=== PATIENT | male | born 1985 | race Caucasian/White ===

== ENCOUNTER 2020-01-03 15:35 | Outpatient (REF) | payer OTHER, SELFPAY | END 2020-01-03 15:36 | disposition home or self-care (01) | LOC: HO.LAB 15:35 | PROVIDERS: Visit Provider Internal Medicine | DX: Z20.828 Contact with and (suspected) exposure to other viral communicable diseases (principal) | CPT/HCPCS: 87635 ==

== ENCOUNTER 2020-01-20 11:45 | Emergency (ER) | payer OTHER, SELFPAY ==
[2020-01-20 11:58] VITALS: BP 147/101; PULSE 88; RESP 16; TEMP 36.8; O2SAT 95; BMI 29.5
--- NOTE | 2020-01-20 12:12 | US_ITS ---
EXAMINATION: US VENOUS ULTRASOUND WITH DOPPLER LOWER EXTREMITY, RIGHT CLINICAL INFORMATION: Pain COMPARISON: None TECHNIQUE: Ultrasound of the deep veins is performed from the hip to the calf with compression sonography and color and pulse Doppler assessment. Spectral analysis with color-flow imaging is performed. FINDINGS: There is normal venous compression and respiratory variation and augmented flow. The visualized common femoral vein, superficial femoral vein, profunda femoral vein, popliteal vein, and the trifurcation region shows no evidence of deep venous thrombosis. There is no significant popliteal fossa cyst. US/US venous duplex LE RT IMPRESSION: No DVT demonstrated in the right lower extremity.
--- NOTE | 2020-01-20 12:12 | XR_ITS ---
EXAMINATION: XR TIBIA AND FIBULA, RIGHT XR ANKLE, RIGHT XR FOOT, RIGHT CLINICAL INFORMATION: Pain. No trauma. COMPARISON: Right calcaneus radiographs 01/29/2017. TECHNIQUE: Right tibia and fibula AP and lateral views 3 views of the ankle and 3 views of the right foot combined on 5 images. FINDINGS: Right tibia and fibula: The alignment is normal. No fracture or dislocation or acute osseous abnormality is seen. Right ankle: The ankle mortise is symmetric. The talar dome is intact. No fracture or dislocation or acute osseous abnormality is seen. Right foot: The alignment is normal. No fracture, dislocation or acute osseous abnormality is seen. XR/XR foot RT min 3V IMPRESSION: Unremarkable examinations.
--- NOTE | 2020-01-20 12:12 | XR_ITS ---
EXAMINATION: XR TIBIA AND FIBULA, RIGHT XR ANKLE, RIGHT XR FOOT, RIGHT CLINICAL INFORMATION: Pain. No trauma. COMPARISON: Right calcaneus radiographs 01/29/2017. TECHNIQUE: Right tibia and fibula AP and lateral views 3 views of the ankle and 3 views of the right foot combined on 5 images. FINDINGS: Right tibia and fibula: The alignment is normal. No fracture or dislocation or acute osseous abnormality is seen. Right ankle: The ankle mortise is symmetric. The talar dome is intact. No fracture or dislocation or acute osseous abnormality is seen. Right foot: The alignment is normal. No fracture, dislocation or acute osseous abnormality is seen. XR/XR ankle RT 2V IMPRESSION: Unremarkable examinations.
--- NOTE | 2020-01-20 12:12 | US_ITS ---
EXAMINATION: ULTRASOUND LOWER EXTREMITY ARTERIAL DOPPLER CLINICAL INFORMATION: Evaluate for arterial occlusion COMPARISON: None TECHNIQUE: Grayscale and color Doppler sonographic evaluation of the right lower extremity arterial vasculature performed with spectral analysis FINDINGS: Trace plaque present within the common femoral artery. Otherwise, no significant atherosclerotic vascular disease is present. RIGHT (PSV/Waveform): * KETTLE COOK: 109 cm/s, triphasic * PFA: 51 cm/s, triphasic * Proximal SFA: 107 cm/s, triphasic * Mid SFA: 103 cm/s, triphasic * Distal SFA: 70 cm/s, triphasic * Popliteal: 38cm/s, triphasic * ROUTE SALES ASSOCIATE: 60 cm/s, 70 cm/s, triphasic US/US arterial duplex LE RT IMPRESSION: No arterial occlusion within the left lower extremity. Trace soft plaque present within the common femoral artery.
--- NOTE | 2020-01-20 12:12 | XR_ITS ---
EXAMINATION: XR TIBIA AND FIBULA, RIGHT XR ANKLE, RIGHT XR FOOT, RIGHT CLINICAL INFORMATION: Pain. No trauma. COMPARISON: Right calcaneus radiographs 01/29/2017. TECHNIQUE: Right tibia and fibula AP and lateral views 3 views of the ankle and 3 views of the right foot combined on 5 images. FINDINGS: Right tibia and fibula: The alignment is normal. No fracture or dislocation or acute osseous abnormality is seen. Right ankle: The ankle mortise is symmetric. The talar dome is intact. No fracture or dislocation or acute osseous abnormality is seen. Right foot: The alignment is normal. No fracture, dislocation or acute osseous abnormality is seen. XR/XR tibia fibula RT 2V IMPRESSION: Unremarkable examinations.
--- NOTE | 2020-01-20 12:13 | ECG_ITS ---
Test Reason : WEAKNESS Blood Pressure : / mmHG Vent. Rate : 068 BPM Atrial Rate : 068 BPM P-R Int : 182 ms QRS Dur : 084 ms QT Int : 390 ms P-R-T Axes : 043 040 045 degrees QTc Int : 414 ms Normal sinus rhythm Nonspecific ST abnormality Possible Early repolarization Borderline ECG When compared with ECG of 24-SEP-2019 21:49, No significant change was found Referred By: Kathia Pires Electronically Signed By:RANJAAN PETERS MD
--- NOTE | 2020-01-20 12:24 | ED_ITS ---
HPI - Extremity Problem General Chief complaint: Extremity Problem Stated complaint: arm pain Time Seen by Provider: 01/20/20 11:58 Source: patient Mode of arrival: ambulatory Limitations: no limitations History of Present Illness HPI Narrative: 34-year-old male with a past medical history of pulmonary embolism not on anticoagulation here with right lower extremity pain. He tells me he has had pain for 6 days and the right lower extremity with intermittent numbness and tingling over the foot. Pain is worsened with weight-bearing. He denies any injury or trauma. He feels like his right foot is cool to touch. The pain radiates all the way up to his right shoulder. Denies swelling or redness or fevers or chills. No chest pain or shortness of breath. He is also complaining of upper extremity muscle aches and soreness. MD Complaint: extremity pain and cold extremity Onset (ago): day(s) (6days) Pain Consistency: intermittent Location: right Quality: burning and sharp Radiation: proximal Relieving factors: immobilization and elevation Exacerbating factors: weight bearing, walking, exertion and palpation Associated symptoms: denies other symptoms Related Data Allergies Allergy/AdvReac Type Severity Reaction Status Date / Time No Known Allergies Allergy Verified 01/20/20 11:58 [No Known Allergies*] Review of Systems Review of Systems: Yes all other systems are reviewed and are negative Constitutional: Constitutional: Reports no additional constitutional complaints, Denies body ache(s), Denies chills, Denies fever(s), Denies headac he(s) and Denies weakness Comments: +muscle aches Eyes: Eyes: Reports no additional eye complaints and Denies change in vision ENT: Reports system reviewed and no additional complaints, except as documented, Denies dizziness, Denies headache(s), Denies nasal congestion, Denies nasal discharge and Denies neck pain Cardiovascular: Cardiovascular: Reports no additional cardiovascular complaints, Denies chest pain, Denies leg edema and Denies dyspnea Respiratory: Respiratory: Reports no additional respiratory complaints, Denies cough and Denies dyspnea Gastrointestinal: Gastrointestinal: Reports no additional gastrointestinal complaints, Denies abdominal pain, Denies diarrhea, Denies nausea and Denies vomiting Genitourinary: Genitourinary: Denies urinary incontinence Musculoskeletal: Musculoskeletal: Reports no additional musculoskeletal complaints, Denies back pain, Reports arthralgias, Denies joint swelling, Denies neck pain, Reports numbness and Reports tingling Integumentary/Breasts: Skin/Breast: Reports system reviewed and no additional complaints, except as docu and Denies rash Neurologic: Reports system reviewed and no additional complaints, except as documented, Denies Abnormal speech present, Denies dizziness, Denies headache(s), Reports numbness, Reports tingling and Denies weakness PMFSH Past Medical History Attestation statement: The following information was validated with the patient. Source: obtained from family and nursing notes reviewed Medical History Pulmonary embolism Social History Social History Alcohol intake: current Alcohol intake frequency: a few times a month Smoking Status: Current every day smoker Smoked in Last 30 Days: Yes Use of substances other than those prescribed or required for medical reasons: No Advance Directives: No Advance Directives Information Provided: No Physical Exam Vital Signs: Vital Signs: Vital Signs Temp Pulse Resp BP Pulse Ox 01/20/20 14:52 18 150/90 H 01/20/20 11:58 98.3 F 88 16 147/101 H 95 Body Mass Index 29.5 Const: General: cooperative, healthy appearing, comfortable and no acute distress Orientation/consciousness: patient oriented x3 Limitations: no limitations HENMT: Head: Yes normal to inspection Ears: hearing grossly normal bilaterally General nose exam: Normal external nose present Face and sinus: Yes normal facial exam Mouth: Normal oral and palatal mucosa present Throat: Yes posterior oropharynx normal Eyes: General: appearance normal, both eyes and all related structures Pupils: Equal, round and reactive pupils present Neck: Neck: Yes normal visual inspection Chest: Chest palpation & inspection: normal inspection of the chest Resp: Effort & Inspection: normal respiratory effort Auscultation: clear to auscultation bilaterally Cardio: Rate: regular rate Rhythm: regular rhythm Peripheral pulses: Peripheral pulses 2+ throughout GI: Inspection: Yes normal to inspection Palpation (GI): Soft to palpation and nontender Auscultation: normal bowel sounds Back/Spine/Pelvis: Thoracic/Lumbar Spine: thoracic and lumbar spine normal to inspection Skin: General skin exam: no rashes or lesions noted Neuro: General: patient oriented x3, Normal light touch and pain sensation, no focal motor deficits and normal sensation to monofilament Cranial nerves: Yes CN's II-XII intact bilaterally, Yes Equal, round and reactive pupils present and Yes Bilaterally intact EOM present Cognition (Neuro): normal cognition Speech: No Abnormal speech present Gait exam (Neuro): Normal gait present Motor exam (neuro): 5/5 motor strength present throughout Sensory Exam: Normal double simultaneous stimulation for sensation Deep tendon reflexes (DTR's): Right patellar reflex intensity grade: 2+ and Left patellar reflex intensity grade: 2+ Coordination: [id number] test normal, [id number] test normal and tandem gait normal Extrem: Other: Over right foot unable to palpate DP, PT pulse intact. General: Yes normal to inspection Right upper extremity: normal to inspection, full ROM and normal capillary refill; no cyanosis, no edema and joint enlargement noted Left upper extremity: normal to inspection, full ROM and normal capillary refill; no cyanosis, no edema and joint enlargement noted Right lower extremity: normal to inspection, full ROM ( Patient is able to dorsiflex and plantar flex the right foot.) and foot ( Pain to the heel and over the medial ankle. ) Details: abnormal to inspection ( digits 1 through 3 are discolored, cool to touch. Delayed cap refill, sensation intact ); no edema and joint enlargement noted Left lower extremity: normal to inspection, full ROM and normal capillary refill; no cyanosis and no edema Course Course Course Narrative: 34-year-old male with past medical history of pulmonary embolism not currently on anticoagulation here with RLE pain, intermittent numbness/tingling X6 days. Also complaining of some muscle aches in the upper extremities. No shortness of breath, cough or chest pain. On exam the patient has no obvious swelling to the right lower extremity. No obvious erythema. His sensation is intact on exam. He does have some coolness over the 1st through 3rd digits and some delayed cap refill. Full range of motion of the joint. Unable to palpate dorsalis pedis pulses. However, able to palpate posterior tibial. Patient will need labs including CPK, venous and arterial ultrasound of the right lower extremity, x-rays of the right lower extremity. 1530- both arterial and venous ultrasounds are negative. There is no arterial occlusion or DVT. X-ray showed no underlying fracture. Labs are unremarkable. I went in to re-examine the patient. Had his feet underneath a warm blanket. On reassessment I am able to palpate a dorsalis pedis pulse. His distal digits appear pink, warm with good cap refill. Pain is much improved. Dr. Olmstead at bedside who agrees with assessment. Plan to have patient follow-up with co flory Sage. May need workup for underlying vasculitis, raynauds disease. we discussed smoking cessation. Supportive care at home. Reviewed worrisome signs and symptoms and when to return to the emergency department. Comfortable discharge home. MDM - Extremity (Nontraumatic) MDM Narrative Medical decision making narrative: Arterial occlusion, DVT of the right lower extremity, electrolyte abnormality, cellulitis, fracture, rhabdo Lab Data Result diagrams: 01/20/20 12:27 01/20/20 12:27 Labs: Lab Results 01/20/20 01/20/20 01/20/20 Range/Units 12:27 12:27 12:27 WBC 10.7 (4.8-10.8) X10*3/uL RBC 6.00 H (4.60-5.80) X10*6/uL Hgb 17.5 (14.0-18.0) g/dl Hct 51.6 (42-52) % MCV 86.0 (80-98) fL MCH 29.2 (27.0-33.0) pg MCHC 33.9 (31.0-36.0) g/dl RDW 12.4 (11.0-16.0) % Plt Count 324 (160-400) X10*3/uL MPV 9.2 L (9.4-12.4) fL Immature Gran % (Auto) 0.3 (0.0-0.4) % Neut % (Auto) 65.4 (45-73) % Lymph % (Auto) 21.6 (20-40) % Cam[place] % (Auto) 6.9 (2-11) % Eos % (Auto) 5.1 H (0-4) % Baso % (Auto) 0.7 (0-2) % Lymph # (Auto) 2.3 (1.2-4.9) X10*3/uL [place] # (Auto) 0.7 (0.1-1.2) X10*3/uL Eos # (Auto) 0.6 H (0.0-0.4) X10*3/uL Baso # (Auto) 0.1 (0.0-0.2) X10*3/uL Abs Immat Gran (auto) 0.03 (0.00-0.03) X10*3/uL Absolute Neuts (auto) 7.0 (2.0-8.3) X10*3/uL Absolute Nucleated RBC 0.000 (0.0-0.012) X10*3/uL Nucleated RBC % (auto) 0.0 (0.0-0.2) /100WBC PT 11.8 (10.8-13.0) SEC INR 1.0 (0.9-1.1) Sodium 138 (135-145) mmol/L Potassium 4.6 (3.3-5.1) mmol/l Chloride 102 (96-108) mmol/L Carbon Dioxide 26 (22-29) mmol/L Anion Gap 15 (12-20) BUN 16 (9-16) mg/dL Creatinine 0.98 (0.5-1.4) mg/dL Estim Creat Clear Calc 117.1 Estimated GFR > 60 Random Glucose 87 (60-115) mg/dL Calcium 9.4 (8.4-10.2) mg/dL Magnesium 2.1 (1.6-2.6) mg/dL Total Bilirubin 0.4 (0.0-1.0) mg/dL Direct Bilirubin 0.2 (0.0-0.5) mg/dL AST 45 H (5-37) U/L ALT 74 H (0-40) U/L Alkaline Phosphatase 113 (39-117) U/L Total Creatine Kinase 219 H (38-174) U/L Total Protein 7.7 (6.5-8.0) g/dL Albumin 4.8 (3.5-5.0) g/dL Imaging Data arterial US RLE : My impression: Read as no arterial occlusion in the LLE-however report notes RLE with no arterial occlusion. Confirmed with US tech this was RLE. Will notify radiologist. Radiologist's impression: EXAMINATION: ULTRASOUND LOWER EXTREMITY ARTERIAL DOPPLER CLINICAL INFORMATION: Evaluate for arterial occlusion COMPARISON: None TECHNIQUE: Grayscale and color Doppler sonographic evaluation of the right lower extremity arterial vasculature performed with spectral analysis FINDINGS: Trace plaque present within the common femoral artery. Otherwise, no significant atherosclerotic vascular disease is present. RIGHT (PSV/Waveform): * MANAGER FRONT OFFICE: 109 cm/s, triphasic * PFA: 51 cm/s, triphasic * Proximal SFA: 107 cm/s, triphasic * Mid SFA: 103 cm/s, triphasic * Distal SFA: 70 cm/s, triphasic * Popliteal: 38cm/s, triphasic * SHEET ROLLER OPERATOR: 60 cm/s, 70 cm/s, triphasic US/US arterial duplex LE RT IMPRESSION: No arterial occlusion within the left lower extremity. Trace soft plaque present within the common femoral artery. venous RLE: Attestation: I personally reviewed and interpreted this imaging study as follows: Radiologist's impression: EXAMINATION: US VENOUS ULTRASOUND WITH DOPPLER LOWER EXTREMITY, RIGHT CLINICAL INFORMATION: Pain COMPARISON: None TECHNIQUE: Ultrasound of the deep veins is performed from the hip to the calf with compression sonography and color and pulse Doppler assessment. Spectral analysis with color-flow imaging is performed. FINDINGS: There is normal venous compression and respiratory variation and augmented flow. The visualized common femoral vein, superficial femoral vein, profunda femoral vein, popliteal vein, and the trifurcation region shows no evidence of deep venous thrombosis. There is no significant popliteal fossa cyst. US/US venous duplex LE RT IMPRESSION: No DVT demonstrated in the right lower extremity. right ankle/foot/tibia/fibia: Attestation: I personally reviewed and interpreted this imaging study as follows: Radiologist's impression: EXAMINATION: XR TIBIA AND FIBULA, RIGHT XR ANKLE, RIGHT XR FOOT, RIGHT CLINICAL INFORMATION: Pain. No trauma. COMPARISON: Right calcaneus radiographs 01/29/2017. TECHNIQUE: Right tibia and fibula AP and lateral views 3 views of the ankle and 3 views of the right foot combined on 5 images. FINDINGS: Right tibia and fibula: The alignment is normal. No fracture or dislocation or acute osseous abnormality is seen. Right ankle: The ankle mortise is symmetric. The talar dome is intact. No fracture or dislocation or acute osseous abnormality is seen. Right foot: The alignment is normal. No fracture, dislocation or acute osseous abnormality is seen. XR/XR ankle RT 2V IMPRESSION: Unremarkable examinations. ECG Data Attestation EKG: I personally reviewed and interpreted this ECG as follows: ECG interpretation date: 01/20/20 Interpretation: normal sinus rhythm with a rate of 68, FRANNY, normal QRS, or QT, nonspecific ST changes Discharge Plan Discharge Clinical Impression: Acute pain Patient Disposition: Home, Self-Care Instructions: Leg Pain (ED) Additional Instructions: stop smoking. Buy compression stockings and use daily. Elevate and ice the extremity. Motrin every 6-8 hours as needed for pain call Dr. Sage tomorrow morning for an appointment Referrals: Jose Sage MD [Physician] - 2 days Stand Alone Forms: Work/School Release Interventions: ED Discharge Assessment Last Done: 01/20/20 15:12 Discharge Date/Time: 01/20/20 15:12
[2020-01-20 12:42] LABS: Basophils Absolute Auto 0.1 X10*3/uL (0.0-0.2); Basophils Percent Auto 0.7 % (0-2); Eosinophils Absolute Auto 0.6 X10*3/uL (0.0-0.4); Eosinophils Percent Auto 5.1 % (0-4); Hematocrit 51.6 % (42-52); Hemoglobin 17.5 g/dl (14.0-18.0); Imm Gran Abs Auto 0.03 X10*3/uL (0.00-0.03); Imm Gran Pct Auto 0.3 % (0.0-0.4); Lymphocytes Absolute Auto 2.3 X10*3/uL (1.2-4.9); Lymphocytes Percent Auto 21.6 % (20-40); Mean Corpuscular HGB Conc 33.9 g/dl (31.0-36.0); Mean Corpuscular Hemoglobin 29.2 pg (27.0-33.0); Mean Platelet Volume 9.2 fL (9.4-12.4); Monocytes Absolute Auto 0.7 X10*3/uL (0.1-1.2); Monocytes Percent Auto 6.9 % (2-11); Neutrophils Percent Auto 65.4 % (45-73); Platelet Count 324 X10*3/uL (160-400); Red Cell Distribution Width 12.4 % (11.0-16.0); White Blood Count 10.7 X10*3/uL (4.8-10.8)
[2020-01-20 12:43] LABS: MANUAL DIFF FLAG NO
[2020-01-20] MEDS: oxyCODONE HCl Immed Release 5 MG TABLET PO (12:52)
[2020-01-20 12:55] LABS: Prothrombin Time 11.8 SEC (10.8-13.0)
[2020-01-20 13:06] LABS: Alanine Aminotransferase 74 U/L (0-40); Albumin Level 4.8 g/dL (3.5-5.0); Alkaline Phosphatase 113 U/L (39-117); Anion Gap 15 (12-20); Aspartate Amino Transferase 45 U/L (5-37); Bilirubin Direct 0.2 mg/dL (0.0-0.5); Bilirubin Total 0.4 mg/dL (0.0-1.0); Blood Urea Nitrogen 16 mg/dL (9-16); Calcium 9.4 mg/dL (8.4-10.2); Carbon Dioxide 26 mmol/L (22-29); Chloride 102 mmol/L (96-108); Creatinine Clr Calc Pharmacy 117.1; Estimated Glomerular Filt Rate > 60; Glucose Random 87 mg/dL (60-115); Magnesium 2.1 mg/dL (1.6-2.6); Potassium 4.6 mmol/l (3.3-5.1); Sodium 138 mmol/L (135-145); Total Protein 7.7 g/dL (6.5-8.0)
[2020-01-20] MEDS: 0.9 % Sodium Chloride 1,000 ML 999 ML IV (14:03)
[2020-01-20 14:52] VITALS: BP 150/90; RESP 18
== END 2020-01-20 15:12 | disposition home or self-care (01) ==
PROVIDERS: Nurse Practitioner Family; Emergency Provider Emergency Medicine
DX: R60.0 Localized edema (principal); M79.601 Pain in right arm; M79.661 Pain in right lower leg; Z79.01 Long term (current) use of anticoagulants; Z79.899 Other long term (current) drug therapy; Z86.711 Personal history of pulmonary embolism
CPT/HCPCS: 36415; 73590; 73600; 73630; 80048; 80076; 82550; 83735; 85025; 85610; 93005; 93926; 93971; 96360; 99284

== ENCOUNTER → 2020-01-31 10:30 | Outpatient (BNVA) | payer OTHER, SELFPAY | PROVIDERS: Visit Provider Surgery Vascular Surgery | DX: M72.2 Plantar fascial fibromatosis (principal) | CPT/HCPCS: 99202 ==

== ENCOUNTER 2020-02-21 16:41 | Outpatient (REF) | payer OTHER, SELFPAY | END 2020-02-21 16:42 | disposition home or self-care (01) | LOC: HO.LAB 16:41 | PROVIDERS: Visit Provider Internal Medicine | DX: Z20.828 Contact with and (suspected) exposure to other viral communicable diseases (principal) | CPT/HCPCS: C9803; U0003 ==

== ENCOUNTER 2020-04-11 15:34 | Emergency (ER) | payer OTHER, SELFPAY ==
[2020-04-11 18:20] VITALS: BP 134/70; PULSE 91; RESP 18; TEMP 36.9; O2SAT 98; BMI 31.0
--- NOTE | 2020-04-11 18:31 | ED_ITS ---
HPI - General Adult General Chief complaint: Upper Respiratory Symptoms Stated complaint: Covid symptoms Time Seen by Provider: 04/11/20 18:22 Source: patient Mode of arrival: ambulatory Limitations: no limitations History of Present Illness HPI narrative: 34-year-old male here with complaints of productive cough, malaise, sinus pressure times several days. Also complaining of nausea and vomiting. No diarrhea, abdominal pain, fevers, chills, body aches. Onset (ago): day(s) Related Data Home Medications Medication Instructions Recorded Confirmed ibuprofen 800 mg tablet 800 mg PO TID 01/31/20 Previous Rx's Medication Instructions Recorded doxycycline monohydrate 100 mg PO BID #21 cap 04/11/20 Allergies Allergy/AdvReac Type Severity Reaction Status Date / Time No Known Allergies Allergy Verified 04/11/20 18:23 [No Known Allergies*] Review of Systems Review of Systems: Yes all other systems are reviewed and are negative Constitutional: Constitutional: Reports no additional constitutional complaints, Denies body ache(s), Denies chills, Denies fever(s), Denies headache(s), Reports malaise and Denies weakness Eyes: Eyes: Reports no additional eye complaints and Denies change in vision ENT: Reports system reviewed and no additional complaints, except as documented, Denies dizziness, Denies headache(s), Denies nasal congestion, Denies nasal discharge, Denies neck pain, Reports sinus pain and Reports sinus pressure Cardiovascular: Cardiovascular: Reports no additional cardiovascular complaints, Denies chest pain, Denies leg edema and Denies dyspnea Respiratory: Respiratory: Reports no additional respiratory complaints, Reports cough and Denies dyspnea Gastrointestinal: Gastrointestinal: Reports no additional gastrointestinal complaints, Denies abdominal pain, Denies diarrhea, Reports nausea and Reports vomiting Genitourinary: Genitourinary: Denies urinary incontinence Musculoskeletal: Musculoskeletal: Reports no additional musculoskeletal complaints, Denies back pain, Denies arthralgias, Denies joint swelling, Denies neck pain, Denies numbness and Denies tingling Integumentary/Breasts: Skin/Breast: Reports system reviewed and no additional complaints, except as docu and Denies rash Neurologic: Reports system reviewed and no additional complaints, except as documented, Denies Abnormal speech present, Denies dizziness, Denies headache(s), Denies numbness, Denies tingling and Denies weakness [facility] Past Medical History Attestation statement: The following information was validated with the patient. Source: old records reviewed and nursing notes reviewed Medical History Pulmonary embolism Surgical History History of appendectomy Social History Social History Alcohol intake: unknown Smoking Status: Current every day smoker Use of substances other than those prescribed or required for medical reasons: No Advance Directives: No Advance Directives Information Provided: No Physical Exam Vital Signs: Vital Signs: Last Vital Signs Temp 98.5 F 04/11/20 20:41 Pulse 91 04/11/20 20:41 Resp 18 04/11/20 20:41 BP 134/70 04/11/20 20:41 Pulse Ox 98 04/11/20 20:41 Body Mass Index 31.0 Const: General: cooperative, healthy appearing, comfortable and no acute distress Orientation/consciousness: patient oriented x3 Limitations: no limitations HENMT: Head: Yes normal to inspection Ears: hearing grossly normal bilaterally General nose exam: Normal external nose present Face and sinus: Yes normal facial exam and Yes sinus tenderness Mouth: Normal oral and palatal mucosa present Throat: Yes posterior oropharynx normal Eyes: General: appearance normal, both eyes and all related structures Pupils: Equal, round and reactive pupils present Neck: Neck: Yes normal visual inspection Chest: Chest palpation & inspection: normal inspection of the chest Resp: Effort & Inspection: normal respiratory effort Auscultation: clear to auscultation bilaterally Cardio: Rate: regular rate Rhythm: regular rhythm Peripheral pulses: Peripheral pulses 2+ throughout GI: Inspection: Yes normal to inspection Palpation (GI): Soft to palpation and nontender Auscultation: normal bowel sounds Back/Spine/Pelvis: Thoracic/Lumbar Spine: thoracic and lumbar spine normal to inspection Skin: General skin exam: no rashes or lesions noted Neuro: General: patient oriented x3, no focal motor deficits and normal sensation to monofilament Cranial nerves: Yes Equal, round and reactive pupils present Cognition (Neuro): normal cognition Speech: No Abnormal speech present Gait exam (Neuro): Normal gait present Motor exam (neuro): 5/5 motor strength present throughout Extrem: General: Yes normal to inspection Course Course Course Narrative: 34 yo male here with flu like symptoms x several days. COVID testing, CXR. 2030-chest x-ray unremarkable. COVID test negative. Likely sinusitis. Reviewed worrisome signs symptoms of when to return to the emergency department. Comfortable discharge home. Medical Decision Making Medical Records Medical records reviewed: Yes I reviewed the patient's medical records. Lab Data Lab results reviewed: Yes I reviewed the patient's lab results. Labs: Lab Results 04/11/20 Range/Units 18:26 Coronavirus (PCR) NEGATIVE (Negative) Influenza Type A (PCR) NEGATIVE (Negative) Influenza Type B (PCR) NEGATIVE (Negative) RSV RNA Qual (PCR) NEGATIVE (Negative) Imaging Data Chest x-ray: Attestation: I personally reviewed and interpreted this imaging study as follows: Radiologist's impression: EXAMINATION: XR CHEST CLINICAL INFORMATION: Cough, evaluate for pneumonia COMPARISON: 03/11/2019 TECHNIQUE: 2 views of the chest were obtained. FINDINGS: No convincing evidence for an acute process. Exams comparable to previous. No obvious acute infiltrate. Some probable chronic markings. The heart size is within normal limits. The hilar structures do not appear pathologically enlarged. There is no effusion. XR/XR chest 2V IMPRESSION: No convincing evidence for an acute process. Discharge Plan Discharge Clinical Impression: Sinusitis Qualifiers: Sinusitis location: frontal Chronicity: acute Recurrence: non-recurrent Qual ified Code(s): J01.10 - Acute frontal sinusitis, unspecified Patient Disposition: Home, Self-Care Instructions: Sinusitis (ED) Additional Instructions: Increase fluids, rest Your COVID test was negative. Prescriptions: New doxycycline monohydrate 100 mg capsule 100 mg PO BID Qty: 21 RF: 0 Referrals: Physician,Unknown [Primary Care Provider] - 2 days Interventions: ED Discharge Assessment Last Done: 04/11/20 20:44 Discharge Date/Time: 04/11/20 20:45
--- NOTE | 2020-04-11 18:48 | XR_ITS ---
EXAMINATION: XR CHEST CLINICAL INFORMATION: Cough, evaluate for pneumonia COMPARISON: 03/11/2019 TECHNIQUE: 2 views of the chest were obtained. FINDINGS: No convincing evidence for an acute process. Exams comparable to previous. No obvious acute infiltrate. Some probable chronic markings. The heart size is within normal limits. The hilar structures do not appear pathologically enlarged. There is no effusion. XR/XR chest 2V IMPRESSION: No convincing evidence for an acute process.
[2020-04-11 20:17] LABS: Influenza A PCR NEGATIVE (Negative); Influenza B PCR NEGATIVE (Negative); Resp Syncy Virus RNA Qual PCR NEGATIVE (Negative); SARS COV2 PCR INHOUSE NEGATIVE (Negative)
[2020-04-11 20:41] VITALS: BP 134/70; PULSE 91; RESP 18; TEMP 36.9; O2SAT 98
== END 2020-04-11 20:45 | disposition home or self-care (01) ==
PROVIDERS: Nurse Practitioner Family; Emergency Provider Emergency Medicine
DX: J01.10 Acute frontal sinusitis, unspecified (principal); Z20.822 Contact with and (suspected) exposure to COVID-19; F17.200 Nicotine dependence, unspecified, uncomplicated; Z86.711 Personal history of pulmonary embolism
CPT/HCPCS: 0241U; 36415; 71046; 99283; 99284

== ENCOUNTER 2020-05-28 13:58 | Outpatient (REF) | payer OTHER, SELFPAY | END 2020-05-28 13:59 | disposition home or self-care (01) | LOC: HO.LAB 13:58 | PROVIDERS: Visit Provider Internal Medicine | DX: Z20.822 Contact with and (suspected) exposure to COVID-19 (principal) | CPT/HCPCS: 36415; C9803; U0003; U0005 ==

== ENCOUNTER 2020-06-02 16:12 | Emergency (ER) | payer OTHER, SELFPAY ==
--- NOTE | ~2020-06-02 | XR_ITS ---
EXAMINATION: XR FINGER, LEFT CLINICAL INFORMATION: Left After trauma. COMPARISON: None TECHNIQUE: 3 views of the left index finger. FINDINGS: 3 views of left index finger reveals no visible acute fracture, dislocation or subluxation. The soft tissues are normal. XR/XR finger LT min 2V IMPRESSION: Unremarkable left index finger exam.
[2020-06-02 16:13] VITALS: BP 145/83; PULSE 87; RESP 18; TEMP 37.1; O2SAT 98; BMI 29.5
--- NOTE | 2020-06-02 18:03 | ED.EXTPRO ---
HPI - Extremity Problem General Chief complaint: Extremity Injury, Upper Stated complaint: finger injury - 2 days ago Time Seen by Provider: 06/02/20 18:26 Source: patient Mode of arrival: ambulatory Limitations: no limitations History of Present Illness HPI Narrative: 35-year-old male with no significant past medical history presents with left index finger injury. States that he crushed his finger while moving heavy objects and is having a difficult time moving the finger because of pain. States that the tip feels numb and when he presses on the side of his fingernail has intense pain. He has been biting his fingernails, states that his home life has been stressful. MD Complaint: extremity pain and extremity swelling Onset (ago): day(s) (2) Pain Consistency: constant Location: left (Index finger) Severity scale (1-10): 9 Quality: aching and constant Relieving factors: nothing Exacerbating factors: range of motion and palpation Associated symptoms: denies other symptoms Related Data Home Medications Medication Instructions Recorded Confirmed ibuprofen 800 mg tablet 800 mg PO TID 01/31/20 Previous Rx's Medication Instructions Recorded doxycycline monohydrate 100 mg PO BID #21 cap 04/11/20 amoxicillin-pot clavulanate 1 tab PO Q12H 7 Days #14 tab 06/02/20 [Augmentin] oxycodone 5 mg PO Q8H PRN #3 tab 06/02/20 Allergies Allergy/AdvReac Type Severity Reaction Status Date / Time No Known Allergies Allergy Verified 04/11/20 18:23 [No Known Allergies*] Review of Systems Review of Systems: Constitutional: No Fever, No Chills ENT/Mouth: No Ear Pain, No Hoarseness, No sore throat Eyes: No Eye Pain, No Swelling, No Redness, No Foreign Body Cardiovascular: No Chest Pain, No SOB Respiratory: No Cough, No Dyspnea Gastrointestinal: No Nausea, No Vomiting, No Diarrhea, No abdominal Pain Genitourinary: No Dysuria, No Hematuria Musculoskeletal: positive left index finger pain and swelling, No Myalgias Skin: No Skin lacerations, No rash Neuro: No Weakness, No Numbness, No Paresthesias, No Loss of Consciousness, No Dizziness, No Headache Psych: No Anxiety/Panic, No Depression Heme/Lymph: no easy bruising, no Lymphadenopathy Endocrine: No Polyuria, No Polydipsia Yes all other systems are reviewed and are negative PMFSH Past Medical History Attestation statement: The following information was validated with the patient. Source: old records reviewed Medical History Pulmonary embolism Surgical History History of appendectomy Social History Social History Alcohol intake: unknown Smoking Status: Current every day smoker Advance Directives: No Advance Directives Information Provided: No Physical Exam Vital Signs: Vital Signs: Last Vital Signs Temp 98.7 F 06/02/20 16:13 Pulse 87 06/02/20 16:13 Resp 18 06/02/20 16:13 BP 145/83 H 06/02/20 16:13 Pulse Ox 98 06/02/20 16:13 Body Mass Index 29.5 Appearance: Alert. Oriented X3. No acute distress. Eyes: Pupils equal, round and reactive to light. ENT: Pharynx normal. Neck: Normal inspection. Neck supple. CVS: Normal heart rate and rhythm. Pulses normal. Respiratory: No respiratory distress. Breath sounds normal. Abdomen: Soft and nontender. Skin: Erythema and pustule to the left medial distal index finger consistent with paronychia, otherwise Skin warm and dry. Normal skin color. Normal skin turgor. Extremities: No lower extremity edema. Neuro: No motor deficit. No sensory deficit. Course Course Course Narrative: 35-year-old male with no significant past medical history presents with left index finger pain. X-rays are negative for acute findings, distal flange exam consistent with paronychia, also consistent with his history of biting his fingernails. Will update his Tdap vaccine today. Prepped and draped in sterile fashion, incised with 11 blade, approximately 0.5 mL of purulent fluid from incision. Patient tolerated procedure well. Please refer to procedure note. Approximately 20 minutes after incision, patient has full range of motion, brisk capillary refill, no indication of tendon injury. Plan of care is to discharge home with Augmentin. Patient verbalized understanding of and agrees plan of care to discharge home. Procedures Abscess I/D Site: other (Index finger) Side (if applicable): left Local Anesthetic: lidocaine 2% Amount of anesthesia used (mL): 2 Technique: incised with blade Amount of fluid expressed (mL): 0.5 Sent for culture/gram staining?: No Irrigation: No Packing used?: none MDM - Extremity (Nontraumatic) MDM Narrative Medical decision making narrative: Fracture, dislocation, paronychia, nail avulsion Differential Diagnosis Differential diagnosis: Likely cellulitis Medical Records Attestation: I reviewed the patient's medical records. Imaging Data Finger x-ray: Attestation: I personally reviewed and interpreted this imaging study as follows: Radiologist's impression: EXAMINATION: XR FINGER, LEFT CLINICAL INFORMATION: Left After trauma. COMPARISON: None TECHNIQUE: 3 views of the left index finger. FINDINGS: 3 views of left index finger reveals no visible acute fracture, dislocation or subluxation. The soft tissues are normal. XR/XR finger LT min 2V IMPRESSION: Unremarkable left index finger exam. Discharge Plan Discharge Clinical Impression: Paronychia Patient Disposition: Home, Self-Care Instructions: Paronychia (ED) Additional Instructions: You were evaluated for left finger pain. X-ray was negative for fracture or dislocation. We treated you for paronychia, which is an infection along the cuticle line. We did cut the wound open and drained the fluid. Please take Augmentin twice a day for the next seven days. Please stop biting your finger nails. I prescribed 3 tablets of oxycodone, use this at night. This medication is a narcotic and has high risk for addiction and abuse. Do not drive or operate machinery while taking this medication. Please use Tylenol or Motrin as needed during the day. Thank you for choosing this emergency department for evaluation. Please follow-up with primary care physician as needed. Return to the emergency department for any new, concerning, or worsening symptoms. Prescriptions: New amoxicillin-pot clavulanate [Augmentin] 875-125 mg tablet 1 tab PO Q12H 7 Days Qty: 14 RF: 0 oxycodone 5 mg tablet 5 mg PO Q8H PRN (Reason: pain) Qty: 3 RF: 0 No Action doxycycline monohydrate 100 mg capsule 100 mg PO BID Qty: 21 RF: 0 Stand Alone Forms: Work/School Release Interventions: ED Discharge Assessment Last Done: 06/02/20 19:24 Discharge Date/Time: 06/02/20 19:26
[2020-06-02] MEDS: Lidocaine HCl 2 % MPF 5 ML VIAL SUBCUT (18:16)
[2020-06-02] MEDS: Amoxicillin/Potassium Clav 875 MG TABLET PO (19:15)
[2020-06-02] MEDS: Ketorolac Tromethamine 30 MG/ML VIAL IM (19:15)
== END 2020-06-02 19:26 | disposition home or self-care (01) ==
PROVIDERS: Emergency Provider Emergency Medicine
DX: L03.012 Cellulitis of left finger (principal); M79.645 Pain in left finger(s); Z86.711 Personal history of pulmonary embolism
CPT/HCPCS: 10060; 73140; 96374; 99284; J1885

== ENCOUNTER 2020-06-18 09:27 | Emergency (ER) | payer OTHER, SELFPAY ==
[2020-06-18 09:57] VITALS: BP 147/94; PULSE 84; RESP 16; TEMP 36.4; O2SAT 97; BMI 30.4
--- NOTE | 2020-06-18 10:20 | ED.EXTPRO ---
HPI - Extremity Problem General Chief complaint: Extremity Injury, Upper Stated complaint: wound check Source: patient Mode of arrival: ambulatory Limitations: no limitations History of Present Illness HPI Narrative: Patient presents to ED for swelling/redness on lateral side of novel cuticle of left finger since last week that was drained. Patient also finished antibiotic treatment. Patient states area of erythmema near lateral cuticle of left index finger was drained. Now he states increased swelling and redness but no pus. Patient denies any recent trauma to the hand. Patient admits to biting around cuticles Related Data Home Medications Medication Instructions Recorded Confirmed ibuprofen 800 mg tablet 800 mg PO TID 01/31/20 Previous Rx's Medication Instructions Recorded doxycycline monohydrate 100 mg PO BID #21 cap 04/11/20 amoxicillin-pot clavulanate 1 tab PO Q12H 7 Days #14 tab 06/02/20 [Augmentin] oxycodone 5 mg PO Q8H PRN #3 tab 06/02/20 cephalexin 500 mg PO QID #28 cap 06/18/20 doxycycline hyclate 100 mg PO BID #14 cap 06/18/20 Allergies Allergy/AdvReac Type Severity Reaction Status Date / Time No Known Allergies Allergy Verified 04/11/20 18:23 [No Known Allergies*] Review of Systems Review of Systems: Yes all other systems are reviewed and are negative Constitutional: Constitutional: Reports as per HPI and Reports no additional constitutional complaints Eyes: Eyes: Reports as per HPI and Reports no additional eye complaints ENT: Reports system reviewed and no additional complaints, except as documented and Reports as per HPI Cardiovascular: Cardiovascular: Reports as per HPI and Reports no additional cardiovascular complaints Respiratory: Respiratory: Reports as per HPI and Reports no additional respiratory complaints Gastrointestinal: Gastrointestinal: Reports as per HPI and Reports no additional gastrointestinal complaints Genitourinary: Genitourinary: Reports no additional male genitourinary complaints and Reports as per HPI Musculoskeletal: Musculoskeletal: Reports no additional musculoskeletal complaints and Reports as per HPI Comments: Left index finger Neurologic: Reports system reviewed and no additional complaints, except as documented and Reports as per HPI Psychiatric: Psychiatric: Reports no additional psychiatric complaints and Reports as per HPI PMF Past Medical History Medical History Pulmonary embolism Surgical History History of appendectomy Social History Social History Alcohol intake: unknown Smoking Status: Current every day smoker Smoked in Last 30 Days: Yes Use of substances other than those prescribed or required for medical reasons: No Advance Directives: No Advance Directives Information Provided: No Physical Exam Vital Signs: Vital Signs: Last Vital Signs Temp 97.6 F 06/18/20 09:57 Pulse 84 06/18/20 09:57 Resp 16 06/18/20 09:57 BP 147/94 H 06/18/20 09:57 Pulse Ox 97 06/18/20 09:57 Body Mass Index 30.4 Const: General: cooperative, healthy appearing, comfortable, no acute distress, well developed, alert and awake Orientation/consciousness: patient oriented x3 HENMT: Head: Yes normal to inspection, Yes No palpable skull fracture present, Yes normocephalic, Yes atraumatic, No abrasion, No Ambriz's sign, No contusion, No cranial bruits, No hematoma, No laceration, No occipital foramen tenderness, No palpable skull fracture, No raccoon eyes, No scalp lesion, No scalp tenderness, No Temporal artery tenderness present and No periorbital ecchymosis Eyes: General: appearance normal, both eyes and all related structures Neck: Neck: Yes normal visual inspection, Yes full ROM, Yes no lymphadenopathy, Yes no meningeal signs, Yes trachea midline, Yes supple and No tender Chest: Chest palpation & inspection: normal inspection of the chest and normal palpation of entire chest wall Resp: Effort & Inspection: normal respiratory effort and able to speak in complete sentences Auscultation: clear to auscultation bilaterally Cardio: Jugular venous distension: no JVD and no JVD Heart sounds: S1 normal heart sound present and S2 normal heart sound present GI: Inspection: Yes normal to inspection and No abdominal wall ecchymosis Palpation (GI): Soft to palpation, not firm, nontender, no guarding and not rigid : General: No CVA tenderness and Yes no CVA tenderness Back/Spine/Pelvis: Back: no CVA tenderness, No CVA tenderness and No back tenderness Skin: General skin exam: no rashes or lesions noted and elasticity normal Neuro: General: patient oriented x3, no meningeal signs and CN's II-XI intact bilaterally Cranial nerves: Yes CN's II-XII intact bilaterally Extrem: Other: Left hand: ( left index finger) Positive for erythema near nail cuticle on the lateral side that is tender, but negative for any green discoloration of fluctuance to indicate active drainage. Patient has complete range of motion of left index finger. Physical exam does not indicate tenosynovitis. Negative for any redness or swelling of the palm area of left index finger. The hand is normal. Vascular, motor, neuro exam is intact. Rest of left upper extremity is normal negative for signs of cellulitis or DVT. Negative for red streaks Psych: Appearance: grossly normal, well kempt and not disheveled Course Course Course Narrative: History physical exam shows cellulitis. No indication for repeat x-ray. Patient had normal x-ray last visit that was negative for osteomyelitis.. Patient afebrile and non-tachycardic . Reevaluation(s) Reevaluation #1: Patient does have a history of biting the fingernails and told to stop . Patient will be discharged with Keflex and doxycycline. MDM - Extremity (Nontraumatic) MDM Narrative Medical decision making narrative: Cellulitis Discharge Plan Discharge Clinical Impression: Cellulitis Patient Disposition: Home, Self-Care Instructions: Cellulitis (ED) Additional Instructions: Return to the ED immediately for worsening swelling, worsening pain, worsening redness, green discoloration, inability to move finger, fever, chills, or any other concerning symptoms. Recommend warm compress 4 times a day on finger. Follow-up with PCP Prescriptions: New cephalexin 500 mg capsule 500 mg PO QID Qty: 28 RF: 0 doxycycline hyclate 100 mg capsule 100 mg PO BID Qty: 14 RF: 0 No Action doxycycline monohydrate 100 mg capsule 100 mg PO BID Qty: 21 RF: 0 amoxicillin-pot clavulanate [Augmentin] 875-125 mg tablet 1 tab PO Q12H 7 Days Qty: 14 RF: 0 oxycodone 5 mg tablet 5 mg PO Q8H PRN (Reason: pain) Qty: 3 RF: 0 Stand Alone Forms: Work/School Release Interventions: ED Discharge Assessment Last Done: 06/18/20 10:47 Discharge Date/Time: 06/18/20 10:48 Print Language: Kiswahili
== END 2020-06-18 10:48 | disposition home or self-care (01) ==
PROVIDERS: Emergency Provider Emergency Medicine
DX: L03.012 Cellulitis of left finger (principal); Z79.899 Other long term (current) drug therapy; F17.200 Nicotine dependence, unspecified, uncomplicated; Z71.6 Tobacco abuse counseling
CPT/HCPCS: 99283

== ENCOUNTER 2020-08-12 18:02 | Emergency (ER) | payer OTHER, SELFPAY ==
--- NOTE | ~2020-08-12 | XR_ITS ---
EXAMINATION: XR CHEST CLINICAL INFORMATION: 04/11/2020 COMPARISON: None TECHNIQUE: Frontal view of the chest was obtained. FINDINGS: No significant abnormality is noted involving the heart, lungs, mediastinum, bony thorax or soft tissues. Compared to the prior study, there's been no significant interval change. XR/XR chest 1V IMPRESSION: Unremarkable examination.
[2020-08-12 18:15] VITALS: BP 139/89; PULSE 82; RESP 16; TEMP 36.4; O2SAT 97; BMI 30.4
--- NOTE | 2020-08-12 18:18 | ECG_ITS ---
Test Reason : CHEST PAIN Blood Pressure : / mmHG Vent. Rate : 083 BPM Atrial Rate : 083 BPM P-R Int : 182 ms QRS Dur : 084 ms QT Int : 356 ms P-R-T Axes : 041 020 044 degrees QTc Int : 418 ms Normal sinus rhythm Normal ECG When compared with ECG of 20-JAN-2020 14:07, No significant change was found Referred By: Terrance Garcia Electronically Signed By:KAREL BERG
[2020-08-12 18:51] LABS: MANUAL DIFF FLAG NO
[2020-08-12 18:52] LABS: Basophils Absolute Auto 0.1 X10*3/uL (0.0-0.2); Basophils Percent Auto 0.7 % (0-2); Eosinophils Absolute Auto 0.4 X10*3/uL (0.0-0.4); Eosinophils Percent Auto 4.4 % (0-4); Hematocrit 46.8 % (42-52); Hemoglobin 15.8 g/dl (14.0-18.0); Imm Gran Abs Auto 0.02 X10*3/uL (0.00-0.03); Imm Gran Pct Auto 0.2 % (0.0-0.4); Lymphocytes Absolute Auto 2.5 X10*3/uL (1.2-4.9); Lymphocytes Percent Auto 29.5 % (20-40); Mean Corpuscular HGB Conc 33.8 g/dl (31.0-36.0); Mean Corpuscular Hemoglobin 28.4 pg (27.0-33.0); Mean Platelet Volume 9.3 fL (9.4-12.4); Monocytes Absolute Auto 0.6 X10*3/uL (0.1-1.2); Monocytes Percent Auto 7.3 % (2-11); Neutrophils Percent Auto 57.9 % (45-73); Platelet Count 296 X10*3/uL (160-400); Red Blood Count 5.57 X10*6/uL (4.60-5.80); Red Cell Distribution Width 12.2 % (11.0-16.0); White Blood Count 8.6 X10*3/uL (4.8-10.8)
[2020-08-12 19:13] LABS: Anion Gap 16 (12-20); Blood Urea Nitrogen 11 mg/dL (9-16); Calcium 9.7 mg/dL (8.4-10.2); Carbon Dioxide 23 mmol/L (22-29); Chloride 104 mmol/L (96-108); Creatinine Clr Calc Pharmacy 120.1; Estimated Glomerular Filt Rate > 60; Glucose Random 88 mg/dL (60-115); Potassium 4.3 mmol/L (3.3-5.1); Sodium 139 mmol/L (135-145)
[2020-08-12 19:21] LABS: Troponin-I High Sensitivity < 3.5 ng/L (<3.5-35.0)
[2020-08-12 20:54] VITALS: BP 173/92; PULSE 88; RESP 16; TEMP 36.5; O2SAT 98
[2020-08-12 21:03] VITALS: PULSE 84
--- NOTE | 2020-08-12 21:37 | ED_ITS ---
HPI - Chest Pain General Chief Complaint: Chest Pain Stated Complaint: chest pain Time Seen by Provider: 08/12/20 21:02 Source: patient Mode of arrival: ambulatory History of Present Illness HPI narrative: This is a 35-year-old male past medical history significant for PE in 2004 that was considered a provocative event and now presents with point left anterior chest pain that he states radiates into the left arm and started approximately 1330 this after in and was not associated with any fevers, cough, chills, shortness of breath, diaphoresis, nausea. The pain has remained constant since that time is not associated with deep inspiration, but worsens with movement. Related Data Home Medications Medication Instructions Recorded Confirmed ibuprofen 800 mg tablet 800 mg PO TID 01/31/20 Previous Rx's Medication Instructions Recorded doxycycline monohydrate 100 mg PO BID #21 cap 04/11/20 amoxicillin-pot clavulanate 1 tab PO Q12H 7 Days #14 tab 06/02/20 [Augmentin] oxycodone 5 mg PO Q8H PRN #3 tab 06/02/20 cephalexin 500 mg PO QID #28 cap 06/18/20 doxycycline hyclate 100 mg PO BID #14 cap 06/18/20 Allergies Allergy/AdvReac Type Severity Reaction Status Date / Time No Known Allergies Allergy Verified 04/11/20 18:23 [No Known Allergies*] Review of Systems Review of Systems: Pertinent positives and negatives as stated in HPI 10 point review of systems otherwise negative. [facility] Past Medical History Source: nursing notes reviewed Medical History Pulmonary embolism Surgical History History of appendectomy Social History Social History Alcohol intake: current Alcohol intake frequency: holidays/special occasions only Alcohol type: beer and hard liquor Smoking Status: Current some day smoker Smoked in Last 30 Days: Yes Use of substances other than those prescribed or required for medical reasons: No Advance Directives: No Advance Directives Information Provided: Yes Physical Exam Vital Signs: Vital Signs: Last Vital Signs Temp 97.7 F 08/12/20 20:54 Pulse 88 08/12/20 20:54 Resp 16 08/12/20 20:54 BP 173/92 H 08/12/20 20:54 Pulse Ox 98 08/12/20 20:54 Body Mass Index 30.4 VITAL SIGNS: Reviewed. GENERAL: Well developed, well nourished, in no acute distress. HEAD: Normocephalic/atraumatic EYES: PERRLA, EOMI NOSE: Nares patent bilateral OROPHARYNX: no oral lesions noted, posterior pharynx clear NECK: Supple, no adenopathy LUNGS: Normal breath sounds. No adventitious sounds or accessory muscle use. SpO2<98> CARDIOVASCULAR: Regular rate and rhythm without noted murmurs, no JVD or lower extremity edema. ABDOMEN: Soft, non-tender, non-distended with bowel sounds. EXTREMITIES: No cyanosis, clubbing or edema. NEUROLOGIC: Alert and oriented x 4. Course Course Course Narrative: This is a 35-year-old male with history and clinical presentation suggestive of costochondritis/muscle strain and low clinical suspicion for cardiopulmonary etiology such as pneumonia, cardiac ischemia, PE. However secondary to patient's history of PE will pursue D-dimer. Review of all investigations negative for any acute findings. Results and findings discussed with patient at bedside and he was informed that recommendations will be based on presumptive costochondritis/muscle strain. MDM - Chest Pain Lab Data Result diagrams: 08/12/20 18:46 08/12/20 18:46 Labs: Lab Results 08/12/20 08/12/20 08/12/20 Range/Units 18:46 18:46 18:46 WBC 8.6 (4.8-10.8) X10*3/uL RBC 5.57 (4.60-5.80) X10*6/uL Hgb 15.8 (14.0-18.0) g/dl Hct 46.8 (42-52) % MCV 84.0 (80-98) fL MCH 28.4 (27.0-33.0) pg MCHC 33.8 (31.0-36.0) g/dl RDW 12.2 (11.0-16.0) % Plt Count 296 (160-400) X10*3/uL MPV 9.3 L (9.4-12.4) fL Immature Gran % (Auto) 0.2 (0.0-0.4) % Neut % (Auto) 57.9 (45-73) % Lymph % (Auto) 29.5 (20-40) % [place] % (Auto) 7.3 (2-11) % Eos % (Auto) 4.4 H (0-4) % Baso % (Auto) 0.7 (0-2) % Lymph # (Auto) 2.5 (1.2-4.9) X10*3/uL [place] # (Auto) 0.6 (0.1-1.2) X10*3/uL Eos # (Auto) 0.4 (0.0-0.4) X10*3/uL Baso # (Auto) 0.1 (0.0-0.2) X10*3/uL Abs Immat Gran (auto) 0.02 (0.00-0.03) X10*3/uL Absolute Neuts (auto) 5.0 (2.0-8.3) X10*3/uL Absolute Nucleated RBC 0.000 (0.0-0.012) X10*3/uL Nucleated RBC % (auto) 0.0 (0.0-0.2) /100WBC D-Dimer NG/ML Hold Blue Top Sodium 139 (135-145) mmol/L Potassium 4.3 (3.3-5.1) mmol/L Chloride 104 (96-108) mmol/L Carbon Dioxide 23 (22-29) mmol/L Anion Gap 16 (12-20) BUN 11 (9-16) mg/dL Creatinine 0.93 (0.5-1.4) mg/dL Estim Creat Clear Calc 120.1 Estimated GFR > 60 Random Glucose 88 (60-115) mg/dL Calcium 9.7 (8.4-10.2) mg/dL Troponin I High Sens < 3.5 (<3.5-35.0) ng/L 08/12/20 Range/Units 18:46 WBC (4.8-10.8) X10*3/uL RBC (4.60-5.80) X10*6/uL Hgb (14.0-18.0) g/dl Hct (42-52) % MCV (80-98) fL MCH (27.0-33.0) pg MCHC (31.0-36.0) g/dl RDW (11.0-16.0) % Plt Count (160-400) X10*3/uL MPV (9.4-12.4) fL Immature Gran % (Auto) (0.0-0.4) % Neut % (Auto) (45-73) % Lymph % (Auto) (20-40) % [place] % (Auto) (2-11) % Eos % (Auto) (0-4) % Baso % (Auto) (0-2) % Lymph # (Auto) (1.2-4.9) X10*3/uL [place] # (Auto) (0.1-1.2) X10*3/uL Eos # (Auto) (0.0-0.4) X10*3/uL Baso # (Auto) (0.0-0.2) X10*3/uL Abs Immat Gran (auto) (0.00-0.03) X10*3/uL Absolute Neuts (auto) (2.0-8.3) X10*3/uL Absolute Nucleated RBC (0.0-0.012) X10*3/uL Nucleated RBC % (auto) (0.0-0.2) /100WBC D-Dimer < 200 NG/ML Hold Blue Top SEE NOTE Sodium (135-145) mmol/L Potassium (3.3-5.1) mmol/L Chloride (96-108) mmol/L Carbon Dioxide (22-29) mmol/L Anion Gap (12-20) BUN (9-16) mg/dL Creatinine (0.5-1.4) mg/dL Estim Creat Clear Calc Estimated GFR Random Glucose (60-115) mg/dL Calcium (8.4-10.2) mg/dL Troponin I High Sens (<3.5-35.0) ng/L ECG Data ECG #1: Attestation: I personally reviewed and interpreted this ECG as follows: Prior ECG tracings: available for review (01/20/2020 no acute changes on comparison) Interpretation: Normal sinus rhythm, HR-83, no evidence of acute ischemia, AR/QRS/QTC are within normal limits. Discharge Plan Discharge Clinical Impression: Atypical chest pain, Costalchondritis, Muscle strain of anterior chest wall Patient Disposition: Home, Self-Care Instructions: Muscle Strain (ED), Costochondritis (ED) Additional Instructions: 1. Tylenol 1000 mg, orally, every 6 hours as needed for pain control. Do not exceed 4000 mg in 24 hours. 2. Ibuprofen 400 mg, orally with milk or food, every 6 hours as needed pain control. 3. Lidocaine patch, available [id number], apply to area of maximal tenderness as directed on lying outside packaging. 4. Follow-up with your primary care provider in the next 2-3 days for re- evaluation. Return to the ER for any acute worsening of your symptoms. Prescriptions: No Action doxycycline monohydrate 100 mg capsule 100 mg PO BID Qty: 21 RF: 0 amoxicillin-pot clavulanate [Augmentin] 875-125 mg tablet 1 tab PO Q12H 7 Days Qty: 14 RF: 0 oxycodone 5 mg tablet 5 mg PO Q8H PRN (Reason: pain) Qty: 3 RF: 0 cephalexin 500 mg capsule 500 mg PO QID Qty: 28 RF: 0 doxycycline hyclate 100 mg capsule 100 mg PO BID Qty: 14 RF: 0 Referrals: Physician,None [Primary Care Provider] - 2 days
[2020-08-12 21:47] LABS: D Dimer < 200 NG/ML
[2020-08-12] MEDS: Acetaminophen 325 MG TABLET 975 MG PO (21:50)
[2020-08-12] MEDS: Ketorolac Tromethamine 15 MG/ML VIAL IVPUSH (21:56)
== END 2020-08-12 22:45 | disposition home or self-care (01) ==
PROVIDERS: Internal Medicine Cardiovascular Disease; Emergency Provider Student in an Organized Health Care Education/Training Program
DX: R07.89 Other chest pain (principal); M94.0 Chondrocostal junction syndrome [Tietze]; S29.011A Strain of muscle and tendon of front wall of thorax, initial encounter; X58.XXXA Exposure to other specified factors, initial encounter; F17.200 Nicotine dependence, unspecified, uncomplicated; Y93.9 Activity, unspecified; Y92.9 Unspecified place or not applicable; Y99.9 Unspecified external cause status; Z86.711 Personal history of pulmonary embolism
CPT/HCPCS: 36415; 71045; 80048; 84484; 85025; 85379; 93005; 96374; 99284; 99285; J1885

== ENCOUNTER 2020-10-14 09:44 | Emergency (ER) | payer SELFPAY ==
--- NOTE | 2020-10-14 | ECG_ITS ---
Test Reason : DIZZINESS Blood Pressure : / mmHG Vent. Rate : 080 BPM Atrial Rate : 080 BPM P-R Int : 168 ms QRS Dur : 084 ms QT Int : 372 ms P-R-T Axes : 046 039 054 degrees QTc Int : 429 ms Normal sinus rhythm Normal ECG When compared with ECG of 12-AUG-2020 18:12, No significant change was found Referred By: Generic ED Physician Electronically Signed By:KAREL BERG
--- NOTE | ~2020-10-14 | CT_ITS ---
EXAMINATION: CT ABDOMEN AND PELVIS WITH CONTRAST CLINICAL INFORMATION: Abdominal pain and bloody diarrhea COMPARISON: Previous CT of the pelvis April 2019 TECHNIQUE: Multidetector volumetric images were obtained from the superior aspect of the liver through the pubic symphysis following administration 85 mL of Omnipaque 350 intravenous contrast. Sagittal and coronal reformatted images were obtained on the technologist's workstation. Oral contrast: Yes This CT examination was performed using dose optimization techniques as appropriate, variously including the following: *Automated exposure control *Adjustment of mA and/or kV according to patient size (this includes techniques or standardized protocols for targeted exams where dose is matched to indication/reason for exam; i.e. extremities or head) *Use of iterative reconstruction technique DLP: 657 mGy-cm FINDINGS: LUNG BASES: The visualized lung bases are unremarkable. LIVER, GALLBLADDER, AND BILIARY TREE: The liver is normal in size, shape, and attenuation. No focal hepatic lesion or biliary ductal dilatation is present. The gallbladder is unremarkable with no evidence of radiopaque gallstones, gallbladder wall thickening, or obvious pericholecystic inflammatory changes. PANCREAS: Unremarkable. SPLEEN: Unremarkable. ADRENAL GLANDS: Unremarkable. KIDNEYS AND URETERS: The kidneys are normal in size, shape, and attenuation. There is is a nonobstructing 1 to 2 mm stone in the lower pole of the right kidney. There is no hydronephrosis. BLADDER: Unremarkable. GASTROINTESTINAL TRACT: There is mild diverticulosis of the colon. No evidence of diverticulitis is seen. There is mild wall thickening of the left colon and sigmoid colon questionable for mild colitis. Small and large bowel is otherwise unremarkable. The appendix is unremarkable. ABDOMINAL WALL: No significant hernia is appreciated. LYMPH NODES: Normal. VASCULAR: There is noncalcified plaque seen in the anterior mid abdominal aorta. No aneurysm is seen. The mesenteric vessels are patent. PELVIC VISCERA: Unremarkable. OSSEOUS STRUCTURES: There is degenerative disc disease at L5-S1. CT/CT abdomen pelvis w con IMPRESSION: Question mild colitis of the distal colon. Mild diverticulosis of the colon. No evidence of diverticulitis. Small nonobstructing right renal stone.
[2020-10-14 10:58] VITALS: BP 135/78; PULSE 80; RESP 18; TEMP 36.5; O2SAT 96; BMI 29.5
[2020-10-14 11:39] LABS: MANUAL DIFF FLAG NO
[2020-10-14 11:40] LABS: Basophils Percent Auto 0.5 % (0-2); Eosinophils Absolute Auto 0.4 X10*3/uL (0.0-0.4); Eosinophils Percent Auto 4.9 % (0-4); Hematocrit 43.8 % (42-52); Hemoglobin 15.2 g/dl (14.0-18.0); Imm Gran Abs Auto 0.02 X10*3/uL (0.00-0.03); Imm Gran Pct Auto 0.3 % (0.0-0.4); Lymphocytes Absolute Auto 1.6 X10*3/uL (1.2-4.9); Lymphocytes Percent Auto 20.6 % (20-40); Mean Corpuscular HGB Conc 34.7 g/dl (31.0-36.0); Mean Corpuscular Hemoglobin 29.3 pg (27.0-33.0); Mean Corpuscular Volume 84.6 fL (80-98); Monocytes Absolute Auto 0.6 X10*3/uL (0.1-1.2); Monocytes Percent Auto 8.1 % (2-11); Neutrophils Absolute Auto 5.2 X10*3/uL (2.0-8.3); Neutrophils Percent Auto 65.6 % (45-73); Platelet Count 280 X10*3/uL (160-400); Red Blood Count 5.18 X10*6/uL (4.60-5.80); Red Cell Distribution Width 12.4 % (11.0-16.0); White Blood Count 7.9 X10*3/uL (4.8-10.8)
[2020-10-14 12:07] LABS: Alanine Aminotransferase 46 U/L (0-40); Albumin Level 4.3 g/dL (3.5-5.0); Alkaline Phosphatase 88 U/L (39-117); Anion Gap 13 (12-20); Aspartate Amino Transferase 30 U/L (5-37); Bilirubin Total 0.3 mg/dL (0.0-1.0); Blood Urea Nitrogen 11 mg/dL (9-16); Calcium 9.1 mg/dL (8.4-10.2); Carbon Dioxide 25 mmol/L (22-29); Chloride 107 mmol/L (96-108); Creatinine Clr Calc Pharmacy 119.6; Estimated Glomerular Filt Rate > 60; Glucose Random 100 mg/dL (60-115); Potassium 4.1 mmol/L (3.3-5.1); Sodium 141 mmol/L (135-145); Total Protein 6.8 g/dL (6.5-8.0)
--- NOTE | 2020-10-14 12:20 | ED_ITS ---
HPI - General Adult General Chief complaint: GI Bleed Stated complaint: Blood in stool/ abd pain for a week Time Seen by Provider: 10/14/20 12:00 Source: patient Mode of arrival: ambulatory Limitations: no limitations History of Present Illness HPI narrative: 35-year-old male who presents emergency department for evaluation of abdominal pain and bloody diarrhea x1 week. The patient states that he has been having intermittent, severe, cramping in his abdomen, he localizes pain to be just below his belly button. He states that he has had 8-12 bloody diarrheal stools per day. He states the stool is mainly mucousy and the color of dark urine with streaks of red blood. He states he is feeling weak, dizzy, lig htheaded. He states that he gets occasional blurred vision. States he tried to go to work today but he was not feeling well and he was advised to go get seen in the emergency department by his employer. He denied fever, chills, chest pain, shortness of breath, nausea or vomiting. The patient has not taken antibiotics recently, he was last treated with antibiotics on 06/18/2020 and 06/02/2020 for cellulitis of his finger. At that time he was treated with Augmentin for 7 days and cephalexin for 7 days. He denies any travel outside of the country. Related Data Home Medications Medication Instructions Recorded Confirmed ibuprofen 800 mg tablet 800 mg PO TID 01/31/20 Previous Rx's Medication Instructions Recorded doxycycline monohydrate 100 mg PO BID #21 cap 04/11/20 amoxicillin-pot clavulanate 1 tab PO Q12H 7 Days #14 tab 06/02/20 [Augmentin] oxycodone 5 mg PO Q8H PRN #3 tab 06/02/20 cephalexin 500 mg PO QID #28 cap 06/18/20 doxycycline hyclate 100 mg PO BID #14 cap 06/18/20 metronidazole [Flagyl] 500 mg PO TID 7 Days #21 tab 10/14/20 morphine 15 mg PO Q4-6H PRN #10 tab 10/14/20 Allergies Allergy/AdvReac Type Severity Reaction Status Date / Time No Known Allergies Allergy Verified 10/14/20 10:58 [No Known Allergies*] Review of Systems Review of Systems: Yes all other systems are reviewed and are negative PMFSH Past Medical History Medical History Pulmonary embolism Surgical History History of appendectomy Social History Social History Alcohol intake: current Alcohol intake frequency: holidays/special occasions only Alcohol type: beer and hard liquor Patient Tobacco Use Status: Current everyday Tobacco user Use of substances other than those prescribed or required for medical reasons: No Advance Directives: No Advance Directives Information Provided: Yes Physical Exam Vital Signs: Vital Signs: Last Vital Signs Temp 98.6 F 10/14/20 14:56 Pulse 68 10/14/20 14:56 Resp 15 10/14/20 14:56 BP 135/89 10/14/20 14:56 Pulse Ox 97 10/14/20 14:56 Body Mass Index 29.5 Const: General: cooperative and healthy appearing Orientation/consciousness: oriented to person and oriented to place Limitations: no limitations HENMT: Head: Yes normal to inspection, Yes normocephalic and Yes atraumatic Ears: external ears normal General nose exam: Normal external nose present Face and sinus: Yes normal facial exam Mouth: Normal oral and palatal mucosa present Throat: Yes posterior oropharynx normal Eyes: Periorbital: periorbital findings normal Eyelids: Yes eyelids normal Conjunctivae: conjunctivae normal Sclerae: sclerae normal Corneas: corneas normal Pupils: Equal, round and reactive pupils present Direct Ophthalmoscopy: normal light reflex Neck: Neck: Yes full ROM, Yes no lymphadenopathy, Yes no meningeal signs, Yes trachea midline and Yes supple Chest: Chest palpation & inspection: normal inspection of the chest and normal palpation of entire chest wall Resp: Effort & Inspection: normal respiratory effort and able to speak in complete sentences Auscultation: clear to auscultation bilaterally Cardio: Rate: regular rate Rhythm: regular rhythm Heart sounds: S1 normal heart sound present, S2 normal heart sound present and no murmurs GI: Inspection: Yes normal to inspection Palpation (GI): Soft to palpation, Tenderness to palpation present (GI) in the LLQ (Moderate) and suprapubicly (Moderate), no guarding, not rigid and No hepatosplenomegaly present : General: Yes no CVA tenderness Back/Spine/Pelvis: Back: no CVA tenderness Cervical Spine: normal cervical lordosis Thoracic/Lumbar Spine: thoracic and lumbar spine normal to inspection Skin: Lesions: no lesions Rashes: no rashes Wounds: no wounds Neuro: General: oriented to person, oriented to place and no meningeal signs Cranial nerves: Yes CN's II-XII intact bilaterally and Yes Equal, round and reactive pupils present Cognition (Neuro): normal cognition Motor exam (neuro): 5/5 motor strength present throughout Extrem: General: Yes normal to inspection and Yes full ROM Psych: Appearance: well kempt Mental Status: mental status grossly normal Speech and movement: Normal speech and movement present Affect: normal affect Attitude: cooperative Thought process: Normal thought process present Thought content: Normal thought content present Course Course Course Narrative: 35-year-old male who presents emergency department for evaluation of lower abdominal pain and and bloody diarrheal stools x1 week. Vital signs were normal. Physical examination did reveal suprapubic and left lower quadrant tenderness. Differential includes but is not limited to viral colitis, bacterial colitis, C difficile colitis, diverticulitis. Laboratory evaluation was ordered. Stool samples will be obtained for C diff, leukocytes and stool culture. Patient was treated with normal saline x2 L. He also was given Toradol 30 mg IV for his pain and Zofran 4 mg IV for nausea. 1611: The patient's laboratory evaluation revealed a normal CBC. The patient's sedimentation rate was normal at 18 and his CRP was normal at 0.43. Patient's CT scan of the abdomen pelvis with IV contrast revealed mild distal colitis with diabetic yellow cyst but no diverticulitis. The patient was unable to give us a stool sample. He states that he is feeling slightly better after receiving the above treatment however he still having pain. At this time he wants to go home and he is also hungry wants to eat. The patient will be discharged home and started on Flagyl 500 mg 3 times a day for 7 days. He is also given a prescription for morphine 15 mg tablets, 1 pill every 4-6 hours as needed for pain. The patient was given verbal and printed instructions prior to discharge. The patient was advised to follow-up with their PCP in 2 days and to return to the emergency department if his symptoms get worse or if he develop any new symptoms that are concerning to him. Medical Decision Making Lab Data Result diagrams: 10/14/20 11:34 10/14/20 11:34 Labs: Lab Results 10/14/20 10/14/20 10/14/20 Range/Units 11:34 11:34 13:01 WBC 7.9 (4.8-10.8) X10*3/uL RBC 5.18 (4.60-5.80) X10*6/uL Hgb 15.2 (14.0-18.0) g/dl Hct 43.8 (42-52) % MCV 84.6 (80-98) fL MCH 29.3 (27.0-33.0) pg MCHC 34.7 (31.0-36.0) g/dl RDW 12.4 (11.0-16.0) % Plt Count 280 (160-400) X10*3/uL MPV 9.0 L (9.4-12.4) fL Immature Gran % (Auto) 0.3 (0.0-0.4) % Neut % (Auto) 65.6 (45-73) % Lymph % (Auto) 20.6 (20-40) % [place] % (Auto) 8.1 (2-11) % Eos % (Auto) 4.9 H (0-4) % Baso % (Auto) 0.5 (0-2) % Lymph # (Auto) 1.6 (1.2-4.9) X10*3/uL [place] # (Auto) 0.6 (0.1-1.2) X10*3/uL Eos # (Auto) 0.4 (0.0-0.4) X10*3/uL Baso # (Auto) 0.0 (0.0-0.2) X10*3/uL Abs Immat Gran (auto) 0.02 (0.00-0.03) X10*3/uL Absolute Neuts (auto) 5.2 (2.0-8.3) X10*3/uL Absolute Nucleated RBC 0.000 (0.0-0.012) X10*3/uL Nucleated RBC % (auto) 0.0 (0.0-0.2) /100WBC ESR 18 H (0-15) MM/HR Sodium 141 (135-145) mmol/L Potassium 4.1 (3.3-5.1) mmol/L Chloride 107 (96-108) mmol/L Carbon Dioxide 25 (22-29) mmol/L Anion Gap 13 (12-20) BUN 11 (9-16) mg/dL Creatinine 0.95 (0.5-1.4) mg/dL Estim Creat Clear Calc 119.6 Estimated GFR > 60 Random Glucose 100 (60-115) mg/dL Lactic Acid (0.5-2.0) mmol/L Calcium 9.1 D (8.4-10.2) mg/dL Total Bilirubin 0.3 (0.0-1.0) mg/dL AST 30 (5-37) U/L ALT 46 H (0-40) U/L Alkaline Phosphatase 88 D (39-117) U/L C-Reactive Protein (< or = 0.50) mg/dL Total Protein 6.8 (6.5-8.0) g/dL Albumin 4.3 (3.5-5.0) g/dL Urine Color Urine Appearance Urine pH (5.0-8.0) Ur Specific [place] (1.005-1.025) Urine Protein (NEG-TRACE) MG/DL Urine Glucose (UA) (NEG) MG/DL Urine Ketones (NEG) MG/DL Urine Blood (NEG) Urine Nitrite (NEG) Ur Leukocyte Esterase (NEG) COVID-19 (BETO) (Negative) COVID-19 Clin Com 10/14/20 10/14/20 10/14/20 Range/Units 13:01 13:01 13:01 WBC (4.8-10.8) X10*3/uL RBC (4.60-5.80) X10*6/uL Hgb (14.0-18.0) g/dl Hct (42-52) % MCV (80-98) fL MCH (27.0-33.0) pg MCHC (31.0-36.0) g/dl RDW (11.0-16.0) % Plt Count (160-400) X10*3/uL MPV (9.4-12.4) fL Immature Gran % (Auto) (0.0-0.4) % Neut % (Auto) (45-73) % Lymph % (Auto) (20-40) % [place] % (Auto) (2-11) % Eos % (Auto) (0-4) % Baso % (Auto) (0-2) % Lymph # (Auto) (1.2-4.9) X10*3/uL [place] # (Auto) (0.1-1.2) X10*3/uL Eos # (Auto) (0.0-0.4) X10*3/uL Baso # (Auto) (0.0-0.2) X10*3/uL Abs Immat Gran (auto) (0.00-0.03) X10*3/uL Absolute Neuts (auto) (2.0-8.3) X10*3/uL Absolute Nucleated RBC (0.0-0.012) X10*3/uL Nucleated RBC % (auto) (0.0-0.2) /100WBC ESR (0-15) MM/HR Sodium (135-145) mmol/L Potassium (3.3-5.1) mmol/L Chloride (96-108) mmol/L Carbon Dioxide (22-29) mmol/L Anion Gap (12-20) BUN (9-16) mg/dL Creatinine (0.5-1.4) mg/dL Estim Creat Clear Calc Estimated GFR Random Glucose (60-115) mg/dL Lactic Acid 0.6 (0.5-2.0) mmol/L Calcium (8.4-10.2) mg/dL Total Bilirubin (0.0-1.0) mg/dL AST (5-37) U/L ALT (0-40) U/L Alkaline Phosphatase (39-117) U/L C-Reactive Protein 0.43 (< or = 0.50) mg/dL Total Protein (6.5-8.0) g/dL Albumin (3.5-5.0) g/dL Urine Color Urine Appearance Urine pH (5.0-8.0) Ur Specific [place] (1.005-1.025) Urine Protein (NEG-TRACE) MG/DL Urine Glucose (UA) (NEG) MG/DL Urine Ketones (NEG) MG/DL Urine Blood (NEG) Urine Nitrite (NEG) Ur Leukocyte Esterase (NEG) COVID-19 (BETO) Negative (Negative) COVID-19 Clin Com See Note 07/27/21 Range/Units 15:10 WBC (4.8-10.8) X10*3/uL RBC (4.60-5.80) X10*6/uL Hgb (14.0-18.0) g/dl Hct (42-52) % MCV (80-98) fL MCH (27.0-33.0) pg MCHC (31.0-36.0) g/dl RDW (11.0-16.0) % Plt Count (160-400) X10*3/uL MPV (9.4-12.4) fL Immature Gran % (Auto) (0.0-0.4) % Neut % (Auto) (45-73) % Lymph % (Auto) (20-40) % [place] % (Auto) (2-11) % Eos % (Auto) (0-4) % Baso % (Auto) (0-2) % Lymph # (Auto) (1.2-4.9) X10*3/uL [place] # (Auto) (0.1-1.2) X10*3/uL Eos # (Auto) (0.0-0.4) X10*3/uL Baso # (Auto) (0.0-0.2) X10*3/uL Abs Immat Gran (auto) (0.00-0.03) X10*3/uL Absolute Neuts (auto) (2.0-8.3) X10*3/uL Absolute Nucleated RBC (0.0-0.012) X10*3/uL Nucleated RBC % (auto) (0.0-0.2) /100WBC ESR (0-15) MM/HR Sodium (135-145) mmol/L Potassium (3.3-5.1) mmol/L Chloride (96-108) mmol/L Carbon Dioxide (22-29) mmol/L Anion Gap (12-20) BUN (9-16) mg/dL Creatinine (0.5-1.4) mg/dL Estim Creat Clear Calc Estimated GFR Random Glucose (60-115) mg/dL Lactic Acid (0.5-2.0) mmol/L Calcium (8.4-10.2) mg/dL Total Bilirubin (0.0-1.0) mg/dL AST (5-37) U/L ALT (0-40) U/L Alkaline Phosphatase (39-117) U/L C-Reactive Protein (< or = 0.50) mg/dL Total Protein (6.5-8.0) g/dL Albumin (3.5-5.0) g/dL Urine Color YELLOW Urine Appearance CLEAR Urine pH 7.0 (5.0-8.0) Ur Specific [place] <= 1.005 (1.005-1.025) Urine Protein NEG (NEG-TRACE) MG/DL Urine Glucose (UA) NEG (NEG) MG/DL Urine Ketones NEG (NEG) MG/DL Urine Blood NEG (NEG) Urine Nitrite NEG (NEG) Ur Leukocyte Esterase NEG (NEG) COVID-19 (BETO) (Negative) COVID-19 Clin Com Discharge Plan Discharge Clinical Impression: Colitis, infectious, Acute dehydration Abdominal pain Qualifiers: Abdominal location: left lower quadrant Qualified Code(s): R10.32 - Left lower quadrant pain Patient Disposition: Home, Self-Care Instructions: Infectious Colitis (ED) Additional Instructions: Your laboratory evaluation was unremarkable, your inflammatory markers were normal which is reassuring. The CT scan of your abdomen pelvis with IV contrast revealed mild colitis of the distal colon. I am going to treat you for an infectious colitis with Flagyl (metronidazole) 500 mg pills, 1 pill 3 times a day for 7 days. Stop taking ibuprofen Take Tylenol (acetaminophen) 500 mg pills, 2 pills every 4 to 6 hours as needed for pain. For pain not relieved by Tylenol take morphine 15 mg pills, 1 pill every 4-6 hours as needed. Morphine is a narcotic medication and can be addicting, if your concerned about addiction do not get this medication filled or you can ask the pharmacist to give you less pills than prescribed. Follow-up with your doctor in 2 days. Please return to the emergency department if your symptoms get worse or if you develop any symptoms that are concerning to you. Prescriptions: New metronidazole [Flagyl] 500 mg tablet 500 mg PO TID 7 Days Qty: 21 RF: 0 morphine 15 mg tablet 15 mg PO Q4-6H PRN (Reason: pain) Qty: 10 RF: 0 No Action doxycycline monohydrate 100 mg capsule 100 mg PO BID Qty: 21 RF: 0 amoxicillin-pot clavulanate [Augmentin] 875-125 mg tablet 1 tab PO Q12H 7 Days Qty: 14 RF: 0 oxycodone 5 mg tablet 5 mg PO Q8H PRN (Reason: pain) Qty: 3 RF: 0 cephalexin 500 mg capsule 500 mg PO QID Qty: 28 RF: 0 doxycycline hyclate 100 mg capsule 100 mg PO BID Qty: 14 RF: 0 Stand Alone Forms: Work/School Release
[2020-10-14] MEDS: 0.9 % Sodium Chloride 1,000 ML 999 ML IV ×2 (13:10)
[2020-10-14] MEDS: Ketorolac Tromethamine 15 MG/ML VIAL 30 MG IVPUSH (13:10)
[2020-10-14 13:21] LABS: COVID-19 Test Negative (Negative)
[2020-10-14 13:27] LABS: Lactic Acid 0.6 mmol/L (0.5-2.0)
[2020-10-14 13:31] LABS: C Reactive Protein 0.43 mg/dL (< or = 0.50)
[2020-10-14] MEDS: iohexoL 350 MG/ML 100 ML INFUS..BTL 85 ML IV (13:39)
[2020-10-14 13:54] LABS: Erythrocyte Sedimentation Rate 18 MM/HR (0-15)
[2020-10-14 14:56] VITALS: BP 135/89; PULSE 68; RESP 15; TEMP 37; O2SAT 97
[2020-10-14 15:22] LABS: Glucose Urine UA NEG (NEG); Leukocyte Esterase Urine NEG (NEG); Nitrite Urine NEG (NEG); Specific Gravity - Urine <= 1.005 (1.005-1.025); Urine Blood NEG (NEG); Urine Ketones NEG (NEG); Urine Protein NEG (NEG-TRACE)
[2020-10-14 15:23] LABS: Appearance Urine CLEAR; Color Urine YELLOW
[2020-10-14 16:20] VITALS: BP 138/79; PULSE 60; RESP 16; O2SAT 99
== END 2020-10-14 17:11 | disposition home or self-care (01) ==
PROVIDERS: Emergency Provider Emergency Medicine Emergency Medical Services
DX: A09 Infectious gastroenteritis and colitis, unspecified (principal); E86.0 Dehydration; R10.32 Left lower quadrant pain; Z20.822 Contact with and (suspected) exposure to COVID-19; R53.1 Weakness; F17.210 Nicotine dependence, cigarettes, uncomplicated
CPT/HCPCS: 36415; 74177; 80053; 81003; 83605; 85025; 85652; 86140; 87635; 93005; 96361; 96374; 96375; 99285; J1885; J2405; Q9967

== ENCOUNTER 2020-12-30 16:33 | Emergency (ER) | payer OTHER, SELFPAY ==
--- NOTE | ~2020-12-30 | XR_ITS ---
EXAMINATION: XR RIBS, LEFT CLINICAL INFORMATION: Left-sided chest pain. Trauma. COMPARISON: None TECHNIQUE: Frontal view of chest. 3 views of the left ribs were obtained. The was a BB placed in area of pain. This is at the lower left ribs. FINDINGS: No acute abnormality of the chest. Lungs are clear. No consolidation, pneumothorax, or pleural effusion. The cardiomediastinal silhouette and pulmonary vasculature are normal. Osseous structures are unremarkable. Ribs are intact. No fractures are identified. XR/XR ribs LT min 3V w CXR1V IMPRESSION: Unremarkable examination.
[2020-12-30 16:55] VITALS: BP 143/99; PULSE 80; RESP 18; TEMP 36.6; O2SAT 97; BMI 30.4
--- NOTE | 2020-12-30 17:40 | ED.ANIMALBIT ---
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 He states it was a large Nepali Tucker, that came out of nowhere, was jumping on him, and suddenly bit him and scratched him to his left anterior chest. The dog bit him through his work vest, and shirt. 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 He states he is having some pain over the affected area. He states he did not fall. He clean the area after this happen with soap and water, and applied a bandage to the area. He denies chest pain, shortness of breath, fall, loss of consciousness, fevers, chills, nausea, vomiting. MD complaint: animal bite Onset (ago): hour(s) (3) Animal: dog Description of animal: unknown animal Mechanism: bite and scratch Location: other (left sided thorax ) Pain description: burning Severity scale (1-10): 2 Context: unprovoked Associated symptoms: none Treatments prior to arrival: wound dressing(s) and irrigation Related Data Home Medications Medication Instructions Recorded Confirmed ibuprofen 800 mg tablet 800 mg PO TID 01/31/20 Previous Rx's Medication Instructions Recorded doxycycline monohydrate 100 mg 100 mg PO BID #21 cap 04/11/20 capsule amoxicillin 875 mg-potassium 1 tab PO Q12H 7 Days #14 tab 06/02/20 clavulanate 125 mg tablet (Augmentin) oxycodone 5 mg tablet 5 mg PO Q8H PRN #3 tab 06/02/20 cephalexin 500 mg capsule 500 mg PO QID #28 cap 06/18/20 doxycycline hyclate 100 mg capsule 100 mg PO BID #14 cap 06/18/20 metronidazole 500 mg tablet 500 mg PO TID 7 Days #21 tab 10/14/20 (Flagyl) morphine 15 mg immediate release 15 mg PO Q4-6H PRN #10 tab 10/14/20 tablet Allergies Allergy/AdvReac Type Severity Reaction Status Date / Time No Known Allergies Allergy Verified 10/14/20 10:58 [No Known Allergies*] Review of Systems Review of Systems: Constitutional : No Weight loss, No Fever, No Chills, No Night Sweats, No Fatigue, No Malaise Eyes: No Eye Pain, No Swelling, No Redness, No Foreign Body, No Discharge, No Vision Changes Cardiovascular : No Chest Pain, No SOB, No Dyspnea on Exertion, No Orthopnea, No Edema, No Palpitations Respiratory : No Cough, No Sputum, No Wheezing, No Smoke Exposure, No Dyspnea Gastrointestinal : No Nausea, No Vomiting, No Diarrhea, No Constipation, No abdominal Pain Genitourinary : no irregular bleeding Musculoskeletal : No joint pain, No Myalgias, No Joint Swelling Skin : + dog bite/scratch to left thorax , No rash Neuro : No Weakness, No Numbness, No Paresthesias, No Loss of Consciousness, No Dizziness, No Headache Neurologic: Reports Abnormal speech present [facility] Past Medical History Attestation statement: The following information was validated with the patient. Source: old records reviewed and nursing notes reviewed Medical History Pulmonary embolism Surgical History History of appendectomy Social History Social History Alcohol intake: current Alcohol intake frequency: holidays/special occasions only Alcohol type: beer and hard liquor Patient Tobacco Use Status: Current everyday Tobacco user Advance Directives: No Advance Directives Information Provided: No Physical Exam Vital Signs: Vital Signs: Last Vital Signs Temp 97.9 F 12/30/20 16:55 Pulse 80 12/30/20 16:55 Resp 18 12/30/20 16:55 BP 143/99 H 12/30/20 16:55 Pulse Ox 97 12/30/20 16:55 Body Mass Index 30.4 Const: General: cooperative Nutritional Appearance: average body habitus Orientation/consciousness: oriented to person, oriented to place and oriented to time Limitations: no limitations HENMT: Head: Yes normal to inspection Mouth: Normal oral and palatal mucosa present Eyes: General: appearance normal, both eyes and all related structures Pupils: Equal, round and reactive pupils present EOM: EOMs intact bilaterally Neck: Neck: Yes normal visual inspection and Yes full ROM Thyroid: Thyroid normal Lymphatic: no lymphadenopathy noted Resp: Effort & Inspection: normal respiratory effort and able to speak in complete sentences Auscultation: clear to auscultation bilaterally Cardio: Palpation: normal PMI Rate: regular rate Rhythm: regular rhythm and abnormal rhythm Heart sounds: S1 normal heart sound present and S2 normal heart sound present GI: Inspection: Yes normal to inspection Palpation (GI): Soft to palpation and nontender : General: Yes no CVA tenderness Back/Spine/Pelvis: Back: no CVA tenderness Skin: Other: Small abrasion noted to the left anterior thorax, it appears to be a scratch, however patient states he thinks that this is a bite. No puncture wounds noted. No overlying erythema, or calor to the area. Neuro: General: oriented to person, oriented to place and oriented to time Cranial nerves: Yes CN's II-XII intact bilaterally and Yes Equal, round and reactive pupils present Cognition (Neuro): normal cognition Speech: Abnormal speech present Gait exam (Neuro): Normal gait present Motor exam (neuro): 5/5 motor strength present throughout Sensory Exam: Normal double simultaneous stimulation for sensation Extrem: General: Yes normal to inspection, Yes full ROM and Yes no pedal edema Shoulder/upper arm images: 1. Small abrasion noted. Pain to palpation over the area. Psych: Mental Status: mental status grossly normal Course Course Course Narrative: Patient states that [place] police and Animal Control verified that the dog was in fact fully vaccinated. No need for rabies series at this time. MDM - Animal Bite MDM Narrative Medical decision making narrative: Based off patient history, and physical exam decided to order left-sided rib x-ray, to rule out fractures. However, unlikely Patients BP was high on arrival, however he states he had 2 monsters before coming in. Dog was vaccinated no need for rabies series He will be d/c home on amoxicillin clavulanic acid. There is no need to give him a tetanus shot today, he states he is up-to-date. Patient should return to the emergency department with new or worsening symptoms. He has been educated on warning signs of infection such as redness of the area, warmth, fevers, chills, and has been told to return if any of the symptoms arise. Critical Care Time Critical Care Time Critical Care Time: No Discharge Plan Discharge Clinical Impression: Bite by animal, Work related injury Dog bite Qualifiers: Encounter type: initial encounter Qualified Code(s): W54.0XXA - Bitten by dog, initial encounter Patient Disposition: Home, Self-Care Instructions: Animal Bite (ED) Additional Instructions: Contact animal control to find out vaccination status of the dog. You have 72 hours Clean the area with soap and water. Return to emergency department with new or worsening symptoms. Or if the area becomes warm, swollen, or appears infected or if you develop chills or fevers Prescriptions: No Action metronidazole [Flagyl] 500 mg tablet 500 mg PO TID 7 Days Qty: 21 RF: 0 morphine 15 mg tablet 15 mg PO Q4-6H PRN (Reason: pain) Qty: 10 RF: 0 doxycycline monohydrate 100 mg capsule 100 mg PO BID Qty: 21 RF: 0 amoxicillin-pot clavulanate [Augmentin] 875-125 mg tablet 1 tab PO Q12H 7 Days Qty: 14 RF: 0 oxycodone 5 mg tablet 5 mg PO Q8H PRN (Reason: pain) Qty: 3 RF: 0 cephalexin 500 mg capsule 500 mg PO QID Qty: 28 RF: 0 doxycycline hyclate 100 mg capsule 100 mg PO BID Qty: 14 RF: 0
== END 2020-12-30 19:54 | disposition home or self-care (01) ==
PROVIDERS: Emergency Provider Internal Medicine
DX: S21.252A Open bite of left back wall of thorax without penetration into thoracic cavity, initial encounter (principal); M54.6 Pain in thoracic spine; R07.81 Pleurodynia; W54.0XXA Bitten by dog, initial encounter; Y93.9 Activity, unspecified; Y92.410 Unspecified street and highway as the place of occurrence of the external cause; Y99.0 Civilian activity done for income or pay; Z79.899 Other long term (current) drug therapy
CPT/HCPCS: 71101; 99283

== ENCOUNTER 2021-03-23 11:27 | Outpatient (REF) | payer SELFPAY ==
[2021-03-23 12:55] LABS: Binax Internal Control QC Valid; Binax Lot number: 9864; Binax Now Covid-19 Ag Negative (Negative)
== END 2021-03-23 11:28 | disposition home or self-care (01) ==
LOC: HO.LAB 11:27
PROVIDERS: Visit Provider Internal Medicine
DX: Z20.822 Contact with and (suspected) exposure to COVID-19 (principal)
CPT/HCPCS: 36415; C9803

== ENCOUNTER 2021-04-13 09:36 | Emergency (ER) | payer OTHER, SELFPAY ==
--- NOTE | ~2021-04-13 | XR_ITS ---
EXAMINATION: XR CERVICAL SPINE CLINICAL INFORMATION: Left-sided radicular pain down the arm COMPARISON: None TECHNIQUE: 4 views of the cervical spine including swimmer's view were obtained. FINDINGS: Bone alignment is normal. No fracture or dislocation is seen. Disc spaces are normal. Prevertebral soft tissues are normal. XR/XR cervical spine 3V IMPRESSION: Unremarkable examination.
--- NOTE | 2021-04-13 09:50 | ECG_ITS ---
Test Reason : L ARM PAIN Blood Pressure : / mmHG Vent. Rate : 077 BPM Atrial Rate : 077 BPM P-R Int : 170 ms QRS Dur : 082 ms QT Int : 348 ms P-R-T Axes : 033 028 060 degrees QTc Int : 393 ms Normal sinus rhythm Normal ECG When compared with ECG of 14-OCT-2020 11:24, No significant change was found Referred By: Generic ED Physician Electronically Signed By:HEMALATHA BRUNSON MD
[2021-04-13 09:51] VITALS: BP 149/96; PULSE 86; RESP 17; TEMP 36.5; O2SAT 98; BMI 29.5
--- NOTE | 2021-04-13 10:46 | ED.CHESTPAIN ---
HPI - Chest Pain General Chief Complaint: Chest Pain Stated Complaint: chest pain/l arm pain Time Seen by Provider: 04/13/21 10:46 Source: patient Mode of arrival: ambulatory Limitations: no limitations History of Present Illness HPI narrative: patient with numbness to 4th and 5th digits, radiating up neck and now into his chest. He is not currently having chest pain. this is mostly pain to his 4th and 5th digit with pain in his arm. Onset (ago): week(s) Onset: during rest Pain radiation: left arm Severity: mild Related Data Home Medications Medication Instructions Recorded Confirmed ibuprofen 800 mg tablet 800 mg PO TID 01/31/20 Previous Rx's Medication Instructions Recorded doxycycline monohydrate 100 mg 100 mg PO BID #21 cap 04/11/20 capsule amoxicillin 875 mg-potassium 1 tab PO Q12H 7 Days #14 tab 06/02/20 clavulanate 125 mg tablet (Augmentin) oxycodone 5 mg tablet 5 mg PO Q8H PRN #3 tab 06/02/20 cephalexin 500 mg capsule 500 mg PO QID #28 cap 06/18/20 doxycycline hyclate 100 mg capsule 100 mg PO BID #14 cap 06/18/20 metronidazole 500 mg tablet 500 mg PO TID 7 Days #21 tab 10/14/20 (Flagyl) morphine 15 mg immediate release 15 mg PO Q4-6H PRN #10 tab 10/14/20 tablet amoxicillin 875 mg-potassium 1 tab PO BID 10 Days #20 tab 12/30/20 clavulanate 125 mg tablet (Augmentin) naproxen 500 mg tablet (Naprosyn) 500 mg PO BID #20 tab 04/13/21 Allergies Allergy/AdvReac Type Severity Reaction Status Date / Time No Known Allergies Allergy Verified 10/14/20 10:58 [No Known Allergies*] Review of Systems Constitutional: Constitutional: Reports no additional constitutional complaints Eyes: Eyes: Reports no additional eye complaints ENT: Denies dizziness Cardiovascular: Cardiovascular: Reports no additional cardiovascular complaints Respiratory: Respiratory: Reports as per HPI Gastrointestinal: Gastrointestinal: Reports no additional gastrointestinal complaints Musculoskeletal: Musculoskeletal: Reports no additional musculoskeletal complaints Integumentary/Breasts: Skin/Breast: Denies rash Neurologic: Reports system reviewed and no additional complaints, except as documented, Denies dizziness and Denies Sensory deficit (Neuro) Psychiatric: Psychiatric: Denies anxiety PMFSH Past Medical History Medical History Pulmonary embolism Surgical History History of appendectomy Social History Social History Alcohol intake: current Alcohol intake frequency: holidays/special occasions only Alcohol type: beer and hard liquor Patient Tobacco Use Status: Current everyday Tobacco user Use of substances other than those prescribed or required for medical reasons: Yes Substance Use Type: Marijuana Substance Use Frequency: Occasionally Advance Directives: No Advance Directives Information Provided: No Physical Exam Vital Signs: Vital Signs: Last Vital Signs Temp 98.5 F 04/13/21 10:48 Pulse 75 04/13/21 10:48 Resp 18 04/13/21 10:48 BP 142/91 H 04/13/21 10:48 Pulse Ox 97 04/13/21 10:48 BMI result Body Mass Index 29.5 Const: General: healthy appearing Nutritional Appearance: average body habitus Orientation/consciousness: oriented to person and patient oriented x3 Limitations: no limitations HENMT: Head: Yes normal to inspection Ears: external ears normal General nose exam: Normal external nose present Mouth: Normal oral and palatal mucosa present and oropharynx normal Throat: Yes posterior oropharynx normal Eyes: General: appearance normal, both eyes and all related structures Neck: Other: supple Neck: Yes normal visual inspection Chest: Chest palpation & inspection: normal inspection of the chest Resp: Auscultation: clear to auscultation bilaterally Cardio: Jugular venous distension: no JVD Rate: regular rate Rhythm: regular rhythm Heart sounds: S1 normal heart sound present and S2 normal heart sound present GI: Inspection: Yes normal to inspection Palpation (GI): Soft to palpation, nontender and No hepatosplenomegaly present Auscultation: normal bowel sounds : General: Yes no CVA tenderness Back/Spine/Pelvis: Back: no CVA tenderness Skin: General skin exam: no rashes or lesions noted Neuro: General: oriented to person and patient oriented x3 Cranial nerves: Yes CN's II-XII intact bilaterally Motor exam (neuro): 5/5 motor strength present throughout Sensory Exam: No Sensory deficit (Neuro) Extrem: Other: left hand with good radial pulse and neurologically intact General: Yes normal to inspection Psych: Appearance: grossly normal Course Reevaluation(s) Reevaluation #1: By description and physical I believe this is most consistent with ulnar nerve impingement will refer to hand surgeon Time: 11:53 MDM - Chest Pain ECG Data ECG #1: Attestation: I personally reviewed and interpreted this ECG as follows: Interpretation: normal sinus rate of 77, no st or twave changes Discharge Plan Discharge Clinical Impression: Impingement of left ulnar nerve Patient Disposition: Home, Self-Care Instructions: Cubital Tunnel Syndrome (ED) Prescriptions: New naproxen [Naprosyn] 500 mg tablet 500 mg PO BID Qty: 20 RF: 0 No Action metronidazole [Flagyl] 500 mg tablet 500 mg PO TID 7 Days Qty: 21 RF: 0 morphine 15 mg tablet 15 mg PO Q4-6H PRN (Reason: pain) Qty: 10 RF: 0 doxycycline monohydrate 100 mg capsule 100 mg PO BID Qty: 21 RF: 0 amoxicillin-pot clavulanate [Augmentin] 875-125 mg tablet 1 tab PO Q12H 7 Days Qty: 14 RF: 0 oxycodone 5 mg tablet 5 mg PO Q8H PRN (Reason: pain) Qty: 3 RF: 0 cephalexin 500 mg capsule 500 mg PO QID Qty: 28 RF: 0 doxycycline hyclate 100 mg capsule 100 mg PO BID Qty: 14 RF: 0 amoxicillin-pot clavulanate [Augmentin] 875-125 mg tablet 1 tab PO BID 10 Days Qty: 20 RF: 0 Referrals: Ashtyn Soto MD [Physician] - 1 week
[2021-04-13 10:48] VITALS: BP 142/91; PULSE 75; RESP 18; TEMP 36.9; O2SAT 97
[2021-04-13] MEDS: Ketorolac Tromethamine 60 MG/2 ML VIAL IM (11:10)
--- NOTE | 2021-04-13 11:14 | PC.NURSE ---
pt alert and oriented, skin pwd, respirations even and unlabored,pt states having left sided forearm pain that radiates to his left shoulder and auxiliary area for a couple of weeks after working on his car, pain at 10
== END 2021-04-13 12:14 | disposition home or self-care (01) ==
PROVIDERS: Emergency Provider Emergency Medicine
DX: G56.22 Lesion of ulnar nerve, left upper limb (principal); F17.200 Nicotine dependence, unspecified, uncomplicated; F12.90 Cannabis use, unspecified, uncomplicated
CPT/HCPCS: 72040; 93005; 96372; 99284; J1885

== ENCOUNTER 2021-04-21 11:24 | Emergency (ER) | payer OTHER, SELFPAY ==
--- NOTE | ~2021-04-21 | XR_ITS ---
EXAMINATION: LEFT ANKLE AND LEFT FOOT CLINICAL INFORMATION: Fall. COMPARISON: None TECHNIQUE: Left foot 3 views. Left ankle 2 views. FINDINGS: Left foot: There is no visible acute fracture, dislocation or subluxation seen. The soft tissues are normal. Left ankle: There is no visible acute fracture, dislocation or subluxation. The left ankle mortise and subtalar joints are normal. The soft tissues are normal. XR/XR ankle LT 2V IMPRESSION: Unremarkable left foot and left ankle exam.
--- NOTE | ~2021-04-21 | XR_ITS ---
EXAMINATION: LEFT ANKLE AND LEFT FOOT CLINICAL INFORMATION: Fall. COMPARISON: None TECHNIQUE: Left foot 3 views. Left ankle 2 views. FINDINGS: Left foot: There is no visible acute fracture, dislocation or subluxation seen. The soft tissues are normal. Left ankle: There is no visible acute fracture, dislocation or subluxation. The left ankle mortise and subtalar joints are normal. The soft tissues are normal. XR/XR foot LT 2V IMPRESSION: Unremarkable left foot and left ankle exam.
[2021-04-21 11:29] VITALS: BP 148/95; PULSE 70; RESP 18; TEMP 36.4; O2SAT 99; BMI 28.8
--- NOTE | 2021-04-21 12:06 | ED_ITS ---
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 He denies head injury loss of consciousness. He denies any other injuries complaints or concerns at this time. 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) ([employer]) Type of Injury: blunt (from step of work truck ) Place: work (outdoors) Severity: moderate Exacerbating factors: weight bearing and palpation Context: direct blow Associated symptoms: able to partially bear weight Other symptoms: none Treatments prior to arrival: cold therapy Related Data Home Medications Medication Instructions Recorded Confirmed ibuprofen 800 mg tablet 800 mg PO TID 01/31/20 Previous Rx's Medication Instructions Recorded doxycycline monohydrate 100 mg 100 mg PO BID #21 cap 04/11/20 capsule amoxicillin 875 mg-potassium 1 tab PO Q12H 7 Days #14 tab 06/02/20 clavulanate 125 mg tablet (Augmentin) oxycodone 5 mg tablet 5 mg PO Q8H PRN #3 tab 06/02/20 cephalexin 500 mg capsule 500 mg PO QID #28 cap 06/18/20 doxycycline hyclate 100 mg capsule 100 mg PO BID #14 cap 06/18/20 metronidazole 500 mg tablet 500 mg PO TID 7 Days #21 tab 10/14/20 (Flagyl) morphine 15 mg immediate release 15 mg PO Q4-6H PRN #10 tab 10/14/20 tablet amoxicillin 875 mg-potassium 1 tab PO BID 10 Days #20 tab 12/30/20 clavulanate 125 mg tablet (Augmentin) naproxen 500 mg tablet (Naprosyn) 500 mg PO BID #20 tab 04/13/21 acetaminophen 300 mg-codeine 30 mg 1 tab PO Q8H PRN #14 tab 04/21/21 tablet ibuprofen 800 mg tablet 800 mg PO Q8H PRN #14 tab 04/21/21 Allergies Allergy/AdvReac Type Severity Reaction Status Date / Time No Known Allergies Allergy Verified 04/21/21 11:29 [No Known Allergies*] Review of Systems Verdana 4l Review of Systems: Verdana 4d Verdana 4d Constitutional : No Weight loss, No Fever, No Chills, No Night Sweats, No Fatigue, No Malaise ENT/Mouth : No Hearing loss, No Ear Pain, No Nasal Congestion, No Sinus Pain, No Hoarseness, No sore throat, No Rhinorrhea, No Swallowing DifficultyDifficulty Eyes: No Eye Pain, No Swelling, No Redness, No Foreign Body, No Discharge, No Vision Changes Cardiovascular : No Chest Pain, No SOB, No Dyspnea on Exertion, No Orthopnea, No Edema, No Palpitations Respiratory : No Cough, No Sputum, No Wheezing, No Smoke Exposure, No Dyspnea Gastrointestinal : No Nausea, No Vomiting, No Diarrhea, No Constipation, No abdominal Pain, No Hematochezia, No Melena Genitourinary : no irregular bleeding, No Dysuria, No Urinary Frequency, No Hematuria, No Urinary Incontinence, No Urgency, No Flank Pain, No Urinary Flow Changes, No Hesitancy Musculoskeletal : + joint pain, No Myalgias, No Joint Swelling Skin : No Skin Lesions, No rash Neuro : No Weakness, No Numbness, No Paresthesias, No Loss of Consciousness, No Dizziness, No Headache Psych : No Anxiety/Panic, No Depression, No SI/HI/AH/VH, No Social Issues, Heme/Lymph: No Bruising, No Bleeding,No Lymphadenopathy Endocrine : No Polyuria, No Polydipsia, No Temperature Intolerance Yes all other systems are reviewed and are negative [facility] Past Medical History Attestation statement: The following information was validated with the patient. Medical History Pulmonary embolism Surgical History History of appendectomy Social History Social History Alcohol intake: current Alcohol intake frequency: holidays/special occasions only Alcohol type: beer and hard liquor Patient Tobacco Use Status: Current everyday Tobacco user Substance Use Type: Marijuana Advance Directives: No Advance Directives Information Provided: No Physical Exam Verdana 4l Vital Signs: Verdana 4d Verdana 4d Vital Signs: Verdana 4d Verdana 4Bd Last Vital Signs Verdana 4d Lining Closer New 4d Dandre العراقي 4d Temp 97.6 F 04/21/21 11:29 Lining Closer New 4d Pulse 70 04/21/21 11:29 Dandre New 4d Resp 18 04/21/21 11:29 BP 148/95 H 04/21/21 11:29 Pulse Ox 99 04/21/21 11:29 BMI result Body Mass Index 28.8 vital signs have been reviewed as normal and appeared to be correct. Blood pressure 145/95 Heart rate normal. Respiration rate normal. Temperature normal. Oxygen saturation normal. Appearance: Alert. Oriented X3. No acute distress. Head: Normal external exam. Normocephalic. Atraumatic. Eyes: PERRLA. EOMI. Conjunctiva and sclera normal. Eyelids normal. ENT: Pharynx normal. Uvula midline. Moist mucous membranes. Neck: Normal inspection. Neck supple. FROM. CVS: Normal heart rate and rhythm. Respiratory: No respiratory distress. Painless inspiration. Skin: Skin warm and dry. Normal skin color. Normal skin turgor. No rashes/lesions/lacerations noted. Extremities: Patient with tenderness palpation at the anterior aspect of the left ankle no obvious deformities noted on my exam. No obvious ligamentous or tendon injury noted to the left foot/ankle/lower leg joint. Achilles tendon is intact. Otherwise all other extremities exhibit normal range of motion and nontender. Neuro: Oriented X 3. No motor deficit. No sensory deficit. Reflexes normal. Normal steady gait. No focal neuro deficits noted. Vascular: + radial pulses/+ 2 distal pedal pulses/+2 dorsalis pedis b/l. Normal cap refill. No cyanosis noted to upper extremity nails and lower extremity toes nails. 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 He denies head injury loss of consciousness. He denies any other injuries complaints or concerns at this time. X-ray of right foot/ankle negative for any acute processes. Will DC home with ortho boot and crutches with symptomatic treatment instructions to follow up with [facility] and his primary care provider for physical therapy and to have repeat evaluation and treatment within 1-2 weeks if symptoms persist with pain to the right foot/ankle joint. Patient understands agrees with this plan. MDM - Extremity Injury (Lower) Medical Records Attestation: I reviewed the patient's medical records. Imaging Data Left foot/ankle joint x-rays: Attestation: I personally reviewed and interpreted this imaging study as follows: Radiologist's impression: FINDINGS: Left foot: There is no visible acute fracture, dislocation or subluxation seen. The soft tissues are normal. Left ankle: There is no visible acute fracture, dislocation or subluxation. The left ankle mortise and subtalar joints are normal. The soft tissues are normal. XR/XR ankle LT 2V IMPRESSION: Unremarkable left foot and left ankle exam.? Procedures Orthopedic Splinting/Casting Injury #1: Side: left Lower Extremity Injury Location: lower leg, ankle and foot Lower Extremity Immobilizer: boot orthosis Other Orthopedic Equipment: crutches Discharge Plan Discharge Clinical Impression: Ankle sprain and strain, Fall, Work related injury, Sprain of left foot Patient Disposition: Home, Self-Care Instructions: Ankle Sprain (DC), Return to Work Instructions (ED) Prescriptions: New ibuprofen 800 mg tablet 800 mg PO Q8H PRN (Reason: pain) Qty: 14 0RF acetaminophen-codeine 300-30 mg tablet 1 tab PO Q8H PRN (Reason: pain) Qty: 14 0RF No Action metronidazole [Flagyl] 500 mg tablet 500 mg PO TID 7 Days Qty: 21 0RF morphine 15 mg tablet 15 mg PO Q4-6H PRN (Reason: pain) Qty: 10 0RF Rx Instructions: The patient may ask for partial fill doxycycline monohydrate 100 mg capsule 100 mg PO BID Qty: 21 0RF amoxicillin-pot clavulanate [Augmentin] 875-125 mg tablet 1 tab PO Q12H 7 Days Qty: 14 0RF oxycodone 5 mg tablet 5 mg PO Q8H PRN (Reason: pain) Qty: 3 0RF cephalexin 500 mg capsule 500 mg PO QID Qty: 28 0RF doxycycline hyclate 100 mg capsule 100 mg PO BID Qty: 14 0RF amoxicillin-pot clavulanate [Augmentin] 875-125 mg tablet 1 tab PO BID 10 Days Qty: 20 0RF naproxen [Naprosyn] 500 mg tablet 500 mg PO BID Qty: 20 0RF Referrals: [facility] [Provider Group] - 2 days Austyn Ornelas MD [Physician] - 1 week Stand Alone Forms: Work/School Release Discharge Date/Time: 04/21/21 12:28 Print Language: Irish
== END 2021-04-21 12:28 | disposition home or self-care (01) ==
PROVIDERS: Emergency Provider Emergency Medicine Emergency Medical Services
DX: S93.402A Sprain of unspecified ligament of left ankle, initial encounter (principal); S96.912A Strain of unspecified muscle and tendon at ankle and foot level, left foot, initial encounter; S93.602A Unspecified sprain of left foot, initial encounter; V58.4XXA Person boarding or alighting a pick-up truck or van injured in noncollision transport accident, initial encounter; Y93.89 Activity, other specified; Y92.414 Local residential or business street as the place of occurrence of the external cause; Y99.0 Civilian activity done for income or pay
CPT/HCPCS: 73600; 73620; 99281; 99283

== ENCOUNTER 2021-04-28 15:07 | Emergency (ER) | payer OTHER, SELFPAY ==
--- NOTE | ~2021-04-28 | CT_ITS ---
EXAMINATION: CT ANGIOGRAM HEAD CT ANGIOGRAM NECK CLINICAL INFORMATION: Left arm weakness. COMPARISON: Report sent brain MRI and CTA head and neck from 03/25/2013. Images not available at this time. TECHNIQUE: Initial noncontrast harp repairer imaging of the head and neck was performed. Noncontrast head CT was also performed. Test bolus sequences followed by intravenous administration 70 mL of Omnipaque 350. Helical imaging was performed in the axial plane from the aortic arch to the skull vertex. Delayed postcontrast imaging of the head was also performed. The data was processed at the cardiology technologist's workstation for generation of MIP sequences. Angled MIPs and volume rendered reformatted images were also generated at an offline 3D workstation. Stenoses are assessed in accordance with NASCET criteria unless otherwise indicated. This CT examination was performed using dose optimization techniques as appropriate, variously including the following: *Automated exposure control. *Adjustment of mA and/or kV according to patient size (this includes techniques or standardized protocols for targeted exams where dose is matched to indication/reason for exam; i.e. extremities or head). *Use of iterative reconstruction technique. DLP: 2435 mGy-cm FINDINGS: CT Head: Multiple regions of age-indeterminate loss of webster-white matter differentiation scattered throughout the right MCA territory, including the right frontal lobe, posterior right insula, and superior aspect of the right temporal lobe. Some of these regions of encephalomalacia appear to demonstrate a degree of volume loss suggesting chronicity. However, other regions appear edematous suggesting an acute to subacute process. No evidence of acute intracranial hemorrhage. No additional loss of webster-white matter differentiation. The ventricles are normal in size and configuration. No evidence for obstructive hydrocephalus. No abnormal mass effect or midline shift. No extra-axial fluid collections. No pathologic intra-axial enhancement. No acute soft tissue or osseous abnormalities. Moderate mucosal thickening of the paranasal sinuses. The mastoid air cells and middle ear cavities are clear. Moderate multifocal odontogenic enamel erosions. CT Neck: The thyroid gland and remaining cervical soft tissues are within normal limits. No significant abnormalities of the cervical spine. CT Upper Chest: Subtle mosaic attenuation of the visualized upper lungs. Otherwise, the visualized lung apices and upper mediastinum are within normal limits. Neck CTA: Aortic Arch: Normal contour and caliber. Classic 3 vessel branching pattern of the aortic arch. Great Vessel Origins: No significant stenosis of the branch origins. Right Common Carotid Artery: No focal stenosis or occlusion. Cervical Right Internal Carotid Artery: There is occlusion of the proximal right internal carotid artery approximately 0.5 cm from its origin. Left Common Carotid Artery: No focal stenosis or occlusion. Cervical Left Internal Carotid Artery: Normal opacification without focal stenosis or occlusion. Cervical Right Vertebral Artery: Co-dominant. No focal stenosis or occlusion. Cervical Left Vertebral Artery: Co-dominant. No focal stenosis or occlusion. Brain CTA: Intracranial Internal Carotid Arteries: Normal opacification of the intracranial segments of the left internal carotid artery. The petrous and cavernous segments of the right ICA remain nonopacified. There is partial reconstitution of the paraophthalmic and supraclinoid segments of the right ICA. Normal opacification of the ophthalmic arteries bilaterally. Right Anterior Cerebral Artery: Normal A1 segment. Normal opacification of the distal HUEY segments. Left Anterior Cerebral Artery: Normal A1 segment. Normal opacification of the distal HUEY segments. Anterior Communicating Artery: Normal. Right Middle Cerebral Artery: Normal M1 segment of the MCA without focal stenosis or occlusion. Scattered mild narrowings of the M2 and distal branches of the right MCA without proximal occlusion. Left Middle Cerebral Artery: Normal M1 segment of the MCA without focal stenosis or occlusion. Normal arborization of the distal segments. Right Vertebral Artery: Normal V4 segment. Normal opacification of the proximal segments of the posterior inferior cerebellar artery. Left Vertebral Artery: Normal V4 segment. Normal opacification of the proximal segments of the posterior inferior cerebellar artery. Basilar Artery: Normal without focal stenosis or occlusion. Normal appearance of the proximal superior cerebellar arteries. Right Posterior Cerebral Artery: Normal P1 segment. Normal opacification of the distal HIGHWAY TECHNICIAN segments. Left Posterior Cerebral Artery: Normal P1 segment. Normal opacification of the distal [facility]IGHWAY TECHNICIAN segments. Normal opacification of the superior sagittal, straight, transverse, and sigmoid sinuses. CT/CT angio head neck IMPRESSION: 1. Proximal occlusion of the right ICA. Partial intracranial reconstitution of the right ICA. The M1 segment of the right MCA opacifies normally. Scattered mild narrowings of the distal branches without evidence of proximal occlusion of the right MCA. 2. Associated multifocal infarcts throughout the right MCA territory including the right frontal lobe, temporal lobe, and insula. These infarcts appear multi-aged in nature (some appearing acute or subacute). 3. No evidence of acute intracranial hemorrhage. 4. Moderate multifocal odontogenic disease. This critical result was discussed with Dr. Persaud at 19:46 on 04/28/2021 and it was ascertained that the content and urgency of the report was understood at the time of direct communication.
[2021-04-28 15:50] VITALS: BP 149/68; PULSE 73; RESP 18; TEMP 37.1; O2SAT 98; BMI 30.4
--- NOTE | 2021-04-28 17:13 | ECG_ITS ---
Test Reason : ?STROKE Blood Pressure : / mmHG Vent. Rate : 056 BPM Atrial Rate : 056 BPM P-R Int : 172 ms QRS Dur : 086 ms QT Int : 402 ms P-R-T Axes : 026 031 052 degrees QTc Int : 387 ms Sinus bradycardia Otherwise normal ECG When compared with ECG of 13-APR-2021 09:52, No significant change was found Referred By: Amarjit Mayo Electronically Signed By:Raz Zepeda
--- NOTE | 2021-04-28 17:23 | ED_ITS ---
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 and unable to lift his left hand no worsening of paresthesia no significant neck pain patient slept well does not remember any injury to the armpit no neck pain no headache no other weakness No use of cocaine use marijuana sometimes patient's aunt had a history of MS Related Data Home Medications Medication Instructions Recorded Confirmed ibuprofen 800 mg tablet 800 mg PO TID 01/31/20 Previous Rx's Medication Instructions Recorded doxycycline monohydrate 100 mg 100 mg PO BID #21 cap 04/11/20 capsule amoxicillin 875 mg-potassium 1 tab PO Q12H 7 Days #14 tab 06/02/20 clavulanate 125 mg tablet (Augmentin) oxycodone 5 mg tablet 5 mg PO Q8H PRN #3 tab 06/02/20 cephalexin 500 mg capsule 500 mg PO QID #28 cap 06/18/20 doxycycline hyclate 100 mg capsule 100 mg PO BID #14 cap 06/18/20 metronidazole 500 mg tablet 500 mg PO TID 7 Days #21 tab 10/14/20 (Flagyl) morphine 15 mg immediate release 15 mg PO Q4-6H PRN #10 tab 10/14/20 tablet amoxicillin 875 mg-potassium 1 tab PO BID 10 Days #20 tab 12/30/20 clavulanate 125 mg tablet (Augmentin) naproxen 500 mg tablet (Naprosyn) 500 mg PO BID #20 tab 04/13/21 acetaminophen 300 mg-codeine 30 mg 1 tab PO Q8H PRN #14 tab 04/21/21 tablet ibuprofen 800 mg tablet 800 mg PO Q8H PRN #14 tab 04/21/21 aspirin 325 mg tablet 325 mg PO DAILY #30 tab 04/28/21 Allergies Allergy/AdvReac Type Severity Reaction Status Date / Time No Known Allergies Allergy Verified 04/28/21 15:50 [No Known Allergies*] Review of Systems Review of Systems: Yes all other systems are reviewed and are negative [facility] Past Medical History Medical History Pulmonary embolism Surgical History History of appendectomy Social History Social History Alcohol intake: current Alcohol intake frequency: holidays/special occasions only Alcohol type: beer and hard liquor Patient Tobacco Use Status: Current everyday Tobacco user Substance Use Type: Marijuana Advance Directives: No Advance Directives Information Provided: Yes Physical Exam Vital Signs: Vital Signs: Last Vital Signs Temp 97.6 F 04/28/21 18:40 Pulse 65 04/28/21 18:40 Resp 14 04/28/21 18:40 BP 146/94 H 04/28/21 18:40 Pulse Ox 99 04/28/21 18:40 BMI result Body Mass Index 30.4 Appearance: Alert. Oriented X3. No acute distress. Eyes: PERRLA, No Nystagmus ENT: Pharynx normal. Oral Mucosa moist Neck: Normal inspection. Neck supple. CVS: Normal heart rate and rhythm. Pulses normal. Respiratory: No respiratory distress. Equal air entry bilateral, no wheezing/rales/rhonchi Abdomen: Soft and nontender. Bowel sounds are present, no mass palpable, no CVA tenderness Skin: Skin warm and dry. Normal skin color. Normal skin turgor. Extremities: No lower extremity edema. No calf tenderness Neuro: Oriented X 3. Left arm with increased weakness of the hand muscles including extensors and weak abduction and adduction strength 3/5 DTR normal sensation intact vascular intact No cerebellar signs , cranial nerves II-XII intact MDM - Neuro Symptoms/Deficit MDM Narrative Medical decision making narrative: Patient with acute CVA onset on 36 hrs ago beyond the window for tPA. CTA head showed right ICA and right MCA blockade case discussed with Dr. Man advised admission and aspirin for now. Patient refused to stay in the hospital as he has for years old son and he has to take care of him tonight he will come back tomorrow morning for admission patient signed against medical advise patient jackie was with him Lab Data Attestation: I reviewed the patient's lab results. Result diagrams: 04/28/21 17:22 04/28/21 17:22 Labs: Lab Results 04/28/21 04/28/21 04/28/21 Range/Units 17:22 17:22 17:22 WBC 10.0 (4.8-10.8) X10*3/uL RBC 5.12 (4.60-5.80) X10*6/uL Hgb 14.9 (14.0-18.0) g/dl Hct 43.9 (42.0-52.0) % MCV 85.7 (80.0-98.0) fL MCH 29.1 (27.0-33.0) pg MCHC 33.9 (31.0-36.0) g/dl RDW 12.0 (11.0-16.0) % Plt Count 269 (160-400) X10*3/uL MPV 9.3 L (9.4-12.4) fL Immature Gran % (Auto) 0.3 (0.0-0.4) % Neut % (Auto) 58.6 (45-73) % Lymph % (Auto) 27.5 (20-40) % [place] % (Auto) 9.3 (2-11) % Eos % (Auto) 3.7 (0-4) % Baso % (Auto) 0.6 (0-2) % Lymph # (Auto) 2.8 (1.2-4.9) X10*3/uL [place] # (Auto) 0.9 (0.1-1.2) X10*3/uL Eos # (Auto) 0.4 (0.0-0.4) X10*3/uL Baso # (Auto) 0.1 (0.0-0.2) X10*3/uL Abs Immat Gran (auto) 0.03 (0.00-0.03) X10*3/uL Absolute Neuts (auto) 5.9 (2.0-8.3) x10*3/uL Absolute Nucleated RBC 0.000 (0.0-0.012) X10*3/uL Nucleated RBC % (auto) 0.0 (0.0-0.2) /100WBC ESR 22 H (0-15) MM/HR PT (9.9-13.0) SEC INR (0.9-1.1) APTT (24.1-38.0) SEC Sodium 141 (135-145) mmol/L Potassium 4.1 (3.3-5.1) mmol/L Chloride 105 (96-108) mmol/L Carbon Dioxide 26 (22-29) mmol/L Anion Gap 14 (12-20) BUN 7 L (9-16) mg/dL Creatinine 1.03 (0.5-1.4) mg/dL Estim Creat Clear Calc 108.4 Estimated GFR > 60 Random Glucose 92 (60-115) mg/dL Calcium 9.4 (8.4-10.2) mg/dL 04/28/21 Range/Units 17:22 WBC (4.8-10.8) X10*3/uL RBC (4.60-5.80) X10*6/uL Hgb (14.0-18.0) g/dl Hct (42.0-52.0) % MCV (80.0-98.0) fL MCH (27.0-33.0) pg MCHC (31.0-36.0) g/dl RDW (11.0-16.0) % Plt Count (160-400) X10*3/uL MPV (9.4-12.4) fL Immature Gran % (Auto) (0.0-0.4) % Neut % (Auto) (45-73) % Lymph % (Auto) (20-40) % [place] % (Auto) (2-11) % Eos % (Auto) (0-4) % Baso % (Auto) (0-2) % Lymph # (Auto) (1.2-4.9) X10*3/uL [place] # (Auto) (0.1-1.2) X10*3/uL Eos # (Auto) (0.0-0.4) X10*3/uL Baso # (Auto) (0.0-0.2) X10*3/uL Abs Immat Gran (auto) (0.00-0.03) X10*3/uL Absolute Neuts (auto) (2.0-8.3) x10*3/uL Absolute Nucleated RBC (0.0-0.012) X10*3/uL Nucleated RBC % (auto) (0.0-0.2) /100WBC ESR (0-15) MM/HR PT 10.9 (9.9-13.0) SEC INR 1.0 (0.9-1.1) APTT 36.1 (24.1-38.0) SEC Sodium (135-145) mmol/L Potassium (3.3-5.1) mmol/L Chloride (96-108) mmol/L Carbon Dioxide (22-29) mmol/L Anion Gap (12-20) BUN (9-16) mg/dL Creatinine (0.5-1.4) mg/dL Estim Creat Clear Calc Estimated GFR Random Glucose (60-115) mg/dL Calcium (8.4-10.2) mg/dL ECG Data Attestation: I personally reviewed and interpreted this ECG as follows: Interpretation: Sinus bradycardia 56 beats per minute normal interval normal axis no acute ST-T no acute ischemic NIH Stroke Scale Internal: Initial- Upon Arrival Level of Consciousness: Alert Level of Consciousness Questions: Answers both questions correctly Level of Consciousness Commands: Performs both tasks correctly Best Gaze: Normal Visual: No visual loss Facial Palsy: Normal Motor Arm (Right): No drift Motor Arm (Left): Drift Motor Leg (Right): No drift Motor Leg (Left): No drift Limb Ataxia: Absent Sensory: Normal Best Language: No aphasia Dysarthia: Normal Extinction and Inattention: No abnormality Score: 1 Discharge Plan Discharge Clinical Impression: Acute cerebrovascular accident (CVA) due to occlusion of right carotid artery Patient Disposition: Left Against Medical Advice Instructions: Ischemic Stroke (DC) Additional Instructions: Take aspirin daily and come back to the any ER manuel for admission for further workup You may get a big stroke and has to be evaluated and taken care of it as soon as possible Prescriptions: New aspirin 325 mg tablet 325 mg PO DAILY Qty: 30 0RF No Action metronidazole [Flagyl] 500 mg tablet 500 mg PO TID 7 Days Qty: 21 0RF morphine 15 mg tablet 15 mg PO Q4-6H PRN (Reason: pain) Qty: 10 0RF Rx Instructions: The patient may ask for partial fill doxycycline monohydrate 100 mg capsule 100 mg PO BID Qty: 21 0RF amoxicillin-pot clavulanate [Augmentin] 875-125 mg tablet 1 tab PO Q12H 7 Days Qty: 14 0RF oxycodone 5 mg tablet 5 mg PO Q8H PRN (Reason: pain) Qty: 3 0RF cephalexin 500 mg capsule 500 mg PO QID Qty: 28 0RF doxycycline hyclate 100 mg capsule 100 mg PO BID Qty: 14 0RF amoxicillin-pot clavulanate [Augmentin] 875-125 mg tablet 1 tab PO BID 10 Days Qty: 20 0RF ibuprofen 800 mg tablet 800 mg PO Q8H PRN (Reason: pain) Qty: 14 0RF acetaminophen-codeine 300-30 mg tablet 1 tab PO Q8H PRN (Reason: pain) Qty: 14 0RF naproxen [Naprosyn] 500 mg tablet 500 mg PO BID Qty: 20 0RF Stand Alone Forms: Against Medical Advice, Work/School Release
[2021-04-28 17:29] LABS: MANUAL DIFF FLAG NO
[2021-04-28 17:33] LABS: Basophils Absolute Auto 0.1 X10*3/uL (0.0-0.2); Basophils Percent Auto 0.6 % (0-2); Eosinophils Absolute Auto 0.4 X10*3/uL (0.0-0.4); Eosinophils Percent Auto 3.7 % (0-4); Hematocrit 43.9 % (42.0-52.0); Hemoglobin 14.9 g/dl (14.0-18.0); Imm Gran Abs Auto 0.03 X10*3/uL (0.00-0.03); Imm Gran Pct Auto 0.3 % (0.0-0.4); Lymphocytes Absolute Auto 2.8 X10*3/uL (1.2-4.9); Lymphocytes Percent Auto 27.5 % (20-40); Mean Corpuscular HGB Conc 33.9 g/dl (31.0-36.0); Mean Corpuscular Hemoglobin 29.1 pg (27.0-33.0); Mean Corpuscular Volume 85.7 fL (80.0-98.0); Mean Platelet Volume 9.3 fL (9.4-12.4); Monocytes Absolute Auto 0.9 X10*3/uL (0.1-1.2); Monocytes Percent Auto 9.3 % (2-11); Neutrophils Absolute Auto 5.9 x10*3/uL (2.0-8.3); Neutrophils Percent Auto 58.6 % (45-73); Platelet Count 269 X10*3/uL (160-400); Red Blood Count 5.12 X10*6/uL (4.60-5.80)
[2021-04-28 17:38] LABS: Prothrombin Time 10.9 SEC (9.9-13.0)
[2021-04-28 17:40] LABS: Partial Thromboplastin Time 36.1 SEC (24.1-38.0)
[2021-04-28 18:05] LABS: Erythrocyte Sedimentation Rate 22 MM/HR (0-15)
[2021-04-28 18:10] LABS: Anion Gap 14 (12-20); Blood Urea Nitrogen 7 mg/dL (9-16); Calcium 9.4 mg/dL (8.4-10.2); Carbon Dioxide 26 mmol/L (22-29); Chloride 105 mmol/L (96-108); Creatinine Clr Calc Pharmacy 108.4; Estimated Glomerular Filt Rate > 60; Glucose Random 92 mg/dL (60-115); Potassium 4.1 mmol/L (3.3-5.1); Sodium 141 mmol/L (135-145)
[2021-04-28 18:40] VITALS: BP 146/94; PULSE 65; RESP 14; TEMP 36.4; O2SAT 99
[2021-04-28] MEDS: iohexoL 350 MG/ML 100 ML INFUS..BTL IV (19:10)
[2021-04-28] MEDS: Aspirin 325 MG TABLET PO (20:16)
--- NOTE | 2021-04-28 20:17 | PC.NURSE ---
DR LEBRON INFORMED PT THAT HE HAS HAD A STROKE IS WAITING TO SPEAK TO THE NEUROLOGIST. PT DOES NOT WANT TO BE ADMITTED BUT WILL WAIT AND SPEAK TO THE DOCTOR.
--- NOTE | 2021-04-28 20:35 | PC.NURSE ---
PT SPOKE WITH DR LEBRON AND HE DOES NOT WANT TO STAY HE WILL SIGN THE AMA FORM AND GO HOME.
--- NOTE | 2021-05-12 16:18 | MHC.STROKE ---
04/28/211999, late entry. Verified with nurse and patient that he passed swallow eval prior to po aspirin.
== END 2021-04-28 21:04 | disposition left against medical advice (07) ==
PROVIDERS: Emergency Provider Internal Medicine; PCP Internal Medicine
DX: I63.231 Cerebral infarction due to unspecified occlusion or stenosis of right carotid arteries (principal); R29.701 NIHSS score 1; F17.200 Nicotine dependence, unspecified, uncomplicated; Z71.6 Tobacco abuse counseling; Z79.899 Other long term (current) drug therapy
CPT/HCPCS: 36415; 70496; 70498; 80048; 85025; 85610; 85652; 85730; 93005; 99284; Q9967

== ENCOUNTER 2021-04-29 09:24 | Inpatient (IN) | payer OTHER, SELFPAY ==
--- NOTE | ~2021-04-29 | MR_ITS ---
EXAMINATION: MR CERVICAL SPINE WITHOUT CONTRAST CLINICAL INFORMATION: Left lower cervical radiculopathy. COMPARISON: Cervical spine radiographs from 04/13/2021. TECHNIQUE: MRI of the cervical spine was obtained using routine sequences without contrast. FINDINGS: Moderately motion degraded exam. Normal anatomic alignment. Normal, homogeneous marrow signal throughout. The vertebral body heights are maintained. Mild degenerative disc disease at C5-C6 and C6-C7 with partial loss of disc height and desiccation. The remaining intervertebral discs are of normal height and signal. No evidence of acute or chronic injury of the anterior longitudinal ligament, posterior longitudinal ligament, or the ligamentum flavum complex. No epidural collection. No demonstrated spinal cord signal abnormalities. Limited evaluation of the soft tissues of the neck without demonstrated abnormalities. The flow voids of the major cervical vessels are maintained. Normal appearance of the cervicomedullary junction and visualized posterior fossa. SPINAL LEVELS: C2-C3: Moderate disc-osteophyte complex eccentric to the right. There is moderate right and no left uncovertebral joint arthropathy. There is moderate left and mild right facet joint arthropathy. There is moderate right and no left neural foraminal stenosis. There is no spinal canal stenosis. C3-C4: Mild disc-osteophyte complex. There is moderate right and no left uncovertebral joint arthropathy. There is mild bilateral facet joint arthropathy. There is bilateral neural foraminal stenosis. There is no spinal canal stenosis. C4-C5: Normal annular contour. There is no uncovertebral joint arthropathy. There is mild bilateral facet joint arthropathy. There is no neural foraminal stenosis. There is no spinal canal stenosis. C5-C6: Mild disc-osteophyte complex. There is no uncovertebral joint arthropathy. There is mild bilateral facet joint arthropathy. There is no neural foraminal stenosis. There is no spinal canal stenosis. C6-C7: Mild disc-osteophyte complex. There is mild left and no right uncovertebral joint arthropathy. There is mild bilateral facet joint arthropathy. There is mild left and no right neural foraminal stenosis. There is no spinal canal stenosis. C7-T1: Normal annular contour. There is no uncovertebral joint arthropathy. There is no facet joint arthropathy. There is no neural foraminal stenosis. There is no spinal canal stenosis. MR/MR cervical spine wo con IMPRESSION: Moderately motion degraded exam. Within the limitations of this exam, there appears to be mild multilevel degenerative spondyloarthropathy of the cervical spine spine as described in detail above. Most notably, there is moderate right-sided neural foraminal stenosis at C2-C3. No additional spinal canal stenosis or nerve root compression. No MRI evidence of acute traumatic injury of the cervical spine or spinal cord.
--- NOTE | ~2021-04-29 | MR_ITS ---
EXAMINATION: MR BRAIN WITHOUT CONTRAST CLINICAL INFORMATION: Acute and subacute stroke. COMPARISON: CTA head and neck from 04/28/2021. TECHNIQUE: MRI of the brain was obtained using routine sequences without contrast. FINDINGS: Multifocal patchy regions of increased diffusion-weighted signal with mildly low values on the ADC map within the right frontal lobe predominantly involving the right precentral gyrus and centrum semiovale white matter. Associated T2 FLAIR hyperintensity. Findings are superimposed on additional regions of chronic encephalomalacia in the right frontal lobe, predominantly involving the right middle frontal gyrus, lateral aspect of the right precentral gyrus, and posterior aspect of the right insula. No evidence of acute or chronic hemorrhagic products on heme-sensitive imaging. Additional mild scattered periventricular and deep white matter T2 FLAIR hyperintensities. The ventricles are normal in morphology and size. No abnormal mass effect. No midline shift. Normal appearance of the pituitary gland. Normal positioning of the cerebellar tonsils. Diminished flow void of the right internal carotid artery and M1 segment on the right middle cerebral artery. Otherwise, normal arterial and venous vascular flow voids are present. Normal, homogeneous marrow signal. Mild mucosal thickening of the paranasal sinuses. Mild rightward nasal septal deviation. No signal abnormalities within the mastoids. MR/MR head/brain wo con IMPRESSION: Multifocal small acute to subacute infarcts of the right frontal lobe (including the precentral gyrus). Diminished flow void of the right ICA and MCA correlating with occlusion as demonstrated on recent CTA. Findings are superimposed on multiple chronic regions of encephalomalacia within the right frontal lobe and right insula. Mild additional scattered white matter changes bilaterally. No evidence of hemorrhagic conversion.
[2021-04-29 09:30] VITALS: BP 170/97; PULSE 77; RESP 17; TEMP 36.6; O2SAT 99; BMI 30.4
--- NOTE | 2021-04-29 10:23 | ED.NEUROSD ---
HPI - Neuro Symptoms/Deficit General Chief Complaint: Stroke Stated Complaint: LEFT ARM NUMBNESS SWELLING Time Seen by Provider: 04/29/21 10:21 Source: patient Mode of arrival: ambulatory Limitations: no limitations History of Present Illness HPI Narrative: 35 y/o male presents to left arm weakness in the setting of a stroke. He was seen in the ED yesterday for left arm weakness x36 hours- diagnosed with multiple strokes proximal occlusion of right ICA, multifocal infarcts throughout the right MCA territory including right frontal lobe, temporal lobe and insula both acute and subacute. Neurology was informed of him - Dr. Man advised aspirin and admission. Unfortunately he left against medical advise yesterday as he had to care for his 4 yo son last night. In the middle of the night last night patient reports regaining movement and strength of his left arm. He continues to feel like it is asleep but overall his symptoms are much better. 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 He was treated with a few months of anticoagualtion and then taken off. He reports his mother has history of multiple strokes at his age as well as pulmonary emboli. He is a smoker. He has no known history of HTN, HLD or DM. Onset (ago): day(s) (2) History of same: No Severity: moderate Quality: weak and numb Relieving factors: time Exacerbating factors: none Context: sudden onset On Anticoagulants: No Associated symptoms: denies other symptoms Treatments Prior to Arrival: none Related Data Previous Rx's Medication Instructions Recorded acetaminophen 300 mg-codeine 30 mg 1 tab PO Q8H PRN #14 tab 04/21/21 tablet ibuprofen 800 mg tablet 800 mg PO Q8H PRN #14 tab 04/21/21 Allergies Allergy/AdvReac Type Severity Reaction Status Date / Time No Known Allergies Allergy Verified 04/28/21 15:50 [No Known Allergies*] Review of Systems Review of Systems: Constitutional: No Fever, No Chills ENT/Mouth: No sore throat, No Rhinorrhea, No Swallowing Difficulty, No speech difficulty Eyes: No Eye Pain, No Swelling, No Redness, No vision changes Cardiovascular: No Chest Pain, No SOB, No Orthopnea, No Edema Respiratory: No Cough, No Sputum, No Wheezing, No dyspnea Gastrointestinal: No Nausea, No Vomiting, No Diarrhea, No abdominal Pain Genitourinary: No Dysuria, No Urinary Frequency, No Hematuria Musculoskeletal: No joint pain, No Myalgias Skin: No Skin Lesions, No rash Neuro: + Weakness, + Numbness, No Dizziness, No Headache Psych: + Anxiety/Panic, No Depression Heme/Lymph: No Bruising, No Lymphadenopathy Endocrine: No Polyuria, No Polydipsia PMFSH Past Medical History Medical History Pulmonary embolism Surgical History History of appendectomy Social History Social History Alcohol intake: current Alcohol intake frequency: holidays/special occasions only Alcohol type: beer and hard liquor Patient Tobacco Use Status: Current everyday Tobacco user Use of substances other than those prescribed or required for medical reasons: Yes Substance Use Type: Marijuana Advance Directives: No Advance Directives Information Provided: No Physical Exam Vital Signs: Vital Signs: Last Vital Signs Temp 98 F 04/29/21 09:30 Pulse 58 04/29/21 11:11 Resp 16 04/29/21 11:11 BP 160/88 H 04/29/21 11:11 Pulse Ox 100 04/29/21 11:11 BMI result Body Mass Index 30.4 Appearance: Alert. Oriented X3. No acute distress. No facial droop Eyes: Pupils equal, round and reactive to light. ENT: Pharynx normal. Neck: Normal inspection. Neck supple. CVS: Normal heart rate and rhythm. Pulses normal. Respiratory: No respiratory distress. Breath sounds normal. Abdomen: Soft and nontender. +BS x4 Skin: Skin warm and dry. Normal skin color. Normal skin turgor. No rashes. Extremities: No lower extremity edema. No calf tenderness Neuro: Oriented X 3. Compensation/Benefits Specialist strength on the left hand 4/5, push/pull 5/5 in bilateral UE, equal and symmetrical strength of bilateral LE. steady gait. normal speech. No sensory deficit. CN II-XII intact Course Course Course Narrative: 35 y/o male with history of PE in 2004 and strong family history of clots in his mother at a young age presents to the ER with acute and subacute strokes of the right ICA and MCA. Fortunately his symptoms are significantly improved. Etiology of his strokes and secondary prevention are now the focus of his care. He is agreeable to admission and workup. Hypercoaguability workup and ECHO with bubble study have been ordered. Peggy from stroke team down to see him. Will plan for admission. Consultations Consultation #1: Neuro/stroke - Peggy NIH Stroke Scale Internal: Initial- Upon Arrival Level of Consciousness: Alert Level of Consciousness Questions: Answers both questions correctly Level of Consciousness Commands: Performs both tasks correctly Best Gaze: Normal Visual: No visual loss Facial Palsy: Normal Motor Arm (Right): No drift Motor Arm (Left): No drift Motor Leg (Right): No drift Motor Leg (Left): No drift Limb Ataxia: Absent Sensory: Normal Best Language: No aphasia Dysarthia: Normal Extinction and Inattention: No abnormality Score: 0 Discharge Plan Discharge Clinical Impression: Stroke Patient Disposition: Admitted As Inpatient
--- NOTE | 2021-04-29 10:28 | PHA.MEDREC ---
Pharmacy Consult ? Medication Reconciliation Pharmacy has completed the medication reconciliation. Med rec completed by Fred on 04/28/2021. Patient left AMA on 04/28/21. Vy Botello, LupilloD
[2021-04-29 11:11] VITALS: BP 160/88; PULSE 58; RESP 16; O2SAT 100
--- NOTE | 2021-04-29 11:24 | MHC.STROKE ---
Addendum entered by Peggy Tomlin RN 04/30/21 14:23: I MET WITH PATIENT'S SO TWICE EARLIER AND SHE WAS ASSISTING HIM WITH HIS ANXIETY. I ALSO MET WITH THE PATIENT AFTER SPEAKING WITH DR RUFFIN. IS TO FOLLOW UP WITH DR RUFFIN IN HIS OFFICE. HE SHOULD ALSO FOLLOW UP WITH DR BIRCH HIS PCP, CARDIOLOGY FOR POSSIBLE DAVEY, DR MCDANIELS FOR VASCULAR FOLLOW UP. I DID EXPLAIN ALL OF THIS TO THE PATIENT AND HOW IMPORTANT THIS WAS. HE WILL BE ON AN ASPIRIN AND STATIN AND I DID EXPLAIN WHY. HE NEEDS TO CONTINUE TO MONITOR HIMSELF FOR ANY NEUROLOGICAL CHANGES. HE IS GOING TO BE DISCHARGED TODAY AND I REINFORCED THIS PLAN WITH HIM AND SO. HE WILL GET A URINE TOX SCREEN PRIOR TO DISCHARGE. HE WAS ADVISED TO STAY AWAY FROM STIMULANTS, DECREASE OR AVOID CAFFEINE. NO OVER THE COUNTER MEDICATIONS, ILLEGIBLE DRUGS, ETC. HE RELAYED THAT HE UNDERSTANDS ALL OF THIS AND WILL COMPLY. Addendum entered by Peggy Tomlin RN 04/29/21 16:16: I HAVE BEEN EDUCATING AND REINFORCING THE PLAN OF CARE THROUGHOUT THE DAY TEST RESULTS COME IN. I ROUNDED WITH DR RUFFIN AND IN THAT CONVERSATION THE PATIENT DID MENTION THAT HE WAS BINGE DRINKING HEAVILY ON TUESDAY NIGHT 04/25, HE ALSO HAD SEVERAL STIMULANT DRINKS AND TOOK A GAS STATION PILL MAGNUM, WHICH IS A SUPER STIMULANT. HE CAN'T REMEMBER IF HE DID ANYTHING TO HIS NECK BUT HE DOESN'T THINK SO. SEE DR RUFFIN'S NOTE FOR ADDITIONAL RECOMMENDATIONS. I HAVE PROVIDED THE PATIENT WITH SOME INFORMATION ON REVERSIBLE CEREBRAL VASOCONSTRICTION SYNDROME AND DR RUFFIN ENCOURAGED HIM TO RESEARCH THIS AND NOT TO TAKE ANY MORE OF THESE TYPES OF MEDICATIONS. HE SHOULD ALSO FOLLOW UP WITH DR RUFFIN AN OUTPATIENT. THE PATIENT HAS AGREED TO STAY UNTIL TOMORROW AND COMPLETE THE STROKE WORK UP BUT HE WANTS TO LEAVE EARLY POSSIBLE. Original Note: 04/29/21 0924 WALK-IN C/O LEFT ARM WEAKNESS. HE WAS HERE YESTERDAY 04/28/21 FOR SIMILAR SYMPTOMS THAT WERE DISCOVERED 04/27/21 AT 0630 UPON WAKING. HE HAD A CTA H/N WITH A RIGHT PROXIMAL INTERNAL CAROTID OCCLUSION, (SEE REPORT) BUT HER REFUSED TO STAY. HIS PMH INCLUDES A PE AND HE WAS ON LOVENOX AND COUMADIN, SEVERE HEADACHE WITH INTERCOURSE HE WENT TO [facility] AND HAD A BRAIN ANGIOGRAM. (WE WILL OBTAIN THAT REPORT. HE SMOKES, AND USES MARJUANA, HE DRINKS 2-3 ENERGY DRINKS A DAY (RED BULL, MONSTER). HE DOES NOT TAKE ANY OVER THE COUNTER MEDS. HE IS SUPPOSE TO TAKE ASPIRIN BUT DOES NOT. HE SEES DR DANI BIRCH BUT HAS NOT BEEN TO HIM IN A FEW YEARS. HIS MOTHER HAS A CLOTTING DISORDER, HE DOESN'T KNOW WHAT. HE WAS HERE ABOUT 1 MONTH AGO FOR LEFT ARM AND WRIST WEAKNESS. 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 I DISCUSSED CASE WITH DR RUFFIN AND HE WILL NEED TO BE ADMITTED TO MONITORED UNIT, MRI W/O, ECHO WITH BUBBLE, ASPIRIN, LIPID PANEL, HYPERCOAG WORK-UP, REHAB ASSESMENT, STROKE EDUCATION AND SWALLOW SCREEN DONE.
[2021-04-29 12:31] LABS: MANUAL DIFF FLAG NO
[2021-04-29 12:38] LABS: Basophils Absolute Auto 0.1 X10*3/uL (0.0-0.2); Basophils Percent Auto 0.7 % (0-2); Eosinophils Absolute Auto 0.3 X10*3/uL (0.0-0.4); Eosinophils Percent Auto 3.3 % (0-4); Hematocrit 45.8 % (42.0-52.0); Hemoglobin 15.5 g/dl (14.0-18.0); Imm Gran Abs Auto 0.04 X10*3/uL (0.00-0.03); Imm Gran Pct Auto 0.4 % (0.0-0.4); Lymphocytes Absolute Auto 1.9 X10*3/uL (1.2-4.9); Mean Corpuscular HGB Conc 33.8 g/dl (31.0-36.0); Mean Corpuscular Hemoglobin 28.8 pg (27.0-33.0); Mean Platelet Volume 9.2 fL (9.4-12.4); Monocytes Absolute Auto 0.7 X10*3/uL (0.1-1.2); Monocytes Percent Auto 7.7 % (2-11); Neutrophils Absolute Auto 6.5 x10*3/uL (2.0-8.3); Neutrophils Percent Auto 67.9 % (45-73); Platelet Count 288 X10*3/uL (160-400); Red Blood Count 5.39 X10*6/uL (4.60-5.80); Red Cell Distribution Width 12.1 % (11.0-16.0); White Blood Count 9.6 X10*3/uL (4.8-10.8)
[2021-04-29 12:42] LABS: INTERNATIONAL NORM RATIO 1.1 (0.9-1.1)
[2021-04-29 12:44] LABS: Partial Thromboplastin Time 37.2 SEC (24.1-38.0)
[2021-04-29 12:56] LABS: COVID-19 Test Negative (Negative)
[2021-04-29 12:58] VITALS: BP 160/88; PULSE 58; O2SAT 100
[2021-04-29 13:08] LABS: Alanine Aminotransferase 43 U/L (0-40); Albumin Level 4.4 g/dL (3.5-5.0); Alkaline Phosphatase 74 U/L (39-117); Anion Gap 10 (12-20); Aspartate Amino Transferase 27 U/L (5-37); Bilirubin Direct 0.2 mg/dL (0.0-0.5); Bilirubin Total 0.4 mg/dL (0.0-1.0); Carbon Dioxide 28 mmol/L (22-29); Chloride 106 mmol/L (96-108); Creatinine Clr Calc Pharmacy 120.1; Estimated Glomerular Filt Rate > 60; Glucose Random 103 mg/dL (60-115); Magnesium 2.1 mg/dL (1.6-2.6); Potassium 4.4 mmol/L (3.3-5.1); Sodium 140 mmol/L (135-145)
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
[2021-04-29] MEDS: Aspirin 325 MG TABLET PO (14:52)
[2021-04-29] MEDS: Enoxaparin Sodium 40 MG/0.4 ML SYRINGE SUBCUT (14:52)
[2021-04-29 14:55] VITALS: BP 130/82; PULSE 75; RESP 13; O2SAT 97
[2021-04-29 15:02] LABS: Blood Urea Nitrogen 9 mg/dL (9-16); Calcium 9.8 mg/dL (8.4-10.2)
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
[2021-04-29 15:55] VITALS: BP 139/89; PULSE 67; RESP 20; TEMP 36.6; O2SAT 97
--- NOTE | 2021-04-29 15:58 | PC.NURSE ---
Pt received from main ER ( no report given): Pt AOX4 and presents with L arm numbess and tingling. Neuro assessment shows L arm drift, decreased L hand meat molder and intermittent numbness. Pt also c/o L lateral neck tightness and pain. No visual complaints. NSR noted and lungs. Pt able to stand and pivot into bed. Pt abd soft and non-tender.
--- NOTE | 2021-04-29 17:20 | PC.NURSE ---
Pt to MRI of cervical spine at this time.
[2021-04-29] MEDS: Nicotine 14 MG PATCH.TD24 TRANSDERMA (17:55)
--- NOTE | 2021-04-29 18:32 | PC.NURSE ---
Pt unable to obtain MRI of cervical spine at this time, as the machine broke during testing. Pt still needs MRI to be completed. RN will continue to monitor.
--- NOTE | 2021-04-29 19:05 | PC.NURSE ---
Assumed care of pt at 1900. Pt resting in bed, in NAD, ambulates independently to and from bathroom. Awaiting inpatient bed assignment
[2021-04-29] MEDS: Zolpidem Tartrate 5 MG TABLET PO (21:26)
[2021-04-29] MEDS: Acetaminophen 325 MG TABLET 650 MG PO (23:28)
[2021-04-29 23:34] VITALS: BP 145/89; PULSE 78; RESP 25; O2SAT 98
[2021-04-30 06:28] VITALS: BP 125/76; PULSE 66; RESP 17; O2SAT 96
[2021-04-30 07:37] LABS: Cholesterol 176 mg/dL; HDL Cholesterol 36 mg/dL; LDL Cholesterol Calculated 118 mg/dl; Triglycerides 114 mg/dL
--- NOTE | 2021-04-30 07:48 | ECG_ITS ---
Test Reason : stroke Blood Pressure : / mmHG Vent. Rate : 065 BPM Atrial Rate : 065 BPM P-R Int : 170 ms QRS Dur : 086 ms QT Int : 386 ms P-R-T Axes : 025 034 054 degrees QTc Int : 401 ms Normal sinus rhythm Normal ECG When compared with ECG of 28-APR-2021 17:21, No significant change was found Referred By: Barbara Leiva Electronically Signed By:Raz Zepeda
[2021-04-30 08:12] VITALS: BP 131/64; PULSE 65; RESP 19; TEMP 36.4; O2SAT 97
[2021-04-30] MEDS: Nicotine 14 MG PATCH.TD24 TRANSDERMA (09:08)
[2021-04-30] MEDS: Acetaminophen 325 MG TABLET 650 MG PO (09:08)
--- NOTE | 2021-04-30 10:34 | PM.CNCAR ---
History of Present Illness History of Present Illness Date of Service: 04/30/21 Requesting physician: Jon Teixeira Chief complaint: acute CVA Narrative: 35-year-old gentleman who is here for left arm weakness. He noted left arm weakness which was sudden onset and came to the emergency department. He was diagnosed with CVA based on brain MRI which showed small acute to subacute infarcts which are multifocal in the right frontal lobe. Diminished flow void of right ICA and MCA correlated with occlusion. No hemorrhage. CTA of the brain is showing proximal occlusion of the right internal carotid artery with posture intracranial reconstitution of right internal carotid artery. Associated multiple infarcts in the right MCA territory. We have been asked to assess him for DAVEY. Patient has background cocaine use which was many years ago. I think he presented in 2013 with headaches during intercourse and was using excessive caffeine and energy drinks. He was thought to have reversible cerebral vasoconstrictive syndrome. As per Neurology this could be the cause for his presentation again. He had occluded right internal carotid artery on his brain MRI. His left arm weakness since improving but he is still quite weak. He smokes cigarettes. Drinks socially. Denying any other recreational drug at this point. He drinks 3-4 at bowls a day. [facility] Past Medical History Medical History Pulmonary embolism Surgical History Surgical History History of appendectomy Social History Social History Alcohol intake: current Alcohol intake frequency: holidays/special occasions only Alcohol type: beer and hard liquor Patient Tobacco Use Status: Current everyday Tobacco user Use of substances other than those prescribed or required for medical reasons: Yes Substance Use Type: Marijuana Advance Directives: No Advance Directives Information Provided: No Meds Allergies Allergy/AdvReac Type Severity Reaction Status Date / Time No Known Allergies Allergy Verified 04/28/21 15:50 [No Known Allergies*] Active Medications: Current Medications Acetaminophen (Acetaminophen 325 Mg Tablet) 650 mg PO Q6H PRN PRN Reason: Pain, Mild (Pain Scale 1-3) Last Admin: 04/30/21 09:08 Dose: 650 mg Documented by: Enoxaparin Sodium (Enoxaparin Sodium 40 Mg/0.4 Ml Syringe) 40 mg SUBCUT Q24H [facility] Last Admin: 04/29/21 14:52 Dose: 40 mg Documented by: Nicotine (Nicotine 14 Mg Patch.Td24) 14 mg TRANSDERMA DAILY [facility] Last Admin: 04/30/21 09:08 Dose: 14 mg Documented by: Ondansetron HCl (Ondansetron Hcl 4 Mg/2 Ml Vial) 4 mg IVPUSH Q8H PRN PRN Reason: Nausea and Vomiting Pharmacy Consult (Consult Rx Perform Med Rec) 1 each MISCELLANE ONCE PRN PRN Reason: Consult order Sodium Chloride (0.9 % Sodium Chloride Flush 3 Ml Syringe) 3 ml IVFLUSH QSHIFT [facility] Last Admin: 04/30/21 08:37 Dose: Not Given Documented by: Zolpidem Tartrate (Zolpidem Tartrate 5 Mg Tablet) 5 mg PO BEDTIME PRN PRN Reason: Insomnia Last Admin: 04/29/21 21:26 Dose: 5 mg Documented by: Physical Exam Vital Signs: Vital Signs: Last Vital Signs Temp 97.5 F 04/30/21 08:12 Pulse 65 04/30/21 08:12 Resp 19 04/30/21 08:12 BP 131/64 04/30/21 08:12 Pulse Ox 97 04/30/21 08:12 BMI result Body Mass Index 30.4 GENERAL APPEARANCE: in no acute distress, pleasant. NECK: no carotid bruit, no jugular venous distention. SKIN: no suspicious lesions, warm and dry. HEART: no murmurs, regular rate and rhythm. LUNGS: clear to auscultation bilaterally. ABDOMEN: soft, nontender. EXTREMITIES: no edema. PERIPHERAL PULSES: equal. NEUROLOGIC: Left arm power 3+ out of 5. His left arm dominant. Objective Labs and Meds Result diagrams: 04/29/21 12:20 04/29/21 12:20 Lab results: Laboratory Results - last 24 hr 04/29/21 04/29/21 04/29/21 12:20 12:20 12:21 WBC 9.6 RBC 5.39 Hgb 15.5 Hct 45.8 MCV 85.0 MCH 28.8 MCHC 33.8 RDW 12.1 Plt Count 288 MPV 9.2 L Immature Gran % (Auto) 0.4 Neut % (Auto) 67.9 Lymph % (Auto) 20.0 [place] % (Auto) 7.7 Eos % (Auto) 3.3 Baso % (Auto) 0.7 Lymph # (Auto) 1.9 [place] # (Auto) 0.7 Eos # (Auto) 0.3 Baso # (Auto) 0.1 Abs Immat Gran (auto) 0.04 H Absolute Neuts (auto) 6.5 Absolute Nucleated RBC 0.000 Nucleated RBC % (auto) 0.0 PT INR APTT Sodium 140 Potassium 4.4 Chloride 106 Carbon Dioxide 28 Anion Gap 10 L BUN 9 Creatinine 0.93 Estim Creat Clear Calc 120.1 Estimated GFR > 60 Random Glucose 103 Calcium 9.8 Magnesium 2.1 Total Bilirubin 0.4 Direct Bilirubin 0.2 AST 27 ALT 43 H Alkaline Phosphatase 74 Total Protein 7.0 Albumin 4.4 Triglycerides Cholesterol LDL Cholesterol, Calc HDL Cholesterol COVID-19 (BETO) Negative COVID-19 Clin Com See Note 04/29/21 04/30/21 12:21 06:47 WBC RBC Hgb Hct MCV MCH MCHC RDW Plt Count MPV Immature Gran % (Auto) Neut % (Auto) Lymph % (Auto) [place] % (Auto) Eos % (Auto) Baso % (Auto) Lymph # (Auto) [place] # (Auto) Eos # (Auto) Baso # (Auto) Abs Immat Gran (auto) Absolute Neuts (auto) Absolute Nucleated RBC Nucleated RBC % (auto) PT 12.0 INR 1.1 APTT 37.2 Sodium Potassium Chloride Carbon Dioxide Anion Gap BUN Creatinine Estim Creat Clear Calc Estimated GFR Random Glucose Calcium Magnesium Total Bilirubin Direct Bilirubin AST ALT Alkaline Phosphatase Total Protein Albumin Triglycerides 114 Cholesterol 176 LDL Cholesterol, Calc 118 HDL Cholesterol 36 COVID-19 (BETO) COVID-19 Clin Com Imaging Radiologist's impression: Impressions Brain MRI 04/29/21 11:50 IMPRESSION: Multifocal small acute to subacute infarcts of the right frontal lobe (including the precentral gyrus). Diminished flow void of the right ICA and MCA correlating with occlusion as demonstrated on recent CTA. Findings are superimposed on multiple chronic regions of encephalomalacia within the right frontal lobe and right insula. Mild additional scattered white matter changes bilaterally. No evidence of hemorrhagic conversion. Assessment and Plan (1) Stroke: Status: Acute Plan 35 year gentleman is presenting for left arm weakness and brain imaging is consistent with right MCA stroke with occluded right internal carotid artery. He has background of cerebral vasoconstrictive syndrome due to caffeine intake. He has been using significant amount of energy drinks. This as per Neurology can be 1 potential cause for his CVA. Pre with baby aspirin. We will do echocardiogram with bubble study to see if there is any suspicion for PFO. If this is negative then I will consider an outpatient DAVEY on him. Agree with hypercoagulable workup. We will also arrange cardiac event monitor for him as outpatient to make sure he does not develop any atrial fibrillation of flutter due to stimulate use. Patient instructed not to use energy drinks anymore. Thank you for allowing me to participate in the care of your patient. Please feel free to contact me if you have any questions. Procedures Date of Service Date of Service: 04/30/21
--- NOTE | 2021-04-30 10:37 | CA_ITS ---
Transthoracic Echocardiogram Patient (Last, First, Middle): Sánchez Camarena S Gender: Male Date of : 1985 Age: 35 Procedure Date: 04/30/2021 Procedure Type: Transthoracic Echocardiogram Location: OP Height: 172.72 cm Weight: 90.72 kg BSA: 2.04 m2 Heart Rate: bpm BP: 125 / 76 mmHg Dish Carrier: JATIN Henderson MD: Barbara NOGUERA Resident Care Coordinator: Chapin Silva MD Symptoms: strokes, needs bubble study Study Quality: Fair ECG Rhythm: Sinus Conclusions: - Essentially normal study with trivial pericardial effusion with no evidence of PFO by saline contrast study Findings Left Ventricle Normal left ventricular size, thickness, and systolic function. The visually estimated ejection fraction is between 60-65%. Spectral Doppler is indicative of a normal filling pattern. Right Ventricle Normal right ventricular cavity size and systolic function. Atria Both atria are normal in size. There is lipomatous hypertrophy of the interatrial septum. There is no evidence of interatrial shunt by agitated saline. Aortic Valve Normal aortic valve structure and function. There is no aortic valve stenosis. There is no aortic valve regurgitation. Mitral Valve Normal mitral valve structure and function. There is trace mitral valve regurgitation. There is no mitral valve stenosis. Pulmonic Valve The pulmonic valve is likely normal. Tricuspid Valve Normal tricuspid valve structure. There is trace tricuspid valve regurgitation. The right ventricular systolic pressure is normal. The right ventricular systolic pressure is 13 mmHg. Normal right atrial pressure. There is no evidence of pulmonary hypertension. Great Vessels All visible segments of the aorta are normal in size. The pulmonary artery was not well visualized. Venous The inferior vena cava is normal in size and collapses greater than 50% with inspiration. Pericardium/Pleural There is a trivial circumferential pericardial effusion. Prior Study Comparison No prior study available for comparison. Recommendations, Care & Conclusions Consider a DAVEY if clinically appropriate. Measurements 2D Linear Measurements IVSd: 1.09 0.6-0.9/0.6-1.0 cm LVIDd: 4.28 3.9-5.3/4.2-5.9 cm LVIDd Index: 2.10 2.4-3.2/2.2-3.1 cm/m2 LVIDs: 2.96 2.0-3.6 cm LVPWd: 1.10 0.7-1.1 cm Ao Root: 2.90 2.1-3.5 cm LA Diam: 3.30 2.7-3.8/3.0-4.0 cm LAIDs Index: 1.62 1.5-2.3 cm/m2 LV Mass: 200.13 67-162/88-224 g LV Mass Index: 98.11 43-95/49-115 g/m2 LVOT Diam: 2.00 3.0+(-)1.3 cm 2D Systolic Function EF 4C: 60.00 >55% EF 2C: 60.20 >55% EF BiP: 60.10 >55% Mitral Valve MV Pk E: 0.72 MV PK A: 0.51 MV Decel Time: 319.00 E/A: 1.40 E'Lateral: 12.20 E'Medial: 8.59 E/E' Med: 8.40 E/E' Lat: 5.90 PHT: 93.00 MVA PHT: 2.37 Decel Hamlin: 2.26 Aortic Valve AoV Pk Davi: 1.19 AoV Mn Davi: 0.85 AoV VTI: 0.24 AoV Pk Grad: 6.00 Aov Mn Grad: 3.00 RENA Cont.VTI: 2.61 LVOT LVOT Pk Davi: 0.90 LVOT Mn Davi: 0.64 LVOT VTI: 0.20 LVOT Pk Grad: 3.00 LVOT Mn Grad: 2.00 LVOT Diam: 2.00 LVOT Area: 3.14 Diastolic Function MV Pk E: 0.72 MV Pk A: 0.51 E/A: 1.40 E'Medial: 8.59 E/E' Med: 8.40 E' Laterial: 12.20 E/E' Lat: 5.90 Right Ventricle TAPSE (mm): 16.00 TVS' Davi: 11.00 Tricuspid Valve TR Pk Davi: 1.55 TR Pk Grad: 10.00 RA Press: 3.00 RVSP: 13.00 Great Vessels Aorta Ao Root-2D: 2.90 2.0-3.7 cm Ao Asc: 2.80 2.1-3.4 cm Ao Arch: 2.60 Updated in Other Vendor System with Status of Final Chapin Silva MD electronically signed on 04/30/2021 1:27:49 PM with status of Final
[2021-04-30] MEDS: Enoxaparin Sodium 40 MG/0.4 ML SYRINGE SUBCUT (12:06)
--- NOTE | 2021-04-30 12:57 | PM.CNGS ---
History of Present Illness Consult details Consult date: 04/30/21 Reason for consult: other (Carotid stenosis) Narrative: Pleasant 35-year-old gentleman with quite an unclear history presents to the hospital for left upper extremity weakness. He reports that prior to admission and had been going on for approximately 36 hours. He complained of some discomfort in the trapezius. Had difficulty lifting his left arm and gripping. During his admission it has improved somewhat. Of note he does have a prior history of pulmonary embolism. Upon workup he was noted to have a right carotid occlusion. He now presents to us for vascular evaluation. Review of Systems Review of Systems: Yes all other systems are reviewed and are negative Constitutional: Constitutional: Reports no additional constitutional complaints ENT: Reports Normal hearing present Cardiovascular: Cardiovascular: Denies chest pain, Denies chest pain at rest, Denies chest pain with activity and Denies pedal edema Respiratory: Respiratory: Denies cough Gastrointestinal: Gastrointestinal: Denies abdominal pain Musculoskeletal: Musculoskeletal: Denies abnormal gait, Denies muscle cramps and Denies radiating pain into limb Integumentary/Breasts: Skin/Breast: Denies skin ulcer and Denies wounds Neurologic: Reports Normal hearing present and Denies abnormal gait Psychiatric: Psychiatric: Reports no additional psychiatric complaints PMFSH Past Medical History Medical History Pulmonary embolism Surgical History Surgical History History of appendectomy Social History Social History Alcohol intake: current Alcohol intake frequency: holidays/special occasions only Alcohol type: beer and hard liquor Patient Tobacco Use Status: Current everyday Tobacco user Use of substances other than those prescribed or required for medical reasons: Yes Substance Use Type: Marijuana Advance Directives: No Advance Directives Information Provided: No Meds Allergies Allergy/AdvReac Type Severity Reaction Status Date / Time No Known Allergies Allergy Verified 04/28/21 15:50 [No Known Allergies*] Active Medications: Current Medications Acetaminophen (Acetaminophen 325 Mg Tablet) 650 mg PO Q6H PRN PRN Reason: Pain, Mild (Pain Scale 1-3) Last Admin: 04/30/21 09:08 Dose: 650 mg Documented by: Enoxaparin Sodium (Enoxaparin Sodium 40 Mg/0.4 Ml Syringe) 40 mg SUBCUT Q24H [facility] Last Admin: 04/30/21 12:06 Dose: 40 mg Documented by: Nicotine (Nicotine 14 Mg Patch.Td24) 14 mg TRANSDERMA DAILY [facility] Last Admin: 04/30/21 09:08 Dose: 14 mg Documented by: Ondansetron HCl (Ondansetron Hcl 4 Mg/2 Ml Vial) 4 mg IVPUSH Q8H PRN PRN Reason: Nausea and Vomiting Pharmacy Consult (Consult Rx Perform Med Rec) 1 each MISCELLANE ONCE PRN PRN Reason: Consult order Sodium Chloride (0.9 % Sodium Chloride Flush 3 Ml Syringe) 3 ml IVFLUSH QSHIFT [facility] Last Admin: 04/30/21 08:37 Dose: Not Given Documented by: Zolpidem Tartrate (Zolpidem Tartrate 5 Mg Tablet) 5 mg PO BEDTIME PRN PRN Reason: Insomnia Last Admin: 04/29/21 21:26 Dose: 5 mg Documented by: Physical Exam Vital Signs: Vital Signs: Last Vital Signs Temp 97.5 F 04/30/21 08:12 Pulse 65 04/30/21 08:12 Resp 19 04/30/21 08:12 BP 131/64 04/30/21 08:12 Pulse Ox 97 04/30/21 08:12 BMI result Body Mass Index 30.4 Const: General: cooperative, healthy appearing and comfortable Orientation/consciousness: oriented to person, oriented to place and oriented to time HENMT: Head: Yes normal to inspection Neck: Neck: Yes normal visual inspection Carotids: no bruits Chest: Chest palpation & inspection: normal inspection of the chest Resp: Effort & Inspection: normal respiratory effort and able to speak in complete sentences Auscultation: clear to auscultation bilaterally, no crackles, no rales, no rhonchi and no wheezes Cardio: Rate: regular rate Rhythm: regular rhythm Heart sounds: S1 normal heart sound present and S2 normal heart sound present Bruits: no carotid bruits Peripheral pulses: Peripheral pulses 2+ throughout GI: Inspection: Yes normal to inspection Skin: Wounds: no wounds Hair: normal Neuro: General: oriented to person, oriented to place and oriented to time Cranial nerves: Yes CN's II-XII intact bilaterally and Yes Normal hearing present Cognition (Neuro): normal cognition Motor exam (neuro): 5/5 motor strength present throughout Extrem: Other: venous exam: No significant superficial varicosities or spider telangiectasias, minimal edema General: No clubbing, No cyanosis and No edema Psych: Appearance: grossly normal Mental Status: mental status grossly normal Speech and movement: Normal speech and movement present Results Labs Result diagrams: 04/29/21 12:20 04/29/21 12:20 Labs: Abnormal lab results 04/29/21 Range/Units 12:20 Anion Gap 10 L (12-20) ALT 43 H (0-40) U/L BMP 04/29/21 12:20 Sodium 140 Potassium 4.4 Chloride 106 Carbon Dioxide 28 BUN 9 Creatinine 0.93 Calcium 9.8 Liver Function 04/29/21 Range/Units 12:20 Total Bilirubin 0.4 (0.0-1.0) mg/dL Direct Bilirubin 0.2 (0.0-0.5) mg/dL AST 27 (5-37) U/L ALT 43 H (0-40) U/L Alkaline Phosphatase 74 (39-117) U/L Albumin 4.4 (3.5-5.0) g/dL All other labs normal. Imaging Additional studies: CT head neck and reviewed written report and images Assessment and Plan (1) Carotid stenosis: Status: Acute Plan In short patient has right carotid occlusion. It is quite unusual that such a young gentleman with very low risk factors has an occlusion. In addition prior history of pulmonary embolism. At the current time will await final MRI evaluation. I do suspect this may be more neurologic in nature upon his description. He will require upon discharge follow-up with me regarding his carotid disease. Will need more formal evaluation and surveillance follow-up in particular for a young 35-year-old gentleman with a carotid occlusion. This was discussed with the patient. Thank you for allowing us to assist in his care. If there are questions or concerns please do not hesitate to contact us. Procedures Date of Service Date of Service: 04/30/21
--- NOTE | 2021-04-30 13:49 | MHC.CM.PN ---
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 CM EXPLAINED THE DOCUMENT AND INFORMED HIS FIANCE THAT CM COULD ASSIST IN COMPLETING ONE IF INTERESTED DURING ADMISSION SHE REPORTS THE PT IS VACCINATED AGAINST COVID-19 CURRENT DC PLAN IS HOME WITH NO SERVICES FIANCE TO TRANSPORT
[2021-04-30 14:22] VITALS: BP 151/81; PULSE 98; RESP 14; TEMP 36.6; O2SAT 100
[2021-04-30 14:50] LABS: Amphetamine Screen Urine Not Detected (Not Detect); Barbiturates, Urine Not Detected (Not Detect); Benzodiazepines Screen Urine Not Detected (Not Detect); Cannabinoid Screen Urine POSITIVE (Not Detect); Cocaine Screen Urine Not Detected (Not Detect); Fentanyl, urine Not Detected (Not Detect); Opiate Screen Urine Not Detected (Not Detect); Phencyclidine Screen Urine Not Detected (Not Detect)
[2021-04-30] MEDS: Aspirin Enteric Coated 81 MG TABLET.DR PO (14:58)
[2021-04-30] MEDS: Atorvastatin Calcium 40 MG TABLET PO (14:58)
--- NOTE | 2021-04-30 15:08 | MHC.CM.PN ---
Addendum entered by Fernanda Butt 04/30/21 16:34: Patient has a new PCP appointment scheduled for 05/[address] Smith. After new patient appointment is completed, PCP can request home VNA. Original Note: Received notification from Dr Teixeira that patient will be discharged. Patient has no PCP. No VNA services can be arranged. Patient's fiance will transport patient home.
--- NOTE | 2021-04-30 15:10 | PM.DS ---
DS: Providers Provider Date of Service: 04/30/21 Date of admission: 04/29/21 12:23 Primary care physician: None Physician Consults: 04/29/21 12:26 Consult to Neurology Routine Consulting Provider: [facility] Reason for consultation: acute cva Has provider been notified: No 04/29/21 14:22 Consult to Vascular Surgery Routine Consulting Provider: Jose Sage Reason for consultation: proximal occlusion of right internal carotid artery Has provider been notified: No 04/29/21 16:48 Consult to Cardiology Routine Consulting Provider: Raz Zepeda Reason for consultation: DAVEY Has provider been notified: No DS: Diagnosis Discharge Diagnosis (1) Carotid stenosis: Status: Acute DS: Summary Hospital Course Hospital Course: Chief Complaint:? left arm weakness ?35-year-old gentleman with past medical history of PE in 2004 or 2005 in the setting of prolonged immobilization in [facility] bus for 24 hours treated with anticoagulation for couple months with no other medical history of hypertension, diabetes mellitus, hyperlipidemia, was seen at [facility] yesterday for left arm weakness of 36 hours duration diagnosed to have proximal occlusion of right internal carotid artery, with multifocal infarction throughout the right MCA territory including right frontal, temporal lobe and insula both acute and subacute? seen on CTA head and neck,patient was treated with aspirin and recommended admission but unfortunately patient left against medical advice since he had to take care of his 4-year-old son, last night he felt that his left upper extremity strength and movement came back but since he continue to feel heaviness and left arm he decided to return to emergency room, he denies headache dizziness no visual symptoms, no speech impairment, denies any trauma no fevers no chills,no new weakness, numbness, since left hospital yesterday, he admits to smoking half pack of cigarettes a day and also provide family history of multiple strokes and PE? in his mother. of note patient had several days of numbness of 4th and 5th digits left hand with radiation to neck, also had symptoms of left foot and ankle pain on April 21 after an injury patient later admitted of drinking high caffeinated drinks. hospital course 35 y/o male with history of PE in 2004 and strong family history of? thromboembolism in his mother presented to ER with left-sided weakness CTA head and neck showed multiple acute and subacute strokes of the right ICA and MCA, has prior history of severe headache in March of 2013,CTA head at that time showed no acute intracranial abnormality, but showed significant asymmetrical decreased opacification / flow within the right posterior cerebral artery and could be related to underlying vasculopathy or due to reversible cerebral vasoconstriction syndrome with history of high caffeinated drinks. ?Acute CVA with left-sided weakness, that has significantly improved since admission, has mild persistent left hand weakness,?MRI brain showed multifocal small acute to subacute infarction of the right frontal lobe including the precentral gyrus, diminished flow of the right internal carotid artery and MCA correlating with occlusion of right?ICA, also noted to have multiple chronic regions of encephalomalacia within the right frontal lobe and right insula, with no evidence of hemorrhagic conversion, an echocardiogram showed EF 60-65%, no evidence of interatrial shunt, no aortic valve regurgitation, no evidence of pulmonary hypertension,LDL 118, U tox positive for marijuana patient treated with aspirin, statin strongly recommend to abstain from caffeinated drinks due to concern for reversible cerebral vaso constriction syndrome, patient evaluated by Cardiology and they will follow up patient to arrange for outpatient Holter monitor and possible DAVEY, patient seen by Neurology and they recommend close outpatient follow-up with them, and to repeat MRI study in few weeks to see if there is improvement in MRI finding, patient seen by Dr. Sage and he recommend outpatient follow-up with him to follow-up on right ICA occlusion, patient also needs to follow-up with Hematology for hypercoagulable workup. will discharge patient on aspirin and Lipitor 40 mg by mouth daily recommended compliance with medications and informed him about importance of outpatient follow-up with all consultants seen by Occupational therapy and they recommend outpatient OT cervical spine MRI showed moderate right-sided neural foraminal stenosis at C2-C3 no additional spinal canal stenosis or nerve root compression noted, mild multilevel degenerative spondyloarthropathy of the cervical spine with no evidence of acute traumatic injury of cervical spine or spinal cord ?tobacco use disorder strongly recommend to abstain from smoking nicotine patch ordered, counseling done Time Spent with Patient Time attestation: Total time spent providing and/or coordinating discharge services: Discharge coordination time: Greater than 30 minutes Quality: Stroke Does the patient have a stroke diagnosis?: No Physical Exam Vital Signs: Vital Signs: Last Vital Signs Temp 97.9 F 04/30/21 14:22 Pulse 98 04/30/21 14:22 Resp 14 02/10/22 14:22 BP 151/81 H 02/10/22 14:22 Pulse Ox 100 04/30/21 14:22 BMI result Body Mass Index 30.4 Const: Other: General? awake alert x3, no acute distress.? Neck no spasm, no JVD. CVS? regular rate rhythm, Respiratory lungs clear to auscultation, no respiratory distress, no wheeze, no rhonchi. Gastrointestinal abdomen soft, nontender, bowel sounds audible. Extremities no edema. Neuro? 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 Skin no rash Psych appropriate affect DS: Data Data Completed and Pending Labs on day of discharge: Laboratory Results - last 24 hr 04/30/21 04/30/21 04/30/21 06:47 06:47 14:18 LA PTT Screen Cancelled LA Thrombin Time Cancelled dRVV Screen Cancelled dRVVT Confirm Interp Cancelled dRVVT Mixing Study Cancelled dRVVT Mix Interpret Cancelled Hexagon Phase Neutraliz Cancelled Lupus Anticoag Interp Cancelled Protein C Antigen Cancelled Protein C Activity Cancelled Protein S Activity Cancelled Total Protein S Ag Cancelled Free Protein S Antigen Cancelled Antithrombin III Ag Cancelled Factor V Leiden Cancelled Factor V Leiden Interp Cancelled Triglycerides 114 Cholesterol 176 LDL Cholesterol, Calc 118 HDL Cholesterol 36 Urine Opiates Screen Not Detected Urine Fentanyl Screen Not Detected Ur Barbiturates Screen Not Detected Ur Phencyclidine Scrn Not Detected Ur Amphetamines Screen Not Detected U Benzodiazepines Scrn Not Detected Urine Cocaine Screen Not Detected U Marijuana (THC) Screen POSITIVE H Prothrombin [id number] Mut Cancelled Prothrombin Mut Interp Cancelled Discharge Plan Discharge Patient Disposition: Home, Self-Care Discharge Diagnosis: acute CVA right internal carotid artery occlusion Referrals: Sherwin Man MD [Physician] - 1 Week Raz Zepeda MD [Physician] - 1 Week Jose Sage MD [Physician] - 1 Week Jazmin Prieto MD [Physician] - 1 Week Physician,None [Primary Care Provider] - 1 Week Discharge Medications: New atorvastatin 40 mg Tablet 40 mg PO DAILY Qty: 30 0RF nicotine 14 mg/24 hr Patch 24 Hour 14 mg transdermal DAILY Qty: 30 0RF aspirin 81 mg Tablet,Delayed Release (Dr/Ec) 81 mg PO DAILY Qty: 30 0RF Continued acetaminophen-codeine 300-30 mg tablet 1 tab PO Q8H PRN (Reason: pain) Qty: 14 0RF Discontinued ibuprofen 800 mg tablet 800 mg PO Q8H PRN (Reason: pain) Qty: 14 0RF Discharge Orders: Discharge Order (Routine); Ordered 04/30/21 Ordered By: Jon Teixeira Diet: low fat, low cholesterol Activity on Discharge: As tolerated Stand Alone Forms: Patient Portal Discharge page Care Plan Goals: acute on chronic strokes take aspirin and Lipitor, stop smoking and please follow-up closely with primary care physician, Neurology, vascular surgery, Hematology and Cardiology stop using caffeinated products/ avoid alcohol Health Concerns: cholesterolemia follow low-cholesterol diet and take Lipitor, active tobacco use please abstain from smoking due to high risk of stroke take nicotine patch Plan of Treatment: outpatient follow-up with primary care physician in 1 week, outpatient follow-up with Dr. Sage in 2-3 weeks, outpatient follow-up with Neurology Dr Man in 2-3 weeks outpatient follow-up with Hematology Dr. Prieto in 2-3 weeks please call to make appointments Assessment: per discharge summary
[2021-05-04 21:56] LABS: Homocysteine 8.5 umol/L (<11.4)
[2021-05-05 06:52] LABS: Cardiolipin IgG Ab <2.0 GPL-U/mL; Cardiolipin IgM Ab 2.6 MPL-U/mL
== END 2021-04-30 16:20 | disposition home or self-care (01) | DRG 45 ==
LOC: HO.ED 12:19 → HO.EDOVER 12:31
PROVIDERS: Physician Assistant; Admitting Provider Hospitalist; Emergency Provider Emergency Medicine; Visit Provider Hospitalist
DX: I63.511 Cerebral infarction due to unspecified occlusion or stenosis of right middle cerebral artery (principal); E11.9 Type 2 diabetes mellitus without complications; G83.24 Monoplegia of upper limb affecting left nondominant side; F17.210 Nicotine dependence, cigarettes, uncomplicated; R29.700 NIHSS score 0; I10 Essential (primary) hypertension; Z20.822 Contact with and (suspected) exposure to COVID-19; Z71.6 Tobacco abuse counseling; Z79.82 Long term (current) use of aspirin; Z79.899 Other long term (current) drug therapy
CPT/HCPCS: 36415; 70551; 72141; 80048; 80061; 80076; 80307; 81240; 81241; 83090; 83735; 85025; 85301; 85302; 85303; 85305; 85306; 85597; 85610; 85613; 85730; 86147; 87635; 93005; 93306; 97162; 97165; 99285; J1650

== ENCOUNTER → 2021-05-21 14:01 | Outpatient (BNVA) | payer OTHER, SELFPAY | PROVIDERS: PCP Nurse Practitioner Family; Referring Provider Nurse Practitioner Family; Visit Provider Internal Medicine Cardiovascular Disease | DX: I63.9 Cerebral infarction, unspecified (principal) | CPT/HCPCS: 99212 ==

== ENCOUNTER → 2021-06-16 09:59 | Outpatient (BNVA) | payer OTHER, SELFPAY | PROVIDERS: PCP Nurse Practitioner Family; Visit Provider Surgery Vascular Surgery | DX: I65.29 Occlusion and stenosis of unspecified carotid artery (principal) | CPT/HCPCS: 99212 ==

== ENCOUNTER → 2021-06-23 11:22 | Outpatient (REF) | payer OTHER, SELFPAY ==
--- NOTE | 2021-06-23 11:25 | HM_ITS ---
REQUESTING PHYSICIAN: Chapin Silva M.D. INDICATION: Cerebral infarction, unspecified. ENROLLMENT PERIOD: 06/23/2021, to 07/23/2021; 30 days. FINDINGS: In the above monitoring period, underlying rhythm was sinus. Rates ranged from 88 to 116 beats per minute. There are no arrhythmias documented during this time period. Some strips show changes in QRS polarity and T inversions of uncertain nature. CONCLUSION: No arrhythmias documented during monitoring period. Changes in QRS polarity/T inversion in some strips of uncertain significance. Rich Black MD HS/MODMalina / [id number] MTDD
== END ==
LOC: HO.CARD 11:22
PROVIDERS: Visit Provider Internal Medicine Cardiovascular Disease
DX: I63.9 Cerebral infarction, unspecified (principal)
CPT/HCPCS: 93270

== ENCOUNTER → 2021-09-17 14:18 | Outpatient (BNVA) | payer OTHER, SELFPAY | PROVIDERS: PCP Nurse Practitioner Family; Referring Provider Nurse Practitioner Family; Visit Provider Nurse Practitioner Family | DX: I65.21 Occlusion and stenosis of right carotid artery (principal); D68.9 Coagulation defect, unspecified; M54.12 Radiculopathy, cervical region; Z86.73 Personal history of transient ischemic attack (TIA), and cerebral infarction without residual deficits | CPT/HCPCS: 99212 ==

== ENCOUNTER 2021-11-17 16:01 | Emergency (ER) | payer OTHER, SELFPAY ==
--- NOTE | ~2021-11-17 | XR_ITS ---
EXAMINATION: XR FOOT, RIGHT CLINICAL INFORMATION: Right foot pain status post trauma. COMPARISON: None TECHNIQUE: AP, lateral, and oblique views of the right foot. FINDINGS: There is no acute fracture or dislocation. The joint spaces are unremarkable. The tarsal bones are normally aligned. The soft tissues are unremarkable. XR/XR foot RT min 3V IMPRESSION: Unremarkable right foot.
[2021-11-17 16:22] VITALS: BP 142/97; PULSE 89; RESP 18; TEMP 36.9; O2SAT 96; BMI 30.4
--- NOTE | 2021-11-17 17:29 | ED.EXTPRO ---
HPI - Extremity Problem General Chief complaint: Extremity Problem Stated complaint: foot inj/work inj Time Seen by Provider: 11/17/21 16:34 Source: patient Mode of arrival: ambulatory Limitations: no limitations History of Present Illness HPI Narrative: 36-year-old male presents to the ER for evaluation of right foot pain after he dropped a package with shelving that fell onto his right foot this morning. He works for [email or web address]. He states the box fell directly onto his right foot and was heavy, metal shelving. He was wearing his shoes sneakers and it did not break through the sneaker. He did not have any bleeding or wounds. He is ambulatory but has pain in the top of his foot that radiates to the plantar aspect of his foot. He also states when he walks the pain shoots up into his leg. No other injuries. MD Complaint: extremity pain Onset (ago): hour(s) Pain Consistency: intermittent Location: right and lower extremity Severity scale (1-10): 6 Quality: aching Radiation: proximal Relieving factors: immobilization and rest Exacerbating factors: walking and palpation Associated symptoms: denies other symptoms Related Data Home Medications Medication Instructions Recorded Confirmed aspirin 81 mg tablet,delayed 81 mg PO DAILY 06/16/21 09/19/21 release (Adult Aspirin Regimen) Allergies Allergy/AdvReac Type Severity Reaction Status Date / Time No Known Allergies Allergy Verified 09/17/21 14:35 Review of Systems Review of Systems: Constitutional: No Fever, No Chills Cardiovascular: No Chest Pain, No SOB Gastrointestinal: No Nausea, No Vomiting, No abdominal Pain Musculoskeletal:+ joint pain, + Myalgias Skin: No Skin Lesions, No rash Neuro: No Weakness, No Numbness Psych: No Anxiety/Panic, No Depression Heme/Lymph: + Bruising, No Lymphadenopathy PMFSH Past Medical History Medical History Carotid stenosis Coagulopathy Plantar fasciitis of right foot Pulmonary embolism Stroke Surgical History History of appendectomy Family History Family History Mother Mental health disorder Mother Diabetes Other Substance use disorder Social History Social History Household Members: Spouse and Children Housing: Apartment Are you a primary ambulatory care coordinator to a significant other at home: No Do you presently have visiting nurse or other home services: No Alcohol intake: current Alcohol intake frequency: holidays/special occasions only Alcohol type: beer and hard liquor Patient Tobacco Use Status: Current everyday Tobacco user Tobacco use type: Cigarette Cigarette Packs Per Day: 0.5 e-Cigarette/Vaping Use: Never Used Second Hand Smoke Exposure: Yes Substance Use Type: Marijuana Advance Directives: No Advance Directives Information Provided: No service: No Current occupational status: employed Current occupation: [employer] Cognitive needs: No Hearing needs: No Vision needs: Yes (glasses) Physical Exam Vital Signs: Vital Signs: Last Vital Signs Temp 98.4 F 11/17/21 16:22 Pulse 89 11/17/21 16:22 Resp 18 11/17/21 16:22 BP 142/97 H 11/17/21 16:22 Pulse Ox 96 11/17/21 16:22 O2 Del Method 11/17/21 16:22 BMI result Body Mass Index 30.4 Appearance: Alert. Oriented X3. No acute distress. HEENT: normal inspection CVS: Normal heart rate and rhythm. Pulses normal. Respiratory: No respiratory distress. Skin: Skin warm and dry. Normal skin color. Normal skin turgor. No rashes. Extremities: Right anterior foot with very mild swelling, small area of erythema over the area of the proximal 2nd or 3rd metatarsal. Mild early ecchymosis forming. No point tenderness. No open wounds. Normal range of motion of the foot, toes and ankle. 2+ DP pulse. Neuro: Oriented X 3. No motor deficit. No sensory deficit. Course Course Course Narrative: 36-year-old male presents to the ER for evaluation of right foot pain after heavy box fell onto his foot while he was at work earlier today. Exam is largely unremarkable, no point tenderness. Doubt acute fracture. X-rays pending. Reevaluation(s) Reevaluation #1: X-rays negative. Placed in Jair wrap for compression and support. Discussed the results and management of contusion. Stable for discharge home. Discharge Plan Discharge Clinical Impression: Contusion of right foot Patient Disposition: Home, Self-Care Instructions: Foot Contusion (ED) Additional Instructions: Your x-ray today was normal. Rest your foot when possible. Recommend JAIR wrap for support and compression. Use ice several times per day for the next 48 hours. You may bear weight as tolerated. Take Motrin and/or Tylenol as needed for pain. Follow up with your doctor as needed. Prescriptions: No Action aspirin [Adult Aspirin Regimen] 81 mg tablet,delayed release (DR/EC) 81 mg PO DAILY Referrals: [facility] [Provider Group] Stand Alone Forms: Work/School Release
== END 2021-11-17 18:06 | disposition home or self-care (01) ==
PROVIDERS: Emergency Provider Internal Medicine; PCP Nurse Practitioner Family
DX: S90.31XA Contusion of right foot, initial encounter (principal); W20.8XXA Other cause of strike by thrown, projected or falling object, initial encounter; F17.210 Nicotine dependence, cigarettes, uncomplicated; Y93.89 Activity, other specified; Y92.59 Other trade areas as the place of occurrence of the external cause; Y99.0 Civilian activity done for income or pay
CPT/HCPCS: 73630; 99283

== ENCOUNTER 2021-12-03 12:39 | Emergency (ER) | payer SELFPAY ==
[2021-12-03 12:46] VITALS: BP 140/58; PULSE 72; RESP 18; TEMP 36.6; O2SAT 100; BMI 29.5
[2021-12-03 13:12] LABS: MANUAL DIFF FLAG NO
[2021-12-03 13:17] LABS: Basophils Absolute Auto 0.1 X10*3/uL (0.0-0.2); Basophils Percent Auto 0.8 % (0-2); Eosinophils Absolute Auto 0.3 X10*3/uL (0.0-0.4); Hematocrit 48.6 % (42.0-52.0); Hemoglobin 16.5 g/dl (14.0-18.0); Imm Gran Abs Auto 0.01 X10*3/uL (0.00-0.03); Imm Gran Pct Auto 0.2 % (0.0-0.4); Lymphocytes Absolute Auto 1.5 X10*3/uL (1.2-4.9); Lymphocytes Percent Auto 23.3 % (20-40); Mean Corpuscular Hemoglobin 29.2 pg (27.0-33.0); Mean Corpuscular Volume 85.9 fL (80.0-98.0); Mean Platelet Volume 9.2 fL (9.4-12.4); Monocytes Absolute Auto 0.5 X10*3/uL (0.1-1.2); Neutrophils Absolute Auto 4.1 x10*3/uL (2.0-8.3); Neutrophils Percent Auto 62.7 % (45-73); Platelet Count 295 X10*3/uL (160-400); Red Blood Count 5.66 X10*6/uL (4.60-5.80); Red Cell Distribution Width 12.5 % (11.0-16.0); White Blood Count 6.6 X10*3/uL (4.8-10.8)
[2021-12-03 13:33] LABS: COVID-19 Test Negative (Negative)
[2021-12-03 13:33] LABS: Anion Gap 16 (12-20); Blood Urea Nitrogen 16 mg/dL (9-16); Calcium 10.2 mg/dL (8.4-10.2); Carbon Dioxide 25 mmol/L (22-29); Chloride 105 mmol/L (96-108); Creatinine Clr Calc Pharmacy 102.3; Estimated Glomerular Filt Rate > 60; Glucose Random 95 mg/dL (60-115); Potassium 4.9 mmol/L (3.3-5.1); Sodium 141 mmol/L (135-145)
[2021-12-03 14:02] VITALS: TEMP 36.8
[2021-12-03] MEDS: Acetaminophen 325 MG TABLET 975 MG PO (14:54)
[2021-12-03] MEDS: Ibuprofen 400 MG TABLET PO (14:54)
--- NOTE | 2021-12-03 14:55 | ED.HA ---
HPI - Headache General Chief Complaint: Upper Respiratory Symptoms Stated Complaint: headache, cold sweats, vomiting Time Seen by Provider: 12/03/21 14:04 Source: patient Mode of arrival: ambulatory History of Present Illness HPI Narrative: 36-year-old male who has a significant past medical history of right ICA occlusion and diagnosed with multiple infarcts in April of this year and is currently only taking aspirin. Patient states that he has never received any prescription for a statin and was unable to provide the physicians with whom he followed up. Patient states that he has had headache with nausea, vomiting as well as couple episodes of diarrhea, took 2 COVID-19 test which were negative but does have a positive exposure. On questioning patient regarding any neurologic findings he states he has a chronic numbness in his left 4th and 5th fingers which makes it difficult to right as he is left-handed but this is not new. Patient states that he has had visual disturbances that he describes as ?tunnel vision? that seemed to occur after he drinks caffeinated beverages. Otherwise he describes a headache in a band like pattern but otherwise denies any speech/auditory or unilateral numbness/tingling/weakness other than previously described. Related Data Home Medications Medication Instructions Recorded Confirmed aspirin 81 mg tablet,delayed 81 mg PO DAILY 06/16/21 09/19/21 release (Adult Aspirin Regimen) Previous Rx's Medication Instructions Recorded atorvastatin 40 mg tablet 40 mg PO DAILY #30 tabs 12/03/21 Allergies Allergy/AdvReac Type Severity Reaction Status Date / Time No Known Allergies Allergy Verified 09/17/21 14:35 Review of Systems Review of Systems: Pertinent positives and negatives as stated in HPI 10 point review of systems is otherwise negative. [facility] Past Medical History Source: nursing notes reviewed Medical History Carotid stenosis Coagulopathy Plantar fasciitis of right foot Pulmonary embolism Stroke Surgical History History of appendectomy Family History Family History Mother Mental health disorder Mother Diabetes Other Substance use disorder Social History Social History Household Members: Spouse and Children Housing: Apartment Are you a primary home health aide caregiver to a significant other at home: No Do you presently have visiting nurse or other home services: No Alcohol intake: current Alcohol intake frequency: holidays/special occasions only Alcohol type: beer and hard liquor Patient Tobacco Use Status: Current everyday Tobacco user Tobacco use type: Cigarette Cigarette Packs Per Day: 0.5 e-Cigarette/Vaping Use: Never Used Second Hand Smoke Exposure: Yes Substance Use Type: Marijuana Advance Directives: No Advance Directives Information Provided: No service: No Current occupational status: employed Current occupation: [employer] Cognitive needs: No Hearing needs: No Vision needs: Yes (glasses) Physical Exam Vital Signs: Vital Signs: Last Vital Signs Temp 98.3 F 12/03/21 14:02 Pulse 72 12/03/21 12:46 Resp 18 12/03/21 12:46 BP 140/58 H 12/03/21 12:46 Pulse Ox 100 12/03/21 12:46 O2 Del Method 12/03/21 12:46 BMI result Body Mass Index 29.5 VITAL SIGNS: Reviewed. GENERAL: Well developed, well nourished, in no acute distress. HEAD: Normocephalic/atraumatic EYES: PERRLA, EOMI EARS: Ext canals without abnormality OROPHARYNX: no oral lesions noted, posterior pharynx clear LUNGS: Normal breath sounds. No adventitious sounds or accessory muscle use. SpO2<100> CARDIOVASCULAR: Regular rate and rhythm without noted murmurs, no JVD or lower extremity edema. ABDOMEN: Soft, non-tender, non-distended with bowel sounds. MUSCULOSKELETAL: No tenderness, deformities, or effusions noted on gross inspection. EXTREMITIES: No cyanosis, clubbing or edema. SKIN: Inspection of the skin reveals no rashes NEUROLOGIC: Alert and oriented x 4. Strength and sensation to light touch were grossly intact x 4, no facial asymmetry, no pronator drift, cranial nerves 2-12 grossly intact.. Course Course Course Narrative: 36-year-old male with history and clinical presentation consistent with most likely a tension headache, there are no focal deficits other than his baseline residual numbness in the 4th and 5th fingers of the left hand. I reviewed all documentation within patient's chart and he does have an elevated protein C, I consult with Dr. Prieto and she states that she would be more than happy to see him in the office and that the aspirin that he is currently on is all that is recommended at this time. Patient has an appointment for repeat ultrasound, he was provided with a referral to see both Dr. Prieto as well as Dr. Sage and I also provided him with a referral to follow-up with Dr. Man, neurology, for the chronic headaches after his multiple infarcts in April. Patient has been informed and advised of all of these results and plans and understands that he will be getting a prescription for atorvastatin and he should start taking this medication as directed in conjunction with the aspirin. On re-evaluation he is feeling better after the combination of Tylenol and ibuprofen. MDM - Headache Lab Data Result diagrams: 12/03/21 13:06 12/03/21 13:06 Labs: Lab Results 12/03/21 12/03/21 12/03/21 Range/Units 12:50 13:06 13:06 WBC 6.6 (4.8-10.8) X10*3/uL RBC 5.66 (4.60-5.80) X10*6/uL Hgb 16.5 (14.0-18.0) g/dl Hct 48.6 (42.0-52.0) % MCV 85.9 (80.0-98.0) fL MCH 29.2 (27.0-33.0) pg MCHC 34.0 (31.0-36.0) g/dl RDW 12.5 (11.0-16.0) % Plt Count 295 (160-400) X10*3/uL MPV 9.2 L (9.4-12.4) fL Immature Gran % (Auto) 0.2 (0.0-0.4) % Neut % (Auto) 62.7 (45-73) % Lymph % (Auto) 23.3 (20-40) % [place] % (Auto) 8.0 (2-11) % Eos % (Auto) 5.0 H (0-4) % Baso % (Auto) 0.8 (0-2) % Lymph # (Auto) 1.5 (1.2-4.9) X10*3/uL [place] # (Auto) 0.5 (0.1-1.2) X10*3/uL Eos # (Auto) 0.3 (0.0-0.4) X10*3/uL Baso # (Auto) 0.1 (0.0-0.2) X10*3/uL Abs Immat Gran (auto) 0.01 (0.00-0.03) X10*3/uL Absolute Neuts (auto) 4.1 (2.0-8.3) x10*3/uL Absolute Nucleated RBC 0.000 (0.0-0.012) X10*3/uL Nucleated RBC % (auto) 0.0 (0.0-0.2) /100WBC Sodium 141 (135-145) mmol/L Potassium 4.9 (3.3-5.1) mmol/L Chloride 105 (96-108) mmol/L Carbon Dioxide 25 (22-29) mmol/L Anion Gap 16 (12-20) BUN 16 (9-16) mg/dL Creatinine 1.10 (0.5-1.4) mg/dL Estim Creat Clear Calc 102.3 Estimated GFR > 60 Random Glucose 95 (60-115) mg/dL Calcium 10.2 D (8.4-10.2) mg/dL TSH 0.77 (0.32-4.0) uIU/mL COVID-19 (BETO) Negative (Negative) COVID-19 Clin Com See Note Discharge Plan Discharge Clinical Impression: Headache, History of CVA with residual deficit Patient Disposition: Home, Self-Care Instructions: Tension Headache (ED), General Headache (ED) Additional Instructions: 1. Resume all home medications as prescribed. Recommend combination of Tylenol and ibuprofen at the same time for your headaches, combining these medications will not harm you. 2. Please set up an appointment with the consultants that you have a referral for as well as calling your primary care doctor for re-evaluation and continuation of your atorvastatin. Stop smoking and stop drinking caffeinated beverages. Return to the ER for any worsening symptoms. Prescriptions: New atorvastatin 40 mg tablet 40 mg PO DAILY Qty: 30 0RF No Action aspirin [Adult Aspirin Regimen] 81 mg tablet,delayed release (DR/EC) 81 mg PO DAILY Referrals: Sherwin Man MD [Physician] - (Had CVA in 04/2021, on ASA, Protein C was elevated, set up appts with Dr Prieto and Dr Sage (pt has Rt ICA occlusion). Please eval and treat for persistent headaches since this event in Apr 2021. ) Jose Sage MD [Physician] - (Rt ICA occlusion, seen by you in 05/2021. Wasn't on a statin but I've restarted. I think has f/u US in the next 2 weeks.) Jazmin Prieto MD [Physician] - (Had CVA in 04/2021, on ASA, Protein C>200)
[2021-12-03 15:43] LABS: Thyroid Stimulating Hormone 0.77 uIU/mL (0.32-4.0)
== END 2021-12-03 18:07 | disposition home or self-care (01) ==
PROVIDERS: Emergency Provider Student in an Organized Health Care Education/Training Program; PCP Nurse Practitioner Family
DX: R51.9 Headache, unspecified (principal); M79.10 Myalgia, unspecified site; F17.210 Nicotine dependence, cigarettes, uncomplicated; Z20.822 Contact with and (suspected) exposure to COVID-19; Z71.6 Tobacco abuse counseling; Z79.899 Other long term (current) drug therapy
CPT/HCPCS: 36415; 80048; 84443; 85025; 87635; 99283; 99284

== ENCOUNTER 2022-03-03 21:21 | Emergency (ER) | payer SELFPAY | END 2022-03-03 22:24 | disposition left against medical advice (07) | PROVIDERS: Emergency Provider Emergency Medicine; PCP Nurse Practitioner Family | DX: Z04.2 Encounter for examination and observation following work accident (principal) ==

== ENCOUNTER 2022-04-22 15:04 | Outpatient (REF) | payer OTHER, SELFPAY ==
--- NOTE | ~2022-04-22 | US_ITS ---
EXAMINATION: US EXTRACRANIAL CAROTID DUPLEX, BILATERAL CLINICAL INFORMATION: Known carotid occlusion. COMPARISON: CT angiogram of the head and neck 04/28/2021. TECHNIQUE: Real-time ultrasound and Doppler techniques (integrating B-mode 2-D vascular images, Doppler spectral analysis and color-flow Doppler imaging) were utilized to interrogate the extracranial carotid arteries, the vertebral arteries and proximal subclavian arteries bilaterally. The degree of stenosis is determined by criteria similar to NASCET. FINDINGS: Right Side: 1. The common and internal carotid artery are occluded. 4. There is flow seen in the external carotid artery with a PSV of 141 cm/s. 5. The vertebral artery shows antegrade flow. 6. The subclavian artery waveforms are normal. Left Side: 1. There is no atherosclerotic plaque seen in the bifurcation/proximal ICA region. 2. The common carotid artery PSV proximally is 112 cm/s and distally 86 cm/s. 3. The proximal internal carotid artery velocities are 110 cm/s systolic and 57 cm/s diastolic. 4. The proximal external carotid artery PSV is 215 cm/s. 5. The vertebral artery shows antegrade flow. 6. The subclavian artery waveforms are normal. US/US carotid duplex BI IMPRESSION: 1. RIGHT: There is occlusion of the right common and internal carotid arteries. At the time of the prior CT angiogram, the common carotid artery was patent but the internal carotid artery was occluded 2. LEFT: Normal left internal carotid artery without atherosclerotic plaque or hemodynamically significant stenosis.
== END 2022-04-22 15:05 | disposition home or self-care (01) ==
LOC: HO.US 15:04
PROVIDERS: Visit Provider Surgery Vascular Surgery
DX: I65.23 Occlusion and stenosis of bilateral carotid arteries (principal)
CPT/HCPCS: 93880

== ENCOUNTER → 2022-05-20 15:02 | Outpatient (BNVA) | payer OTHER, SELFPAY | PROVIDERS: PCP Nurse Practitioner Family; Visit Provider Surgery Vascular Surgery | DX: I65.29 Occlusion and stenosis of unspecified carotid artery (principal) | CPT/HCPCS: 99212 ==

== ENCOUNTER 2022-09-30 15:24 | Emergency (ER) | payer OTHER, SELFPAY ==
--- NOTE | ~2022-09-30 | CT_ITS ---
EXAMINATION: CT HEAD WITHOUT CONTRAST CLINICAL INFORMATION: Fall, head strike, on anticoagulants. COMPARISON: MR brain 04/29/2021. CTA head and neck to 11/07/2021. TECHNIQUE: Contiguous axial imaging was performed from the skull base to vertex without intravenous administration of contrast. This CT examination was performed using dose optimization techniques as appropriate, variously including the following: *Automated exposure control *Adjustment of mA and/or kV according to patient size (this includes techniques or standardized protocols for targeted exams where dose is matched to indication/reason for exam; i.e. extremities or head) *Use of iterative reconstruction technique DLP: 639 mGy-cm FINDINGS: Multiple chronic infarctions in the right frontal lobe with associated encephalomalacia/gliosis. No evidence of acute intracranial hemorrhage or edematous infarction. A few foci of hypoattenuation in the periventricular and deep white matter are consistent with mild microangiopathy. Proportional prominence of the ventricles and sulcal spaces. No evidence for obstructive hydrocephalus. No abnormal mass effect or midline shift. No extra-axial fluid collections. No acute soft tissue or osseous abnormalities. Significant mucosal thickening of the left sphenoidal sinus as well as opacification of several ethmoid air cells. No air-fluid levels. The mastoids and middle ear cavities are clear. CT/CT head/brain wo IV con IMPRESSION: Multiple regions of encephalomalacia and gliosis in the right frontal lobe sequela of multiple infarctions noted on prior examinations from April 2021. Superimposed small acute infarctions are difficult to exclude, and if focal neurologic deficits or an acute cerebrovascular accident is clinically suspected, further evaluation with an MR of the brain is recommended. No edematous infarction or intraparenchymal hemorrhage. No extra-axial collection. Paranasal sinus disease.
--- NOTE | 2022-09-30 15:31 | ED_ITS ---
HPI - General Adult General Chief complaint: Neuro Symptoms/Deficit Stated complaint: weakness Time Seen by Provider: 09/30/22 19:41 Source: patient Mode of arrival: ambulatory Limitations: no limitations History of Present Illness HPI narrative: Patient is a 37-year-old male with history of CVA in 2021, coagulopathy, carotid stenosis presenting to the emergency department with complaint of generalized weakness for the past 2 weeks, cold sweats at night, feels chills when he gets home from work. Is not currently anticoagulated. States if he is inside he feels ok but if he goes out into the sun he feels lightheaded. Has been using liquid IV but is still having leg cramping. Reports dull intermittent headache, Reports nausea and some vomiting. 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 Patient declines any new weakness or numbness, no photophobia, no neck stiffness. Related Data Home Medications Medication Instructions Recorded Confirmed aspirin 81 mg tablet,delayed 81 mg PO DAILY 06/16/21 07/08/22 release (Adult Aspirin Regimen) Previous Rx's Medication Instructions Recorded atorvastatin 40 mg tablet 40 mg PO DAILY #90 tabs 07/05/22 sildenafil 25 mg tablet 25 mg PO DAILY PRN sexual activity 07/08/22 #14 tabs trazodone 50 mg tablet 25 mg PO BEDTIME PRN sleep #7 tabs 07/08/22 Allergies Allergy/AdvReac Type Severity Reaction Status Date / Time tomato AdvReac Mild Hives Verified 07/08/22 11:06 Review of Systems Review of Systems: All other systems are reviewed and are negative Constitutional: Reports as per HPI and Reports no additional constitutional complaints Eyes: Reports as per HPI and Reports no additional eye complaints Reports system reviewed and no additional complaints, except as documented Cardiovascular: Reports as per HPI and Reports no additional cardiovascular complaints Respiratory: Reports as per HPI and Reports no additional respiratory complaints Gastrointestinal: Reports as per HPI and Reports no additional gastrointestinal complaints Genitourinary: Reports no additional female genitourinary complaints Musculoskeletal: Reports no additional musculoskeletal complaints Skin/Breast: Reports system reviewed and no additional complaints, except as do cu Psychiatric: Reports no additional psychiatric complaints Endocrine: Reports no additional endocrine complaints Hematologic/Lymphatic: Reports no additional hematologic/lymphatic complaints Allergic/Immunologic: Reports no additional allergic/immunologic complaints Reports system reviewed and no additional complaints, except as documented and Reports Abnormal speech present [facility] Past Medical History Medical History Carotid stenosis Coagulopathy Encounter to establish care Plantar fasciitis of right foot Pulmonary embolism Stroke Surgical History History of appendectomy Family History Family History Mother Mental health disorder Mother Diabetes Other Substance use disorder Social History Social History Household Members: Spouse and Children Housing: Apartment Are you a primary home care provider to a significant other at home: No Do you presently have visiting nurse or other home services: No Alcohol intake: current Alcohol intake frequency: holidays/special occasions only Alcohol type: beer and hard liquor Patient Tobacco Use Status: Current everyday Tobacco user Tobacco use type: Cigarette Cigarette Packs Per Day: 0.5 e-Cigarette/Vaping Use: Never Used Second Hand Smoke Exposure: Yes Substance Use Type: Marijuana service: No Current occupational status: employed Current occupation: [employer] Cognitive needs: No Hearing needs: No Vision needs: Yes (glasses) Physical Exam ED Vital Signs: Vital Signs - 24 hr 09/30/22 15:35 09/30/22 19:48 Temperature 98.2 F Pulse Rate 74 68 Respiratory Rate 18 16 Blood Pressure 196/107 H 162/108 H Pulse Oximetry 99 99 Oxygen Delivery Method Room Air Room Air BMI result Body Mass Index 30.4 Vital signs have been reviewed as appeared to be correct. Blood pressure normal. Heart rate normal. Respiration rate normal. Temperature normal. Oxygen saturation normal. Appearance: Alert. Oriented X3. No acute distress. Head: Normal external exam. Normocephalic. Atraumatic. No Ambriz signs noted. No raccoon eyes noted Eyes: PERRLA. EOMI. Conjunctiva and sclera normal. Eyelids normal. ENT: TM's Normal. Pharynx normal. Uvula midline. Moist mucous membranes. No trismus noted. No drooling noted. No muffled voice noted. Neck: Normal inspection. Neck supple. FROM. No adenopathy. Thyroid Normal. No meningeal signs. No neck mass noted. CVS: Normal heart rate and rhythm. Heart sound normal. No murmurs noted. Pulses normal throughout. Respiratory: No respiratory distress. Painless inspiration. Breath sounds normal. No wheezes/rales/rhonchi noted. Chest nontender. No accessory muscle usage noted or decreased air movement noted. Abdomen: Soft and nontender. Bowel sounds normal in all 4 quadrants. No distention noted. No organomegaly noted. No visible injury noted. Back: No CVA tenderness. Full range of motion noted. Skin: Skin warm and dry. Normal skin color. Normal skin turgor. No rashes/lesions/lacerations noted. Extremities: No lower extremity edema. Extremities exhibit normal range of motion. Extremities nontender. Neuro: Oriented X 3. Cranial nerve exam: II-XII are grossly intact No motor deficit. No sensory deficit. Reflexes normal. NIH Stroke Scale Time: 20:02 Level of Consciousness: Alert Level of Consciousness Questions: Answers both questions correctly Level of Consciousness Commands: Performs both tasks correctly Best Gaze: Normal Visual: No visual loss Facial Palsy: Normal Motor Arm (Right): No drift Motor Arm (Left): No drift Motor Leg (Right): No drift Motor Leg (Left): No drift Limb Ataxia: Absent Sensory: Normal Best Language: No aphasia Dysarthia: Normal Extinction and Inattention: No abnormality Score: 0 Course Course Course Narrative: This is a rapid medical exam: Additional HPI, ROS, PE not included below will be deferred to primary provider. Patient is a 37-year-old male with history of CVA in 2021, coagulopathy, carotid stenosis presenting to the emergency department with complaint of generalized weakness for the past 2 weeks, cold sweats at night, feels chills when he gets home from work. Is not currently anticoagulated. States if he is inside he feels ok but if he goes out into the sun he feels lightheaded. Has been using liquid IV but is still having leg c ramping. Reports dull headache, intermittent blurred vision, tunnel vision. Reports nausea and some vomiting. 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 Hypertensive in triage. Plan: EKG, labs including tick panel, UA, CT head Reevaluation(s) Reevaluation #1: 37-year-old male history of stroke last year came in with generalized weakness, no focal weakness or sign of stroke. CT head is showing multiple region of encephalomalacia and gliosis in the frontal lobe which appears to be present on older CT scan done patient was offered to be admitted and get a full neurological evaluation while inpatient patient declined admission to the hospital and wanted to be discharged patient was instructed to call Neurology and make an appointment. The patient thinks his symptoms is related to dehydration and heat exhaustion. Time: 20:05 Medical Decision Making Differential Diagnosis Differential Diagnoses: The differential diagnosis associated with the presentation includes (Dehydration, heat exhaustion, electrolyte abnormality, acute renal insufficiency, severe anemia, intracranial bleed, CVA.) Admission/Observation Consideration of admission/observation: Escalation of care including a dmission/observation considered Lab Data MDM Lab Attestation statement: I reviewed the patient's lab results. 09/30/22 16:04 09/30/22 16:04 Labs: Lab Results 09/30/22 09/30/22 09/30/22 Range/Units 16:04 16:04 16:04 WBC 9.0 (4.8-10.8) X10*3/uL RBC 5.30 (4.60-5.80) X10*6/uL Hgb 15.4 (14.0-18.0) g/dl Hct 46.3 (42.0-52.0) % MCV 87.4 (80.0-98.0) fL MCH 29.1 (27.0-33.0) pg MCHC 33.3 (31.0-36.0) g/dl RDW 12.1 (11.0-16.0) % Plt Count 248 (160-400) X10*3/uL MPV 9.3 L (9.4-12.4) fL Immature Gran % (Auto) 0.3 (0.0-0.4) % Neut % (Auto) 59.9 (45-73) % Lymph % (Auto) 27.3 (20-40) % [place]ac % (Auto) 7.0 (2-11) % Eos % (Auto) 4.7 H (0-4) % Baso % (Auto) 0.8 (0-2) % Lymph # (Auto) 2.5 (1.2-4.9) X10*3/uL [place] # (Auto) 0.6 (0.1-1.2) X10*3/uL Eos # (Auto) 0.4 (0.0-0.4) X10*3/uL Baso # (Auto) 0.1 (0.0-0.2) X10*3/uL Abs Immat Gran (auto) 0.03 (0.00-0.03) X10*3/uL Absolute Neuts (auto) 5.4 (2.0-8.3) x10*3/uL Absolute Nucleated RBC 0.000 (0.0-0.012) X10*3/uL Nucleated RBC % (auto) 0.0 (0.0-0.2) /100WBC PT (10.0-13.1) SEC INR (0.9-1.1) Sodium 138 (135-145) mmol/L Potassium 4.2 (3.3-5.1) mmol/L Chloride 106 (96-108) mmol/L Carbon Dioxide 26 (22-29) mmol/L Anion Gap 10 L (12-20) BUN 7 L (9-16) mg/dL Creatinine 0.86 (0.5-1.4) mg/dL Estim Creat Clear Calc 127.3 Estimated GFR > 60 Random Glucose 129 H (60-115) mg/dL Calcium 9.6 (8.4-10.2) mg/dL Magnesium 2.0 (1.6-2.6) mg/dL Total Bilirubin 0.3 (0.0-1.0) mg/dL AST 24 (5-37) U/L ALT 31 (0-40) U/L Alkaline Phosphatase 75 (39-117) U/L Troponin I High Sens 2.7 (<3.5-35.0) ng/L Total Protein 7.3 (6.5-8.0) g/dL Albumin 4.4 (3.5-5.0) g/dL Urine Color Urine Appearance Urine pH (5.0-9.0) Ur Specific Dyer (1.005-1.025) Urine Protein (Neg-Trace) mg/dL Urine Glucose (UA) (Negative) mg/dL Urine Ketones (Negative) mg/dL Urine Blood (Negative) Urine Nitrite (Negative) Ur Leukocyte Esterase (Negative) 09/30/22 09/30/22 Range/Units 16:04 16:04 WBC (4.8-10.8) X10*3/uL RBC (4.60-5.80) X10*6/uL Hgb (14.0-18.0) g/dl Hct (42.0-52.0) % MCV (80.0-98.0) fL MCH (27.0-33.0) pg MCHC (31.0-36.0) g/dl RDW (11.0-16.0) % Plt Count (160-400) X10*3/uL MPV (9.4-12.4) fL Immature Gran % (Auto) (0.0-0.4) % Neut % (Auto) (45-73) % Lymph % (Auto) (20-40) % [place]ac % (Auto) (2-11) % Eos % (Auto) (0-4) % Baso % (Auto) (0-2) % Lymph # (Auto) (1.2-4.9) X10*3/uL [place] # (Auto) (0.1-1.2) X10*3/uL Eos # (Auto) (0.0-0.4) X10*3/uL Baso # (Auto) (0.0-0.2) X10*3/uL Abs Immat Gran (auto) (0.00-0.03) X10*3/uL Absolute Neuts (auto) (2.0-8.3) x10*3/uL Absolute Nucleated RBC (0.0-0.012) X10*3/uL Nucleated RBC % (auto) (0.0-0.2) /100WBC PT 10.1 (10.0-13.1) SEC INR 0.9 (0.9-1.1) Sodium (135-145) mmol/L Potassium (3.3-5.1) mmol/L Chloride (96-108) mmol/L Carbon Dioxide (22-29) mmol/L Anion Gap (12-20) BUN (9-16) mg/dL Creatinine (0.5-1.4) mg/dL Estim Creat Clear Calc Estimated GFR Random Glucose (60-115) mg/dL Calcium (8.4-10.2) mg/dL Magnesium (1.6-2.6) mg/dL Total Bilirubin (0.0-1.0) mg/dL AST (5-37) U/L ALT (0-40) U/L Alkaline Phosphatase (39-117) U/L Troponin I High Sens (<3.5-35.0) ng/L Total Protein (6.5-8.0) g/dL Albumin (3.5-5.0) g/dL Urine Color Yellow Urine Appearance Clear Urine pH 6.5 (5.0-9.0) Ur Specific Dyer 1.020 (1.005-1.025) Urine Protein Negative (Neg-Trace) mg/dL Urine Glucose (UA) Negative (Negative) mg/dL Urine Ketones Negative (Negative) mg/dL Urine Blood Negative (Negative) Urine Nitrite Negative (Negative) Ur Leukocyte Esterase Negative (Negative) Independent Interpretation I performed an independent interpretation of an: CT Scan (Head CT:Multiple regions of encephalomalacia and gliosis in the right frontal lobe sequela of multiple infarctions noted on prior examinations from April 2021. Superimposed small acute infarctions are difficult to exclude, and if focal neurologic deficits or an acute cerebrovascular accident is c) Radiology Impression Discussion of test interpretation with radiology: I have reviewed the radi ologist's reading. Discharge Plan Discharge Clinical Impression: Dehydration Patient Disposition: Home, Self-Care Instructions: Dehydration (ED) Prescriptions: No Action atorvastatin 40 mg tablet 40 mg PO DAILY Qty: 90 0RF aspirin [Adult Aspirin Regimen] 81 mg tablet,delayed release (DR/EC) 81 mg PO DAILY sildenafil 25 mg tablet 25 mg PO DAILY PRN (Reason: sexual activity) Qty: 14 0RF Rx Instructions: administer 30 minutes to 4 hours before activity trazodone 50 mg tablet 25 mg PO BEDTIME PRN (Reason: sleep) Qty: 7 0RF Referrals: Sherwin Man MD [Physician] - Stand Alone Forms: Work/School Release
[2022-09-30 15:35] VITALS: BP 196/107; PULSE 74; RESP 18; TEMP 36.8; O2SAT 99; BMI 30.4
--- NOTE | 2022-09-30 15:36 | ECG_ITS ---
Test Reason : near syncope Blood Pressure : / mmHG Vent. Rate : 071 BPM Atrial Rate : 071 BPM P-R Int : 178 ms QRS Dur : 084 ms QT Int : 374 ms P-R-T Axes : 016 008 011 degrees QTc Int : 406 ms Normal sinus rhythm with sinus arrhythmia Minimal voltage criteria for LVH, may be normal variant ( R in aVL ) Borderline ECG When compared with ECG of 29-APR-2021 10:09, No significant change was found Referred By: Dawn Wilkerson Electronically Signed By:HEMALATHA BRUNSON MD
[2022-09-30 16:14] LABS: MANUAL DIFF FLAG NO
[2022-09-30 16:17] LABS: Appearance Urine Clear; Basophils Absolute Auto 0.1 X10*3/uL (0.0-0.2); Basophils Percent Auto 0.8 % (0-2); Color Urine Yellow; Eosinophils Absolute Auto 0.4 X10*3/uL (0.0-0.4); Eosinophils Percent Auto 4.7 % (0-4); Glucose Urine UA Negative (Negative); Hematocrit 46.3 % (42.0-52.0); Hemoglobin 15.4 g/dl (14.0-18.0); Imm Gran Abs Auto 0.03 X10*3/uL (0.00-0.03); Imm Gran Pct Auto 0.3 % (0.0-0.4); Leukocyte Esterase Urine Negative (Negative); Lymphocytes Absolute Auto 2.5 X10*3/uL (1.2-4.9); Lymphocytes Percent Auto 27.3 % (20-40); Mean Corpuscular HGB Conc 33.3 g/dl (31.0-36.0); Mean Corpuscular Hemoglobin 29.1 pg (27.0-33.0); Mean Corpuscular Volume 87.4 fL (80.0-98.0); Mean Platelet Volume 9.3 fL (9.4-12.4); Monocytes Absolute Auto 0.6 X10*3/uL (0.1-1.2); Neutrophils Absolute Auto 5.4 x10*3/uL (2.0-8.3); Neutrophils Percent Auto 59.9 % (45-73); Nitrite Urine Negative (Negative); PH 6.5 (5.0-9.0); Platelet Count 248 X10*3/uL (160-400); Red Cell Distribution Width 12.1 % (11.0-16.0); Urine Blood Negative (Negative); Urine Ketones Negative (Negative); Urine Protein Negative (Neg-Trace)
[2022-09-30 16:24] LABS: INTERNATIONAL NORM RATIO 0.9 (0.9-1.1); Prothrombin Time 10.1 SEC (10.0-13.1)
[2022-09-30 16:30] LABS: Alanine Aminotransferase 31 U/L (0-40); Albumin Level 4.4 g/dL (3.5-5.0); Alkaline Phosphatase 75 U/L (39-117); Anion Gap 10 (12-20); Aspartate Amino Transferase 24 U/L (5-37); Bilirubin Total 0.3 mg/dL (0.0-1.0); Blood Urea Nitrogen 7 mg/dL (9-16); Calcium 9.6 mg/dL (8.4-10.2); Carbon Dioxide 26 mmol/L (22-29); Chloride 106 mmol/L (96-108); Creatinine Clr Calc Pharmacy 127.3; Estimated Glomerular Filt Rate > 60; Glucose Random 129 mg/dL (60-115); Potassium 4.2 mmol/L (3.3-5.1); Sodium 138 mmol/L (135-145); Total Protein 7.3 g/dL (6.5-8.0)
[2022-09-30 16:37] LABS: Troponin-I High Sensitivity 2.7 ng/L (<3.5-35.0)
[2022-09-30 19:48] VITALS: BP 162/108; PULSE 68; RESP 16; O2SAT 99
--- NOTE | 2022-09-30 19:48 | PC.NURSE ---
This bond underwriter assumed care of this Pt at this time. 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 Pt ambulating independently with steady gait, reports leg cramps, headache, and sensitive to heat x 2 weeks, reports working outdoors and feeling very thirsty .
[2022-10-05 02:27] LABS: A. Phagocytphilium DNA,RT-PCR NOT DETECTED (NOT DETECTED); Babesia Microti DNA, RT-PCR NOT DETECTED (NOT DETECTED); Borrelia Miyamotoi,DNA RT-PCR NOT DETECTED (NOT DETECTED); E.Chaffeensis DNA RT-PCR NOT DETECTED (NOT DETECTED); Lyme(Borrelia ssp)DNA RT-PCR NOT DETECTED (NOT DETECTED)
== END 2022-09-30 20:18 | disposition home or self-care (01) ==
PROVIDERS: Registered Nurse Emergency; Emergency Provider Emergency Medicine
DX: E86.0 Dehydration (principal); R51.9 Headache, unspecified; R53.1 Weakness; I49.8 Other specified cardiac arrhythmias; F17.210 Nicotine dependence, cigarettes, uncomplicated; Z71.6 Tobacco abuse counseling; Z79.899 Other long term (current) drug therapy
CPT/HCPCS: 36415; 70450; 80053; 81003; 83735; 84484; 85025; 85610; 87798; 87801; 93005; 99284

== ENCOUNTER → 2022-09-30 15:36 | Outpatient (BNV) | payer OTHER, SELFPAY | PROVIDERS: Emergency Provider Emergency Medicine; Visit Provider Internal Medicine Cardiovascular Disease | DX: R55 Syncope and collapse (principal) | CPT/HCPCS: 93010 ==

== ENCOUNTER 2022-10-05 15:09 | Emergency (ER) | payer OTHER, SELFPAY ==
--- NOTE | ~2022-10-05 | CT_ITS ---
EXAMINATION: CT ANGIOGRAM OF THE CHEST WITH AND WITHOUT CONTRAST (CT PULMONARY ANGIOGRAM FOR PE) CLINICAL INFORMATION: Reason for Exam elevated d-dimer(278), chest pain, prior PE COMPARISON: 09/24/2019 TECHNIQUE: Prior to contrast administration, noncontrast localization images were obtained. Subsequently, multidetector volumetric imaging was performed from the thoracic inlet to below the diaphragms following the administration of 65 mL Omnipaque 350 intravenous contrast. No contrast reaction reported Sagittal, coronal, and MIP oblique sagittal reformatted images were obtained on the CT workstation, uploaded to PACS, and reviewed. This CT examination was performed using dose optimization techniques as appropriate, variously including the following: *Automated exposure control *Adjustment of mA and/or kV according to patient size (this includes techniques or standardized protocols for targeted exams where dose is matched to indication/reason for exam; i.e. extremities or head) *Use of iterative reconstruction technique Total exam dose-length product 236 mGy-cm FINDINGS: QUALITY OF STUDY/CONTRAST BOLUS: Satisfactory. PULMONARY ARTERIES: No filling defects are seen in the main, lobar, or segmental pulmonary arteries to suggest the presence of pulmonary emboli. THORACIC AORTA: No aneurysm or dissection. LUNG: No regions of consolidation bilaterally. PLEURA: No pleural effusion or pneumothorax. MEDIASTINUM: The visualized thyroid gland is unremarkable. There are subcentimeter mediastinal lymph nodes within the range of normal variation. Cardiac size is within normal limits; no pericardial effusion. CORONARY ARTERY CALCIFICATION: None visualized on this study. CHEST WALL/AXILLA: No axillary or internal mammary lymphadenopathy. OSSEOUS STRUCTURES: No acute or suspicious osseous abnormality. UPPER ABDOMEN: Unremarkable. No reflux of contrast into the hepatic veins to suggest elevated right heart pressures. CT/CT angio chest PE protocol IMPRESSION: No pulmonary embolus identified. VTE: negative.
--- NOTE | ~2022-10-05 | US_ITS ---
EXAMINATION: US VENOUS WITH DOPPLER UPPER EXTREMITY, LEFT CLINICAL INFORMATION: Left forearm pain and swelling COMPARISON: None available. TECHNIQUE: Ultrasound of the upper extremity is performed using compression sonography and color and pulse Doppler flow with assessment of augmentation of flow. There is also imaging and Doppler assessment of the jugular and subclavian veins. Spectral analysis with color-flow imaging is performed. FINDINGS: Respiratory variation, normal compression, and augmented flow are noted throughout the upper extremity including the axillary, brachial, basilic, cephalic, cubital, and radial and ulnar veins. There is normal flow in the internal jugular and subclavian veins. There is no visible deep or superficial thrombophlebitis. If the patient's symptoms progress, a followup ultrasound in 5 -7 days might be of value to exclude proximal propagation from a nonvisualized distal arm vein. US/US venous duplex UE LT IMPRESSION: No DVT demonstrated in the left upper extremity.
--- NOTE | ~2022-10-05 | US_ITS ---
EXAMINATION: US VENOUS ULTRASOUND WITH DOPPLER LOWER EXTREMITY, BILATERAL CLINICAL INFORMATION: Pain. COMPARISON: DVT ultrasound right lower extremity 01/20/2020. TECHNIQUE: Ultrasound of the deep veins is performed from the hip to the calf with compression sonography and color and pulse Doppler assessment. Spectral analysis with color-flow imaging is performed. FINDINGS: RIGHT: There is normal venous compression and respiratory variation and augmented flow. The visualized common femoral vein, superficial femoral vein, profunda femoral vein, popliteal vein, and the trifurcation region shows no evidence of deep venous thrombosis. There is no significant popliteal fossa cyst. LEFT: There is normal venous compression and respiratory variation and augmented flow. The visualized common femoral vein, superficial femoral vein, profunda femoral vein, popliteal vein, and the trifurcation region shows no evidence of deep venous thrombosis. There is no significant popliteal fossa cyst. If the patient's symptoms persist, followup ultrasound in 5 days 7 days might be of value to exclude proximal propagation from a non-visualized calf vein. US/US venous duplex LE BI IMPRESSION: No DVT demonstrated in the bilateral lower extremities.
--- NOTE | ~2022-10-05 | XR_ITS ---
EXAMINATION: XR CHEST CLINICAL INFORMATION: Chest pain COMPARISON: Chest x-ray 08/12/2020 TECHNIQUE: 2 views of the chest were obtained. FINDINGS: No significant abnormality is noted involving the heart, lungs, mediastinum, bony thorax or soft tissues. XR/XR chest 2V IMPRESSION: Unremarkable examination.
[2022-10-05 15:15] VITALS: BP 185/100; PULSE 84; RESP 18; TEMP 36.7; O2SAT 97; BMI 28.1
--- NOTE | 2022-10-05 15:15 | ED.GENADULT ---
HPI - General Adult General Chief complaint: General Medical Stated complaint: pain in left arm and leg Time Seen by Provider: 10/05/22 21:49 Source: patient Mode of arrival: ambulatory Limitations: no limitations History of Present Illness HPI narrative: Patient is a 29-year-old male with history of CVA in 2021, coagulopathy, PE in 2004, not currently anticoagulated, only takes baby aspirin daily, carotid stenosis presenting to the emergency department with complaint of intermittent vomiting, headaches, confusion, sweats/chills at night, for the past several weeks. Also reports left forearm pain and swelling, bilateral calf pain for the past several days. Was seen in this ED on 09/30 and offered admission for full neurological evaluation, as CT head showed multiple regions of encephalomalacia and gliosis in the frontal lobe which also appeared to be present on older CT scans, however, patient declined admission at that time. Patient did schedule an appointment with Dr. Man for 10/20 and with a new PCP for 10/27, but is concerned about his symptoms and would like a sooner evaluation. He states that he is willing to stay for admission today if necessary. He denies abdominal pain but reports baseline nausea and decreased appetite. Reports that he has stopped drinking energy drinks for the past week. Denies diarrhea or constipation. Denies urinary symptoms. Denies fevers. Related Data Home Medications Medication Instructions Recorded Confirmed aspirin 81 mg tablet,delayed 81 mg PO DAILY 06/16/21 07/08/22 release (Adult Aspirin Regimen) Previous Rx's Medication Instructions Recorded sildenafil 25 mg tablet 25 mg PO DAILY PRN sexual activity 07/08/22 #14 tabs trazodone 50 mg tablet 25 mg PO BEDTIME PRN sleep #7 tabs 07/08/22 atorvastatin 40 mg tablet 40 mg PO DAILY #90 tabs 10/04/22 Allergies Allergy/AdvReac Type Severity Reaction Status Date / Time tomato AdvReac Mild Hives Verified 07/08/22 11:06 [facility] Past Medical History Medical History Carotid stenosis Coagulopathy Encounter to establish care Plantar fasciitis of right foot Pulmonary embolism Stroke Surgical History History of appendectomy Family History Family History Mother Mental health disorder Mother Diabetes Other Substance use disorder Social History Social History Household Members: Spouse and Children Housing: Apartment Are you a primary childcare teacher to a significant other at home: No Do you presently have visiting nurse or other home services: No Alcohol intake: current Alcohol intake frequency: holidays/special occasions only Alcohol type: beer and hard liquor Patient Tobacco Use Status: Current everyday Tobacco user Tobacco use type: Cigarette Cigarette Packs Per Day: 0.5 Smoked in Last 30 Days: Yes e-Cigarette/Vaping Use: Never Used Second Hand Smoke Exposure: Yes Substance Use Type: Marijuana Substance Use Frequency: Occasionally Advance Directives: No Advance Directives Information Provided: No service: No Current occupational status: employed Current occupation: [employer] Cognitive needs: No Hearing needs: No Vision needs: Yes (glasses) Physical Exam ED Vital Signs: Vital Signs - 24 hr 10/05/22 15:15 10/05/22 18:00 10/05/22 21:25 Temperature 98.1 F 98.5 F 98.2 F Pulse Rate 84 145 H 70 Respiratory Rate 18 20 18 Blood Pressure 185/100 H 153/97 H 166/95 H Pulse Oximetry 97 100 96 Oxygen Delivery Method Room Air Room Air Room Air 10/05/22 23:17 10/06/22 00:00 Temperature 98.4 F Pulse Rate 58 52 Respiratory Rate 21 H 20 Blood Pressure 148/86 H 146/83 H Pulse Oximetry 96 96 Oxygen Delivery Method Room Air Room Air BMI result Body Mass Index 28.1 Course Course Course Narrative: This is a rapid medical exam. Deferred additional HPI, ROS, PE to primary provider. 37-year-old male with history of CVA in 2021, coagulopathy, carotid stenosis?on ASA only here with left forearm swelling/pain, left leg swelling/pain, bruising over various parts of body, confusion, vomiting x 2 weeks. Called neurologist and has appt 10/20. Seen here 09/30 for similar complaints. Will check labs, UA, EKG VSS Reevaluation(s) Reevaluation #1: 1801-Patient now having chest pain. Brought back to triage. New vital signs were obtained. Will obtain EKG, CXR, troponin. Medications Administered Discontinued Medications Generic Name Dose Route Start Last Admin Trade Name Emily PRN Reason Stop Dose Admin Sodium Chloride 1,000 mls @ 999 mls/hr 10/05/22 22:45 10/06/22 00:16 Ns IV 10/05/22 23:45 Infused .Q1H1M ISAIAS Infusion Iohexol 65 ml 10/06/22 01:05 10/06/22 01:06 Iohexol 350 Mg/Ml 100 Ml Infus..Btl IV 10/06/22 01:06 65 ml ONCE ONE Administration Medical Decision Making Medical Decision Making [facility] Narrative: Patient is a 29-year-old male with history of CVA in 2021, coagulopathy, PE in 2004, not currently anticoagulated, only takes baby aspirin daily, carotid stenosis presenting to the emergency department with complaint of intermittent vomiting, headaches, confusion, sweats/chills at night, for the past several weeks. New calf pain and left arm pain and swelling. On exam patient is awake, A+Ox3, BP elevated but improved while in ED without medication, VS otherwise WNL, afebrile, normal neurological exam without focal deficits, abdomen soft and nontender, no guarding or rebound tenderness, no CVA tenderness, very slight swelling to left forearm, no calf tenderness, however given patient's history of coagulopathy/PE will obtain ultrasounds. Will obtain d-dimer based on concern for DVT, prior PE, as well as patient's report of chest pain. Given reported symptoms and physical exam findings, initial differential includes DVT, PE, dehydration, electrolyte abnormality, acute renal insufficiency, anemia, ICH, ACS. Labs remarkable for CK of 251, BUN and Cr WNL, negative troponin, no leukocytosis, no anemia. D-dimer elevated so CTA chest ordered. Tick panel drawn on 09/30 visit all negative. Chest x-ray unremarkable. Ultrasounds negative for LUE or bilateral LE DVTs. CT notable for no PE. My interpretation is in agreement with the radiologist's interpretation. Feel patient's symptoms at this time are likely related to dehydration given elevated CK. He has follow up appointments with both a new PCP and neurology in the coming weeks. Although his CT head was abnormal at last visit, it was similar to prior so likely unrelated to current symptoms. Feel patient is stable for discharge home at this time given that he has approriate follow up. All results discussed and all questions answered with patient. Return precautions discussed bedside. Patient verbalized understanding of and agreement with plan. Differential Diagnosis Differential Diagnoses: The differential diagnosis associated with the presentation includes As per [facility] Admission/Observation Consideration of admission/observation: Escalation of care including admission/observation considered Considered on arrival given concern for possible DVT/PE. Lab Data [facility] Lab Attestation statement: I reviewed the patient's lab results. As per [facility] 10/05/22 15:38 10/05/22 15:38 Labs: Lab Results 10/05/22 10/05/22 10/05/22 Range/Units 15:38 15:38 15:39 WBC 8.6 (4.8-10.8) X10*3/uL RBC 5.50 (4.60-5.80) X10*6/uL Hgb 16.1 (14.0-18.0) g/dl Hct 47.1 (42.0-52.0) % MCV 85.6 (80.0-98.0) fL MCH 29.3 (27.0-33.0) pg MCHC 34.2 (31.0-36.0) g/dl RDW 12.0 (11.0-16.0) % Plt Count 341 D (160-400) X10*3/uL MPV 9.0 L (9.4-12.4) fL Immature Gran % (Auto) 0.1 (0.0-0.4) % Neut % (Auto) 69.7 (45-73) % Lymph % (Auto) 19.4 L (20-40) % [place] % (Auto) 6.9 (2-11) % Eos % (Auto) 2.9 (0-4) % Baso % (Auto) 1.0 (0-2) % Lymph # (Auto) 1.7 (1.2-4.9) X10*3/uL [place]asper # (Auto) 0.6 (0.1-1.2) X10*3/uL Eos # (Auto) 0.3 (0.0-0.4) X10*3/uL Baso # (Auto) 0.1 (0.0-0.2) X10*3/uL Abs Immat Gran (auto) 0.01 (0.00-0.03) X10*3/uL Absolute Neuts (auto) 6.0 (2.0-8.3) x10*3/uL Absolute Nucleated RBC 0.000 (0.0-0.012) X10*3/uL Nucleated RBC % (auto) 0.0 (0.0-0.2) /100WBC PT 11.7 (10.0-13.1) SEC INR 1.0 (0.9-1.1) D-Dimer High Sensitivty NG/ML Sodium 140 (135-145) mmol/L Potassium 4.3 (3.3-5.1) mmol/L Chloride 104 (96-108) mmol/L Carbon Dioxide 28 (22-29) mmol/L Anion Gap 12 (12-20) BUN 10 (9-16) mg/dL Creatinine 0.83 (0.5-1.4) mg/dL Estim Creat Clear Calc 119.2 Estimated GFR > 60 Random Glucose 111 (60-115) mg/dL Calcium 10.2 D (8.4-10.2) mg/dL Magnesium 1.9 (1.6-2.6) mg/dL Total Bilirubin 0.5 (0.0-1.0) mg/dL Direct Bilirubin 0.2 (0.0-0.5) mg/dL AST 27 (5-37) U/L ALT 35 (0-40) U/L Alkaline Phosphatase 89 (39-117) U/L Total Creatine Kinase 251 H (38-174) U/L Troponin I High Sens (<3.5-35.0) ng/L Total Protein 7.6 (6.5-8.0) g/dL Albumin 4.5 (3.5-5.0) g/dL Urine Color Urine Appearance Urine pH (5.0-9.0) Ur Specific [place] (1.005-1.025) Urine Protein (Neg-Trace) mg/dL Urine Glucose (UA) (Negative) mg/dL Urine Ketones (Negative) mg/dL Urine Blood (Negative) Urine Nitrite (Negative) Ur Leukocyte Esterase (Negative) 10/05/22 10/05/22 10/06/22 Range/Units 18:24 23:29 00:20 WBC (4.8-10.8) X10*3/uL RBC (4.60-5.80) X10*6/uL Hgb (14.0-18.0) g/dl Hct (42.0-52.0) % MCV (80.0-98.0) fL MCH (27.0-33.0) pg MCHC (31.0-36.0) g/dl RDW (11.0-16.0) % Plt Count (160-400) X10*3/uL MPV (9.4-12.4) fL Immature Gran % (Auto) (0.0-0.4) % Neut % (Auto) (45-73) % Lymph % (Auto) (20-40) % Jasper % (Auto) (2-11) % Eos % (Auto) (0-4) % Baso % (Auto) (0-2) % Lymph # (Auto) (1.2-4.9) X10*3/uL Jasper # (Auto) (0.1-1.2) X10*3/uL Eos # (Auto) (0.0-0.4) X10*3/uL Baso # (Auto) (0.0-0.2) X10*3/uL Abs Immat Gran (auto) (0.00-0.03) X10*3/uL Absolute Neuts (auto) (2.0-8.3) x10*3/uL Absolute Nucleated RBC (0.0-0.012) X10*3/uL Nucleated RBC % (auto) (0.0-0.2) /100WBC PT (10.0-13.1) SEC INR (0.9-1.1) D-Dimer High Sensitivty 278 NG/ML Sodium (135-145) mmol/L Potassium (3.3-5.1) mmol/L Chloride (96-108) mmol/L Carbon Dioxide (22-29) mmol/L Anion Gap (12-20) BUN (9-16) mg/dL Creatinine (0.5-1.4) mg/dL Estim Creat Clear Calc Estimated GFR Random Glucose (60-115) mg/dL Calcium (8.4-10.2) mg/dL Magnesium (1.6-2.6) mg/dL Total Bilirubin (0.0-1.0) mg/dL Direct Bilirubin (0.0-0.5) mg/dL AST (5-37) U/L ALT (0-40) U/L Alkaline Phosphatase (39-117) U/L Total Creatine Kinase (38-174) U/L Troponin I High Sens < 2.7 (<3.5-35.0) ng/L Total Protein (6.5-8.0) g/dL Albumin (3.5-5.0) g/dL Urine Color Yellow Urine Appearance Clear Urine pH 6.0 (5.0-9.0) Ur Specific [place] 1.025 (1.005-1.025) Urine Protein Negative (Neg-Trace) mg/dL Urine Glucose (UA) Negative (Negative) mg/dL Urine Ketones 15 (Negative) mg/dL Urine Blood Negative (Negative) Urine Nitrite Negative (Negative) Ur Leukocyte Esterase Negative (Negative) Independent Interpretation I performed an independent interpretation of an: EKG, Plain X-Ray and Ultrasound Interpretation: EKG: Normal sinus rhythm on both, rates 73, 79 bpm, normal [place] and QT intervals on both, no evidence of STEMI on either. CXR: Normal chest U/S: no LUE, LLE, or RLE DVT CT: no PE Radiology Impression Discussion of test interpretation with radiology: I have reviewed the radiologist's reading. Radiologist Impression: XR/XR chest 2V IMPRESSION: Unremarkable examination. US/US venous duplex LE BI IMPRESSION: No DVT demonstrated in the bilateral lower extremities. US/US venous duplex UE LT IMPRESSION: No DVT demonstrated in the left upper extremity. CT/CT angio chest PE protocol IMPRESSION: No pulmonary embolus identified. ? VTE: negative. External Record Review External record reviewed: Inpatient record, Office record and Outpatient record Discharge Plan Discharge Clinical Impression: Arm pain, left, Dehydration Patient Disposition: Home, Self-Care Instructions: Dehydration (ED), Arm Pain (ED) Additional Instructions: You were evaluated in the emergency department today for new arm and leg pain and swelling. Your evaluation including ultrasounds and CT did not show evidence of any blood clots. Please keep your upcoming appointment with your new PCP and with Dr. Man. Return to the emergency department for worsening pain, new numbness or tingling, unilateral weakness, chest pain, shortness of breath, persistent vomiting, or any other concerning symptoms. Prescriptions: No Action atorvastatin 40 mg tablet 40 mg PO DAILY Qty: 90 1RF aspirin [Adult Aspirin Regimen] 81 mg tablet,delayed release (DR/EC) 81 mg PO DAILY sildenafil 25 mg tablet 25 mg PO DAILY PRN (Reason: sexual activity) Qty: 14 0RF Rx Instructions: administer 30 minutes to 4 hours before activity trazodone 50 mg tablet 25 mg PO BEDTIME PRN (Reason: sleep) Qty: 7 0RF
--- NOTE | 2022-10-05 15:20 | ECG_ITS ---
Test Reason : WEAKNESS Blood Pressure : / mmHG Vent. Rate : 079 BPM Atrial Rate : 079 BPM P-R Int : 178 ms QRS Dur : 082 ms QT Int : 356 ms P-R-T Axes : 048 027 043 degrees QTc Int : 408 ms Normal sinus rhythm Normal ECG When compared with ECG of 30-SEP-2022 16:04, No significant change was found Referred By: Kathia Batista Electronically Signed By:Raz Zepeda
[2022-10-05 15:43] LABS: MANUAL DIFF FLAG NO
[2022-10-05 15:53] LABS: Prothrombin Time 11.7 SEC (10.0-13.1)
[2022-10-05 15:57] LABS: Basophils Absolute Auto 0.1 X10*3/uL (0.0-0.2); Eosinophils Absolute Auto 0.3 X10*3/uL (0.0-0.4); Eosinophils Percent Auto 2.9 % (0-4); Hematocrit 47.1 % (42.0-52.0); Hemoglobin 16.1 g/dl (14.0-18.0); Imm Gran Abs Auto 0.01 X10*3/uL (0.00-0.03); Imm Gran Pct Auto 0.1 % (0.0-0.4); Lymphocytes Absolute Auto 1.7 X10*3/uL (1.2-4.9); Lymphocytes Percent Auto 19.4 % (20-40); Mean Corpuscular HGB Conc 34.2 g/dl (31.0-36.0); Mean Corpuscular Hemoglobin 29.3 pg (27.0-33.0); Mean Corpuscular Volume 85.6 fL (80.0-98.0); Monocytes Absolute Auto 0.6 X10*3/uL (0.1-1.2); Monocytes Percent Auto 6.9 % (2-11); Neutrophils Percent Auto 69.7 % (45-73); Platelet Count 341 X10*3/uL (160-400); White Blood Count 8.6 X10*3/uL (4.8-10.8)
[2022-10-05 16:04] LABS: Alanine Aminotransferase 35 U/L (0-40); Albumin Level 4.5 g/dL (3.5-5.0); Alkaline Phosphatase 89 U/L (39-117); Anion Gap 12 (12-20); Aspartate Amino Transferase 27 U/L (5-37); Bilirubin Direct 0.2 mg/dL (0.0-0.5); Bilirubin Total 0.5 mg/dL (0.0-1.0); Blood Urea Nitrogen 10 mg/dL (9-16); Calcium 10.2 mg/dL (8.4-10.2); Carbon Dioxide 28 mmol/L (22-29); Chloride 104 mmol/L (96-108); Creatinine Clr Calc Pharmacy 119.2; Estimated Glomerular Filt Rate > 60; Glucose Random 111 mg/dL (60-115); Magnesium 1.9 mg/dL (1.6-2.6); Potassium 4.3 mmol/L (3.3-5.1); Sodium 140 mmol/L (135-145); Total Protein 7.6 g/dL (6.5-8.0)
[2022-10-05 18:00] VITALS: BP 153/97; PULSE 145; RESP 20; TEMP 36.9; O2SAT 100
--- NOTE | 2022-10-05 18:00 | ECG_ITS ---
Test Reason : REPEAT Blood Pressure : / mmHG Vent. Rate : 073 BPM Atrial Rate : 073 BPM P-R Int : 184 ms QRS Dur : 084 ms QT Int : 370 ms P-R-T Axes : 035 032 039 degrees QTc Int : 407 ms Normal sinus rhythm Minimal voltage criteria for LVH, may be normal variant ( Sokolow-Garner ) Borderline ECG When compared with ECG of 05-OCT-2022 15:28, No significant change was found Referred By: Kathia Batista Electronically Signed By:Raz Zepeda
[2022-10-05 18:50] LABS: Troponin-I High Sensitivity < 2.7 ng/L (<3.5-35.0)
[2022-10-05 21:25] VITALS: BP 166/95; PULSE 70; RESP 18; TEMP 36.8; O2SAT 96
--- NOTE | 2022-10-05 23:00 | PC.NURSE ---
aox4 ambulates safely/independently calm/cooperative no apparent distress changed into hospital attire
[2022-10-05] MEDS: 0.9 % Sodium Chloride 1,000 ML 999 ML IV (23:15)
[2022-10-05 23:17] VITALS: BP 148/86; PULSE 58; RESP 21; TEMP 36.9; O2SAT 96
--- NOTE | 2022-10-05 23:29 | PC.NURSE ---
ddimer drawn with straight needle, label affixed to specimen container, specimen sent to lab via tube system
--- NOTE | 2022-10-05 23:29 | PC.NURSE ---
pt made aware that a urine sample is needed urinal supplied instructed to hit call light once specimen is obtained
[2022-10-05 23:42] LABS: D Dimer High Sensitivity 278 NG/ML
[2022-10-06] VITALS: BP 146/83; PULSE 52; RESP 20; O2SAT 96
--- NOTE | 2022-10-06 00:21 | PC.NURSE ---
urine spe obtained, labels affixed, spe sent to lab via tube system
[2022-10-06 00:27] LABS: Appearance Urine Clear; Color Urine Yellow; Glucose Urine UA Negative (Negative); Leukocyte Esterase Urine Negative (Negative); Nitrite Urine Negative (Negative); Specific Gravity - Urine 1.025 (1.005-1.025); Urine Blood Negative (Negative); Urine Ketones 15 mg/dL (Negative); Urine Protein Negative (Neg-Trace)
[2022-10-06] MEDS: iohexoL 350 MG/ML 100 ML INFUS..BTL 65 ML IV (01:06)
--- NOTE | 2022-10-06 02:14 | PC.NURSE ---
Discharge instructions given/explained to pt No apparent distress aox4 ambulates safely/independently All questions answered IV cath tip intact upon removal
[2022-10-06 02:15] VITALS: BP 138/76; PULSE 68; RESP 17; TEMP 36.6; O2SAT 97
== END 2022-10-06 02:17 | disposition home or self-care (01) ==
PROVIDERS: Nurse Practitioner Family; Registered Nurse Emergency; Emergency Provider Emergency Medicine
DX: M79.632 Pain in left forearm (principal); M79.662 Pain in left lower leg; R94.31 Abnormal electrocardiogram [ECG] [EKG]; R11.2 Nausea with vomiting, unspecified; E86.0 Dehydration; R51.9 Headache, unspecified; R41.0 Disorientation, unspecified; D68.9 Coagulation defect, unspecified; F17.210 Nicotine dependence, cigarettes, uncomplicated; F12.90 Cannabis use, unspecified, uncomplicated; M79.661 Pain in right lower leg; Z79.899 Other long term (current) drug therapy
CPT/HCPCS: 36415; 71046; 71275; 80048; 80076; 81003; 82550; 83735; 84484; 85025; 85379; 85610; 93005; 93970; 93971; 96360; 99284; 99285; Q9967

== ENCOUNTER → 2022-10-05 15:20 | Outpatient (BNV) | payer OTHER, SELFPAY | PROVIDERS: Visit Provider Internal Medicine Cardiovascular Disease | DX: R53.1 Weakness (principal) | CPT/HCPCS: 93010 ==

== ENCOUNTER 2022-10-08 11:43 | Outpatient (AMB) | payer OTHER, SELFPAY ==
--- NOTE | 2022-10-08 11:10 | MHC.PC.OV ---
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 Medical history significant for stroke in 2021, carotid stenosis, headache, insomnia. Patient was seen in [facility] 09/30/2022-diagnosis of dehydration, then patient was seen in the emergency department 10/05/2022-diagnosis of left arm pain and dehydration. Patient also did have high blood pressures in the emergency department. He reports a blood pressure yesterday at home 155/98, blood pressure this morning 148/114, blood pressure elevated in the office today. He denies headache, no shortness of breath or chest pain. Reports chronic numbness and tingling to his left hand 4th and 5th fingers seen stroke in 2021. Reports some mild swelling in his left forearm-reports this in the past as well. Reports some swelling and tenderness in his left ankle. He has an upcoming appointment with Neurology 10/20/2022. Denies changes in vision. Reports that when sometimes he feels anxious he has hard time to catch breath. 09/30/22 CT/CT head/brain wo IV con IMPRESSION: Multiple regions of encephalomalacia and gliosis in the right frontal lobe sequela of multiple infarctions noted on prior examinations from April 2021. Superimposed small acute infarctions are difficult to exclude, and if focal neurologic deficits or an acute cerebrovascular accident is clinically suspected, further evaluation with an MR of the brain is recommended. No edematous infarction or intraparenchymal hemorrhage. No extra-axial collection. Paranasal sinus disease. 10/05/22 XR/XR chest 2V IMPRESSION: Unremarkable examination. US/US venous duplex LE BI IMPRESSION: No DVT demonstrated in the bilateral lower extremities. US/US venous duplex UE LT IMPRESSION: No DVT demonstrated in the left upper extremity. CT/CT angio chest PE protocol IMPRESSION: No pulmonary embolus identified. VTE: negative. [facility] Medical History Carotid stenosis Coagulopathy Encounter to establish care Plantar fasciitis of right foot Pulmonary embolism Stroke Surgical History History of appendectomy Family History Mother Mental health disorder Mother Diabetes Other Substance use disorder Social History Household Members: Spouse and Children Housing: Apartment Are you a primary healthcare science specialist to a significant other at home: No Do you presently have visiting nurse or other home services: No Alcohol intake: current Alcohol intake frequency: holidays/special occasions only Alcohol type: beer and hard liquor Patient Tobacco Use Status: Current everyday Tobacco user Tobacco use type: Cigarette Cigarette Packs Per Day: 0.5 e-Cigarette/Vaping Use: Never Used Second Hand Smoke Exposure: Yes Substance Use Type: Marijuana service: No Current occupational status: employed Current occupation: [employer] Cognitive needs: No Hearing needs: No Vision needs: Yes (glasses) Questionnaire Thrive Questionnaire Date Thrive assessed: 04/09/22 AUDIT C Alcohol Use Questionnaire (AUDIT-C) 1. How often do you have a drink containing alcohol?: Monthly or less 2. How many drinks containing alcohol do you have on a typical day when you are drinking?: 1 or 2 3. How often do you have six or more drinks on one occasion?: Never Total Score: 1 Score Reviewed/Action Taken: Yes (reviewed, no action needed) DIOGENES-7 AMB Questionnaire DIOGENES-7 Date DIOGENES - 7 assessed: 04/09/22 Source: Developed by Drs. Rakan Nguyen, Tanya Miller, Reuben Flores and colleagues, with an educational michelle from [employer]. Review of Systems Const Denies body aches, Denies chills, Denies fever(s) and Denies headache(s) Eyes Denies change in vision ENT Denies dizziness, Denies otalgia, Denies headache(s), Denies nasal discharge, Denies sinus pain and Denies sore throat Card Denies chest pain, Denies edema, Denies lightheadedness and Denies dyspnea Resp Reports as per HPI, Denies cough, Denies dyspnea and Denies wheezing GI Denies constipation, Denies diarrhea, Denies nausea and Denies vomiting Denies dysuria Musc Denies myalgias Skin/Breast Denies rash Neuro Reports as per HPI, Denies dizziness and Denies headache(s) Aller/Immun Denies wheezing Physical exam (Primary Care) Vital Signs: Last Vital Signs Pulse 93 10/08/22 11:47 BP 162/112 H 10/08/22 11:47 Pulse Ox 98 10/08/22 11:47 Oxygen Delivery Method Room Air 10/08/22 11:47 BMI result Body Mass Index 28.6 Tobacco/Smoking Status: Tobacco use Status Tobacco use date assessed 10/08/22 10/08/22 11:51 Patient Tobacco Use Status Current everyday Tobacco 10/08/22 11:10 Tobacco use type Cigarette 10/08/22 11:10 e-Cigarette/Vaping Use Never Used 10/08/22 11:10 Thrive Assessment: Date of Thrive Assessment Date Thrive assessed 04/09/22 10/08/22 11:10 Const General: cooperative and no acute distress Orientation/consciousness: patient oriented x3 HENMT Head: Yes normocephalic and Yes atraumatic Face and sinus: Yes sinuses nontender Mouth: oropharynx normal and moist mucous membranes Throat: Yes posterior oropharynx normal Eyes General: appearance normal, both eyes and all related structures Pupils: Equal, round and reactive pupils present EOM: EOMs intact bilaterally Neck Neck: Yes normal visual inspection, Yes full ROM and Yes no lymphadenopathy Thyroid: Thyroid normal Resp Effort & Inspection: normal respiratory effort and able to speak in complete sentences Auscultation: clear to auscultation bilaterally, no crackles, no rales, no rhonchi and no wheezes Cardio Rate: regular rate Rhythm: regular rhythm Heart sounds: S1 normal heart sound present, S2 normal heart sound present and no murmurs GI Auscultation: normal bowel sounds Skin General skin exam: no rashes or lesions noted Neuro Other: Mild weakness noted to left hand, patient reports this since having stroke in 2021 General: patient oriented x3 and CN's II-XI intact bilaterally Cranial nerves: Yes Equal, round and reactive pupils present Gait exam (Neuro): Normal gait present Extrem Other: Trace edema noted to left forearm and left ankle Left lateral ankle with mild tenderness to palpation General: Yes full ROM Assessment and Plan Assessment & Plan (1) Hypertension: Code(s): I10 - Essential (primary) hypertension Plan: Goal BP equal or less than 140/90 Blood pressure elevated in the office today blood pressures also have been elevated at home Start lisinopril 10 mg daily-educated about possible adverse reactions and when to notify provider Keep appointment with office in beginning of October 2022 Signs and symptoms reviewed when to notify provider or go to the emergency department (2) Stroke: Comment: 04/2021 Code(s): I63.9 - Cerebral infarction, unspecified Plan: Keep appointment with neurology as scheduled 10/20/2022 Signs and symptoms reviewed when to notify provider or go to the emergency department Medications: New lisinopril 10 mg PO DAILY 30 tabs 2RF I10 - Essential (primary) hypertension Coding Level of Care Code Est Pt Level 3 (02440) Diagnoses Hypertension I10 Stroke I63.9
[2022-10-08 11:47] VITALS: BP 162/112; PULSE 93; O2SAT 98; BMI 28.6
== END 2022-10-08 13:28 | disposition home or self-care (01) ==
LOC: HO.HMGH 11:43
PROVIDERS: PCP Nurse Practitioner Family; Visit Provider Nurse Practitioner Family
DX: I10 Essential (primary) hypertension (principal); Z86.73 Personal history of transient ischemic attack (TIA), and cerebral infarction without residual deficits
CPT/HCPCS: 99213

== ENCOUNTER 2022-10-27 15:47 | Outpatient (AMB) | payer OTHER, SELFPAY ==
[2022-10-27 15:49] VITALS: BP 112/62; PULSE 91; O2SAT 95; BMI 28.1
--- NOTE | 2022-10-27 15:49 | MHC.PC.OV ---
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 Accompanied by: Self / Same As Patient Allergies tomato Adverse Reaction (Mild, Verified 10/27/22 16:12) Hives Medication List - Last Reconciled 10/27/22 by Derek Garces PA-C aspirin (Adult Aspirin Regimen) 81 mg PO DAILY atorvastatin 40 mg PO DAILY blood pressure monitor check BP daily lisinopril 10 mg PO DAILY sildenafil 25 mg PO DAILY PRN trazodone 25 mg (1/2 x 50 mg) PO BEDTIME PRN Tobacco use date assessed: 10/08/22 Dental Screening Dental Screen Date: 10/27/22 Did you have a dental visit in the last 12 months?: No Did you have a dental problem in the last 6 months where you did not have access to dental care?: No Was dental information given to patient?: Yes HPI ed follow up for weakness HPI Details Patient is a 37-year-old male here today for an ED follow-up visit. This is the 1st time I am meeting this 37-year-old male with a past medical history of CVA, internal carotic stenosis, nicotine dependency, hypertension. Recently seen at [facility] generally feeling unwell, vomiting, headaches and extremity pain., CT of head showing --> Multiple regions of encephalomalacia and gliosis in the right frontal lobe sequela of multiple infarctions noted on prior examinations from April 2021. CTA chest and ultrasound lower extremity without evidence of DVT or PE. Patient's symptoms that to be due to-hydration given his elevated CK level. Discharged home on home medication. Hypertension: Blood pressure is a much improved. Recently started on lisinopril 10 mg with good effect on reducing his blood pressure. Patient reports he feels better. Laboratory Tests 05/15/21 10/05/22 09:50 23:29 D-Dimer High Sensi tivty 278 Protein C Activity >200 H PFSH Medical History Carotid stenosis Coagulopathy Encounter to establish care Plantar fasciitis of right foot Pulmonary embolism Stroke Surgical History History of appendectomy Family History Mother Mental health disorder Mother Diabetes Other Substance use disorder Social History Household Members: Spouse and Children Housing: Apartment Are you a primary behavioral health care coordinator to a significant other at home: No Do you presently have visiting nurse or other home services: No Alcohol intake: current Alcohol intake frequency: holidays/special occasions only Alcohol type: beer and hard liquor Patient Tobacco Use Status: Current everyday Tobacco user Tobacco use type: Cigarette Cigarette Packs Per Day: 0.5 e-Cigarette/Vaping Use: Never Used Second Hand Smoke Exposure: Yes Substance Use Type: Marijuana service: No Current occupational status: employed Current occupation: [employer] Cognitive needs: No Hearing needs: No Vision needs: Yes (glasses) Questionnaire PHQ-9 Over the last 2 weeks, how often have you been bothered by any of the following problems? 1. Little interest or pleasure in doing things: not at all 2. Feeling down, depressed, or hopeless: not at all 3. Trouble falling or staying asleep, or sleeping too much: not at all 4. Feeling tired or having little energy: not at all 5. Poor appetite or overeating: not at all 6. Feeling bad about yourself - or that you are a failure or have let yourself or your family down: not at all 7. Trouble concentrating on things, such as reading the newspaper or watching television: not at all 8. Moving or speaking so slowly that other people could have noticed. Or the opposite - being so fidgety or restless that you have been moving around a lot more than usual: not at all 9. Thoughts that you would be better off or of hurting yourself in some way: not at all Total score: 0 Depression Screening Interpretation: Negative 30638 - PHQ-9 Billing: Yes Source: Developed by Drs. Rakan Nguyen, Tanya Miller, Reuben Flores and colleagues, with an educational michelle from [employer]. Thrive Questionnaire Date Thrive assessed: 04/09/22 AUDIT C Alcohol Use Questionnaire (AUDIT-C) 1. How often do you have a drink containing alcohol?: Monthly or less 2. How many drinks containing alcohol do you have on a typical day when you are drinking?: 1 or 2 3. How often do you have six or more drinks on one occasion?: Never Total Score: 1 Score Reviewed/Action Taken: Yes (reviewed, no action needed) DIOGENES-7 AMB Questionnaire DIOGENES-7 Date DIOGENES - 7 assessed: 04/09/22 Source: Developed by Drs. Rakan Nguyen, Tanya Miller, Reuben Flores and colleagues, with an educational michelle from [employer]. Review of Systems Const Denies headache(s) Eyes Denies loss of vision ENT Denies vertigo, Denies dizziness, Denies headache(s) and Denies sore throat Card Denies chest pain, Denies leg edema and Denies lightheadedness Resp Denies cough, Denies hemoptysis and Denies wheezing GI Denies abdominal pain, Denies melena, Denies constipation, Denies diarrhea and Denies vomiting Denies dysuria, Denies urinary frequency and Denies urinary urgency Musc Denies arthralgias, Denies joint swelling, Denies numbness and Denies tingling Neuro Denies Abnormal speech present, Denies behavioral changes, Denies vertigo, Denies dizziness, Denies headache(s), Denies loss of vision, Denies memory loss, Denies numbness and Denies tingling Psych Denies anxiety, Denies behavioral changes, Denies depression, Denies memory loss and Denies panic attacks Thad/Lymph Denies easy bleeding and Denies easy bruising Aller/Immun Denies wheezing Physical exam (Primary Care) Vital Signs: Last Vital Signs Pulse 91 10/27/22 15:49 BP 112/62 10/27/22 15:49 Pulse Ox 95 10/27/22 15:49 Oxygen Delivery Method Room Air 10/27/22 15:49 BMI result Body Mass Index 28.1 Tobacco/Smoking Status: Tobacco use Status Tobacco use date assessed 10/08/22 10/27/22 15:50 Patient Tobacco Use Status Current everyday Tobacco 10/27/22 15:50 Tobacco use type Cigarette 10/27/22 15:50 e-Cigarette/Vaping Use Never Used 10/27/22 15:50 Tobacco cessation counseling provided: Yes Relapse Prevention: discussed the importance of a supportive environment, discussed negative mood or depression after quitting, weight gain after smoking is common and discussed dietary, exercise and/or lifestyle changes Number of minutes spent counselin CPT code: 39670 - 4-10 Minutes PHQ-9: PHQ-9 Score PHQ-9: Total score 0 10/28/22 07:10 Depression Screening Interpretation: Negative Thrive Assessment: Date of Thrive Assessment Date Thrive assessed 04/09/22 10/27/22 15:50 Const General: healthy appearing, no acute distress, alert and awake Nutritional Appearance: well nourished Orientation/consciousness: oriented to person, oriented to place and oriented to time HENMT Ears: TM's normal bilaterally General nose exam: Normal nasal mucous membranes and turbinates present Eyes Conjunctivae: conjunctivae normal Sclerae: sclerae normal Pupils: Equal, round and reactive pupils present Neck Neck: Yes no lymphadenopathy and Yes no JVD Thyroid: Thyroid normal Carotids: no bruits Resp Effort & Inspection: normal respiratory effort and not tachypneic Auscultation: no crackles, no rales, no rhonchi and no wheezes Cardio Rate: regular rate Rhythm: regular rhythm Heart sounds: no murmurs and normal S1 and S2 GI Palpation (GI): Soft to palpation, nontender, no hepatomegaly and no splenomegaly Auscultation: normal bowel sounds Skin General skin exam: no rashes or lesions noted and dry skin Neuro General: oriented to person, oriented to place and oriented to time Cranial nerves: Yes Equal, round and reactive pupils present Speech: No Abnormal speech present Gait exam (Neuro): Normal gait present Motor exam (neuro): no tremor noted Extrem Right upper extremity: full ROM Left upper extremity: full ROM Right lower extremity: full ROM; no edema Left lower extremity: full ROM; no edema Psych Mental Status: mental status grossly normal Speech and movement: Normal speech and movement present Affect: normal affect Attitude: cooperative Thought process: Normal thought process present Assessment and Plan Assessment & Plan (1) Hypertension: Code(s): I10 - Essential (primary) hypertension Qualifiers: Hypertension type: primary hypertension Qualified Code(s): I10 - Essential (primary) hypertension Plan: Blood pressure acceptable today in office. Has been placed on lisinopril 10 mg to which she reports a significant improvement in his blood pressure, fatigue. Interestingly Does report being a little more emotional. Goal blood pressure remain below 140/90 (2) Carotid stenosis: Comment: R ICA occlusion Code(s): I65.29 - Occlusion and stenosis of unspecified carotid artery Qualifiers: Laterality: bilateral Qualified Code(s): I65.23 - Occlusion and stenosis of bilateral carotid arteries Plan: Was seen by vascular in the past and was on surveillance ultrasounds for his occluded carotid arteries. Will refer to neurosurgeon at [facility] for 2nd opinion. (3) CVA (cerebral vascular accident): Code(s): I63.9 - Cerebral infarction, unspecified Qualifiers: CVA mechanism: embolism Laterality of affected vessel: right Precerebral and cerebral artery: middle cerebral artery Qualified Code(s): I63.411 - Cerebral infarction due to embolism of right middle cerebral artery Plan: Patient with history a CVA and pulmonary emboli in 2005. Has seen Hematology in the past for hypercoagulable workup. Recommendations to remain on aspirin. Will continue to try to control his risk factors and control blood pressure and cholesterol. Again advised to quit smoking (4) Nicotine dependence: Code(s): F17.200 - Nicotine dependence, unspecified, uncomplicated Qualifiers: Nicotine product type: other Substance use status: uncomplicated Qualified Code(s): F17.290 - Nicotine dependence, other tobacco product, uncomplicated Plan: Patient reports he is V being at this time. He seems not to be able to quit. Has tried Wellbutrin and nicotine replacement in the past without effectiveness. He is willing to retry Chantix to help him quit smoking. Orders: Referrals Neurosurgery Referral I65.23 - Occlusion and stenosis of bilateral carotid arteries Medications: New varenicline 0.5 mg PO; Take 0.5 mg qd x 3 days, then 0.5 mg b.i.d. x4 days 7 days 11 tabs 0RF F17.200 - Nicotine dependence, unspecified, uncomplicated, F17.290 - Nicotine dependence, other tobacco product, uncomplicated varenicline 1 mg PO BID 28 days 56 tabs 3RF F17.200 - Nicotine dependence, unspecified, uncomplicated, F17.290 - Nicotine dependence, other tobacco product, uncomplicated Coding Level of Care Code Est Pt Level 3 (34195) Diagnoses Hypertension I10 Hypertension type: primary hypertension Carotid stenosis I65.23 Laterality: bilateral CVA (cerebral vascular accident) I63.411 CVA mechanism: embolism Laterality of affected vessel: right Precerebral and cerebral artery: middle cerebral artery Nicotine dependence F17.290 Nicotine product type: other Substance use status: uncomplicated Additional Codes Vital Signs *Quality* - CPT code: 46530 - 4-10 Minutes ([id number])
== END 2022-10-27 16:38 | disposition home or self-care (01) ==
PROVIDERS: PCP Nurse Practitioner Family; Visit Provider Physician Assistant
DX: I10 Essential (primary) hypertension (principal); I65.23 Occlusion and stenosis of bilateral carotid arteries; I63.411 Cerebral infarction due to embolism of right middle cerebral artery; F17.290 Nicotine dependence, other tobacco product, uncomplicated
CPT/HCPCS: 99213; 99406

== ENCOUNTER 2023-05-26 15:17 | Outpatient (AMB) | payer OTHER, SELFPAY ==
--- NOTE | 2023-05-26 15:20 | MHC.PC.OV ---
Vital Signs 05/26/23 15:22 Height 5 ft 6 in Weight 169 lb 6 oz BMI 27.3 BP 132/78 Blood Pressure Location Lt brachial Position Sitting Pulse 83 Pulse Source Pulse Oximeter Pulse Oximetry (%) 95 Oxygen Delivery Method Room Air Intake Visit Reasons: f/u Intake Note: Patient is here to follow up on HTN, CVA, Cervical radiculopathy. Transfer of care from [facility] Senior Accountant Analyst Required: No Financial Services Representative: Not Required per policy Accompanied by: Self / Same As Patient Allergies tomato Adverse Reaction (Mild, Verified 05/27/23 08:49) Hives Medication List - Last Reconciled 05/27/23 by Sumeet Bobby MD aspirin (Adult Aspirin Regimen) 81 mg PO DAILY atorvastatin 40 mg PO DAILY blood pressure monitor check BP daily lisinopril 20 mg PO DAILY meloxicam 15 mg PO DAILY sildenafil 25 mg PO DAILY PRN trazodone 25 mg (1/2 x 50 mg) PO BEDTIME PRN Tobacco use date assessed: 05/26/23 Dental Screening Dental Screen Date: 05/26/23 Did you have a dental visit in the last 12 months?: No Did you have a dental problem in the last 6 months where you did not have access to dental care?: No Was dental information given to patient?: No HPI f/u HPI Details 38-year-old male presents to the office to discuss his chronic medical conditions. I will be accepting his care as a primary provider as his current primary provider has left the practice. Patient reports that his fasciitis symptoms flare-up at least once a month. He needs to wear shoes with orthotics or extra cushion to help him walk. The flare lasts for a few days and subsides. He has history of plantar fasciitis in both his feet. He has otherwise been in good health. Compliant with all his medications. Reporting no side effects. Able to function and do all activities of daily living. He has had history of stroke with no residual paresis. 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 Able to work. 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 [facility] Medical History (Updated 05/27/23 @ 08:56 by Sumeet Bobby MD) Hypertension CVA (cerebral vascular accident) Coagulopathy Carotid stenosis Plantar fasciitis of right foot Surgical History History of appendectomy Family History Mother Mental health disorder Mother Diabetes Other Substance use disorder Social History Household Members: Spouse and Children Housing: Apartment Are you a primary health and social care teacher to a significant other at home: No Do you presently have visiting nurse or other home services: No Alcohol intake: current Alcohol intake frequency: holidays/special occasions only Alcohol type: beer and hard liquor Patient Tobacco Use Status: Current everyday Tobacco user Tobacco use type: Cigarette Cigarette Packs Per Day: 0.5 Cigarettes Per Day: 9 e-Cigarette/Vaping Use: Never Used Second Hand Smoke Exposure: Yes Substance Use Type: Marijuana service: No Current occupational status: employed Current occupation: [employer] Cognitive needs: No Hearing needs: No Vision needs: Yes (glasses) Questionnaire PHQ-9 Over the last 2 weeks, how often have you been bothered by any of the following problems? 1. Little interest or pleasure in doing things: not at all 2. Feeling down, depressed, or hopeless: not at all 3. Trouble falling or staying asleep, or sleeping too much: not at all 4. Feeling tired or having little energy: not at all 5. Poor appetite or overeating: not at all 6. Feeling bad about yourself - or that you are a failure or have let yourself or your family down: not at all 7. Trouble concentrating on things, such as reading the newspaper or watching television: not at all 8. Moving or speaking so slowly that other people could have noticed. Or the opposite - being so fidgety or restless that you have been moving around a lot more than usual: not at all 9. Thoughts that you would be better off or of hurting yourself in some way: not at all Total score: 0 Depression Screening Interpretation: Negative Depression Screening Done: Yes Source: Developed by Drs. Rakan Nguyen, Tanya Miller, Reuben Flores and colleagues, with an educational michelle from [employer]. Thrive Questionnaire Date Thrive assessed: 05/26/23 I am a: Patient What is your living situation today?: I have a steady place to live Within the past 12 months, did the food you bought not last and you didn't have the money to get more?: Never true Within the past 12 months, did you worry whether your food would run out before you got money to buy more?: Never true Do you have trouble paying for medicines?: No Do you have trouble getting transportation to medical appointments?: No Do you have trouble paying your heating and electricity bill?: No Do you have trouble taking care of your child, family member or friend?: No Do you have trouble with day-to-day activities such as bathing, preparing meals, shopping, managing finances, etc.?: No Are you currently unemployed and looking for a job?: No Are you interested in more education?: No Currently or been in a relationship where the following occur: no concerns reported THRIVE Score: 0 AUDIT C Alcohol Use Questionnaire (AUDIT-C) 1. How often do you have a drink containing alcohol?: Monthly or less 2. How many drinks containing alcohol do you have on a typical day when you are drinking?: 1 or 2 Total Score: 1 DIOGENES-7 AMB Questionnaire DIOGENES-7 Date DIOGENES - 7 assessed: 05/26/23 Feeling nervous, anxious, or on edge: 0 = Not at all Not being able to stop or control worryin = Not at all Worrying too much about different things: 0 = Not at all Trouble relaxin = Not at all Being so restless that it is hard to sit still: 0 = Not at all Becoming easily annoyed or irritable: 0 = Not at all Feeling afraid as if something awful might happen: 0 = Not at all Total DIOGENES-7 score (0-4 normal; 5-9 mild; 10-14 moderate; 15-21 severe): 0 Source: Developed by Drs. Rakan Nguyen, Tanya Miller, Reuben Flores and colleagues, with an educational michelle from [employer]. Physical exam (Primary Care) Vital Signs: Last Vital Signs Pulse 83 05/26/23 15:22 BP 132/78 05/26/23 15:22 Pulse Ox 95 05/26/23 15:22 Oxygen Delivery Method Room Air 05/26/23 15:22 BMI result Body Mass Index 27.3 Tobacco/Smoking Status: Tobacco use Status Tobacco use date assessed 05/26/23 05/26/23 15:28 Patient Tobacco Use Status Current everyday Tobacco 05/26/23 15:28 Tobacco use type Cigarette 05/26/23 15:28 e-Cigarette/Vaping Use Never Used 05/26/23 15:28 PHQ-9: PHQ-9 Score PHQ-9: Total score 0 05/26/23 15:38 Depression Screening Interpretation: Negative Thrive Assessment: Date of Thrive Assessment Date Thrive assessed 05/26/23 05/26/23 15:28 Currently or been in a relationship where the following occur: no concerns reported Const General: cooperative and healthy appearing Nutritional Appearance: well nourished Orientation/consciousness: patient oriented x3 Limitations: no limitations HENMT Head: Yes normal to inspection Eyes General: appearance normal, both eyes and all related structures Neck Neck: Yes normal visual inspection Chest Chest palpation & inspection: normal palpation of entire chest wall Resp Effort & Inspection: normal respiratory effort Neuro General: patient oriented x3 Extrem Other: Right and left feet: No swelling or tenderness. Assessment and Plan Assessment & Plan (1) Hypertension: Code(s): I10 - Essential (primary) hypertension Qualifiers: Hypertension type: primary hypertension Qualified Code(s): I10 - Essential (primary) hypertension Plan: Blood pressure is stable. Continue current medications. Blood work has been ordered. (2) CVA (cerebral vascular accident): Code(s): I63.9 - Cerebral infarction, unspecified Qualifiers: CVA mechanism: embolism Precerebral and cerebral artery: middle cerebral artery Laterality of affected vessel: right Qualified Code(s): I63.411 - Cerebral infarction due to embolism of right middle cerebral artery Plan: MRI and CT scan reviewed. Patient has had infarcts. (3) Plantar fasciitis of right foot: Code(s): M72.2 - Plantar fascial fibromatosis Plan: I advised the patient to use meloxicam intermittently. Stay off the foot when he has a flare-up of symptoms. Orders: Orders Basic Metabolic Panel 05/26/23 I10 - Essential (primary) hypertension Lipid Panel 05/26/23 I10 - Essential (primary) hypertension UA and rflx microscopic 05/26/23 I10 - Essential (primary) hypertension Liver Panel 05/26/23 I10 - Essential (primary) hypertension Thyroid Stimulating Hormone 05/26/23 I10 - Essential (primary) hypertension Complete Blood Count no Diff 05/26/23 I10 - Essential (primary) hypertension Medications: New meloxicam 15 mg PO DAILY 14 tabs 0RF Refilled sildenafil administer 30 minutes to 4 hours before activity 25 mg PO DAILY PRN 14 tabs 0RF sexual activity N52.9 - Male erectile dysfunction, unspecified Coding Level of Care Code Est Pt Level 4 (57115) Diagnoses Primary hypertension I10 Hypertension type: primary hypertension Cerebrovascular accident (CVA) due to embolism of right middle cerebral artery I63.411 CVA mechanism: embolism Precerebral and cerebral artery: middle cerebral artery Laterality of affected vessel: right Plantar fasciitis of right foot M72.2
[2023-05-26 15:22] VITALS: BP 132/78; PULSE 83; O2SAT 95; BMI 27.3
== END 2023-05-26 15:44 | disposition home or self-care (01) ==
PROVIDERS: PCP Nurse Practitioner Family; Visit Provider Internal Medicine
DX: I10 Essential (primary) hypertension (principal); I63.411 Cerebral infarction due to embolism of right middle cerebral artery; M72.2 Plantar fascial fibromatosis
CPT/HCPCS: 99214

== ENCOUNTER 2023-06-09 13:26 | Outpatient (REF) | payer OTHER, SELFPAY ==
--- NOTE | ~2023-06-09 | US_ITS ---
EXAMINATION: US CAROTID DUPLEX, BILATERAL CLINICAL INFORMATION: Occlusion and stenosis of carotid artery. COMPARISON: Ultrasound carotid 04/22/2022. TECHNIQUE: Real-time ultrasound and Doppler techniques (integrating B-mode 2-D vascular images, Doppler spectral analysis and color-flow Doppler imaging) were utilized to interrogate the extracranial carotid arteries, the vertebral arteries and proximal subclavian arteries bilaterally. The degree of stenosis is determined by criteria similar to NASCET. FINDINGS: RIGHT SIDE: 1. There is severe occlusive atherosclerotic plaque seen in the bifurcation/proximal ICA region. 2. The common carotid and right internal carotid artery are completely occluded. 3. There is flow in the external carotid artery, PSV is between 52 and 101 cm/s. 4. The vertebral artery shows antegrade flow. 5. The subclavian artery waveforms are normal. LEFT SIDE: 1. There is no significant atherosclerotic plaque seen in the bifurcation/proximal ICA region. 2. The common carotid artery PSV proximally is 168 cm/s and distally 126 cm/s. 3. The proximal internal carotid artery velocities are 156 cm/s systolic and 42 cm/s diastolic. 4. The proximal external carotid artery PSV is 398 cm/s. 5. The vertebral artery shows antegrade flow. 6. The subclavian artery velocity is elevated at 283 cm/s suggesting stenosis. US/US carotid duplex BI IMPRESSION: RIGHT: Total occlusion of the right common carotid artery and internal carotid artery, but there is flow seen within the external carotid artery. LEFT: No significant plaque seen. Elevated velocities in the proximal ICA, as well as ECA, may be related to increased flow secondary to the contralateral right occlusion. At the time of the prior study, these velocities were less. There is no change in the category severity of disease when compared to the previous study dated 04/22/2022.
== END 2023-06-09 13:27 | disposition home or self-care (01) ==
LOC: HO.US 13:26
PROVIDERS: PCP Internal Medicine; Visit Provider Surgery Vascular Surgery
DX: I65.23 Occlusion and stenosis of bilateral carotid arteries (principal)
CPT/HCPCS: 93880

== ENCOUNTER 2023-06-30 12:30 | Outpatient (AMB) | payer OTHER, SELFPAY ==
--- NOTE | 2023-06-30 12:33 | AM.OFFWIN_ITS ---
Intake Vital Signs 3 06/30/23 12:34 Height 5 ft 6 in Weight 162 lb BMI 26.1 BP 118/70 Blood Pressure Location Lt brachial Position Sitting Pulse 88 Pulse Source Pulse Oximeter Temp 97.7 F Temp Source Temporal Artery Scan Pulse Oximetry (%) 100 Oxygen Delivery Method Room Air Intake Visit Reasons: EP Lft foot bruise/a sore (lobby) Intake Note: pt is here today for lft foot bruise and sore started 2 weeks ago Patient Tobacco Use Status: Current everyday Tobacco user Allergies tomato Adverse Reaction (Mild, Verified 06/30/23 12:36) Hives Do you need a note to return to daycare/school/sports/work: Yes HPI HPI Comments 2 History of Present Illness0 Details 38 y/o male patient who presents to walk in clinic with c/o a painfull Callus bottom/plantar left foot. [facility] Medical History (Updated 05/27/23 @ 08:56 by Sumeet Bobby MD) Hypertension CVA (cerebral vascular accident) Coagulopathy Carotid stenosis Plantar fasciitis of right foot Surgical History History of appendectomy Family History Mother Mental health disorder Mother Diabetes Other Substance use disorder Social History Household Members: Spouse and Children Housing: Apartment Are you a primary regular senior care provider to a significant other at home: No Do you presently have visiting nurse or other home services: No Alcohol intake: current Alcohol intake frequency: holidays/special occasions only Alcohol type: beer and hard liquor Patient Tobacco Use Status: Current everyday Tobacco user Tobacco use type: Cigarette Cigarette Packs Per Day: 0.5 Cigarettes Per Day: 9 e-Cigarette/Vaping Use: Never Used Second Hand Smoke Exposure: Yes Substance Use Type: Marijuana service: No Current occupational status: employed Current occupation: [employer] Cognitive needs: No Hearing needs: No Vision needs: Yes (glasses) Review of Systems Const All systems reviewed & are unremarkable except as noted in HPI and below Physical Exam Vital Signs: Last Vital Signs Temp 97.7 F 06/30/23 12:34 Pulse 88 06/30/23 12:34 BP 118/70 06/30/23 12:34 Pulse Ox 100 06/30/23 12:34 Oxygen Delivery Method Room Air 06/30/23 12:34 BMI result Body Mass Index 26.1 Extrem Left lower extremity: foot Details: tenderness Location: of the plantar foot Location: distally and toes with normal ROM; no edema and no crepitus Ankle/foot/toe images: 2 1. Small callus Assessment & Plan Assessment & Plan (1) Callus of foot: Code(s): L84 - Corns and callosities Plan: - Wear comfortable shoes - Ibuprofen for pain relief. Medications: New 2 ibuprofen 800 mg PO Q8H 30 tabs 0RF L84 - Corns and callosities Coding Level of Care Code Est Pt Level 3 (02315) Diagnoses Callus of foot L84 Time Spent (min) 15
[2023-06-30 12:34] VITALS: BP 118/70; PULSE 88; TEMP 36.5; O2SAT 100; BMI 26.1
== END 2023-06-30 13:01 | disposition home or self-care (01) ==
PROVIDERS: PCP Internal Medicine; Visit Provider Nurse Practitioner Family
DX: L84 Corns and callosities (principal)
CPT/HCPCS: 99213

== ENCOUNTER 2023-07-20 19:16 | Emergency (ER) | payer OTHER, SELFPAY | END 2023-07-20 21:02 | disposition left against medical advice (07) | PROVIDERS: Emergency Provider Emergency Medicine; PCP Internal Medicine | DX: Z04.2 Encounter for examination and observation following work accident (principal) ==

== ENCOUNTER 2023-07-21 10:59 | Outpatient (AMB) | payer OTHER, SELFPAY ==
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
[2023-07-21 11:20] VITALS: BP 128/76; PULSE 82; TEMP 36.6; O2SAT 98; BMI 25.8
== END 2023-07-21 13:15 | disposition home or self-care (01) ==
PROVIDERS: PCP Internal Medicine; Visit Provider Nurse Practitioner Family
DX: R06.02 Shortness of breath (principal); Z77.098 Contact with and (suspected) exposure to other hazardous, chiefly nonmedicinal, chemicals; Z04.2 Encounter for examination and observation following work accident
CPT/HCPCS: 99213

== ENCOUNTER 2023-08-23 20:27 | Emergency (ER) | payer SELFPAY ==
--- NOTE | ~2023-08-23 | CT_ITS ---
EXAMINATION: CT HEAD WITHOUT CONTRAST (STROKE PROTOCOL) CLINICAL INFORMATION: Stroke protocol. l hemiparesis, ica disease COMPARISON: Multiple prior studies. Most recent exam CT head September 30, 2022 and MR brain April 29, 2021. TECHNIQUE: Contiguous axial imaging was performed from the skull base to vertex without intravenous administration of contrast. Coronal and sagittal reformatted images are performed at the CT scanner. This CT examination was performed using dose optimization techniques as appropriate, variously including the following: *Automated exposure control *Adjustment of mA and/or kV according to patient size (this includes techniques or standardized protocols for targeted exams where dose is matched to indication/reason for exam; i.e. extremities or head) *Use of iterative reconstruction technique DLP: 587 mGy-cm FINDINGS: Multifocal low attenuating areas involving webster and white matter in the right frontal parietal lobe in the MCA territory are now more pronounced than compared to the prior CAT scan September 30, 2022. Changes may therefore be chronic versus acute on chronic. MRI of the brain and/or CT angiogram head would be helpful for further evaluation. No acute intracranial hemorrhage. No mass effect. No extra-axial collection. CT/CT head for stroke IMPRESSION: Multifocal low attenuating areas involving webster and white matter in the right frontal parietal lobe in the MCA territory are now more pronounced than compared to the prior CAT scan September 30, 2022. Changes may therefore be chronic versus acute on chronic. MRI of the brain and/or CT angiography head Would be helpful for further evaluation. This critical result was discussed with Dr. Persaud at 2049 hours on 08/23/2023. It was ascertained that the content and urgency of the report was understood at the time of direct communication.
--- NOTE | ~2023-08-23 | CT_ITS ---
EXAMINATION: CT ANGIOGRAM HEAD CT ANGIOGRAM NECK CLINICAL INFORMATION: Reason for Exam l weakness, ica disease COMPARISON: Same day head CT, MRI brain 04/29/2021 and CTA 04/28/2021 TECHNIQUE: Test bolus sequences followed by intravenous administration 70 mL of Omnipaque 350. Helical imaging was performed in the axial plane from the aortic arch to the skull vertex. Delayed postcontrast imaging of the head was also performed. The data was processed at the senior technologist's workstation for generation of MIP sequences. Angled MIPs and volume rendered reformatted images were also generated at an offline 3D workstation. Stenoses are assessed in accordance with Gianluca et al. Quantification of Carotid Stenosis on CT Angiography. AJR 2006. 27(1):13-19. This CT examination was performed using dose optimization techniques as appropriate, variously including the following: *Automated exposure control *Adjustment of mA and/or kV according to patient size (this includes techniques or standardized protocols for targeted exams where dose is matched to indication/reason for exam; i.e. extremities or head) *Use of iterative reconstruction technique DLP: 1439.64 mGy-cm FINDINGS: CT HEAD: Chronic right MCA territory infarcts in the right frontoparietal lobes, right insula, and right caudate nucleus redemonstrated. No definite new territorial loss of webster-white differentiation since 09/30/2012. Ex vacuo dilatation of the right lateral ventricle. No acute intracranial hemorrhage or extra-axial fluid collection. No mass lesion, significant mass effect, or herniation pattern. No pathologic intra-axial enhancement or regional oligemia. The orbits are grossly normal. Mild patchy paranasal sinus mucosal disease. No mastoid effusion. Osseous structures are intact. CTA HEAD: Venous contamination limits assessment of the distal intracranial vasculature. The intracranial right internal carotid artery remains occluded throughout the reconstituted moderately narrowed cavernous through supraclinoid segments. Redemonstrated smaller caliber right HUEY and MCA branches. Redemonstrated severe luminal narrowing/stenosis at the right A1 HUEY proximal segment. Asymmetric collateral vessels are seen within the right aspect of the suprasellar cistern. Otherwise the intracranial vasculature is widely patent. No aneurysms and no high flow vascular malformations. Timing of the contrast bolus allows assessment of the major dural venous sinuses, which all opacify normally CTA NECK: Classic 3 vessel branching pattern of the aortic arch. Origins of the great vessels are widely patent. The common carotid arteries are widely patent. Redemonstrated mild atherosclerotic disease at the left carotid bifurcation without associated stenosis of the left ICA origin. The right common carotid artery is occluded just beyond its origin throughout the remainder of its cervical segment, new since prior CTA however seen on carotid ultrasound from 06/09/2023. Redemonstrated chronically occluded right ICA. The left ECA and its branches remain patent. The vertebral arteries are codominant The vertebral artery ostia are widely patent. Stable moderate focal stenosis of the proximal right V1 vertebral artery just beyond its origin with mural soft tissue thickening, may reflect fibrofatty plaque versus sequela of prior dissection. Vertebral arteries are widely patent throughout their extracranial cervical course. CT NECK: Carious maxillary and mandibular dentition. Bilateral palatine calcified tonsilloliths. CT/CT angio head neck stroke IMPRESSION: 1. Chronic right MCA territory infarct without CT evidence of acute intracranial abnormality, noting MRI would be more sensitive for assessment for superimposed acute ischemia. 2. The right common carotid artery is occluded just beyond its origin throughout the remainder of its cervical segment, new since prior CTA however seen on carotid ultrasound from 06/09/2023. Redemonstrated chronically occluded right ICA throughout the reconstituted moderately narrowed right cavernous through supraclinoid ICA segments. Stable smaller caliber right MCA and HUEY vasculature. No progressive steno-occlusive disease in the head or neck.
--- NOTE | 2023-08-23 20:32 | ECG_ITS ---
Test Reason : CHEST PAIN Blood Pressure : / mmHG Vent. Rate : 088 BPM Atrial Rate : 088 BPM P-R Int : 168 ms QRS Dur : 080 ms QT Int : 374 ms P-R-T Axes : 068 047 067 degrees QTc Int : 452 ms Normal sinus rhythm Normal ECG When compared with ECG of 05-OCT-2022 18:14, No significant change was found Referred By: Amarjit Mayo Electronically Signed By:HEMALATHA BRUNSON MD
[2023-08-23 20:34] LABS: Prothrombin Time Whole Bld POC 12.7 sec (11.1-13.5); ~PT, ~INR - Anti Coag Clinic 1.1 (0.9-1.1)
--- NOTE | 2023-08-23 20:34 | ED_ITS ---
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 on the left side again was unable to lift his left hand or leg no headache no shortness a breath no dysarthria no headache patient also complaining of chest pain after arrival Related Data Home Medications ?Medication ?Instructions ?Recorded ?Confirmed aspirin 81 mg tablet,delayed 81 mg PO DAILY 06/16/21 08/23/23 release (Adult Aspirin Regimen) ibuprofen 800 mg tablet 800 mg PO NEEDED 08/23/23 08/23/23 Previous Rx's ?Medication ?Instructions ?Recorded trazodone 50 mg tablet 25 mg (1/2 x 50 mg) PO BEDTIME PRN 07/08/22 sleep #7 tabs blood pressure monitor #1 ea 10/07/22 atorvastatin 40 mg tablet 40 mg PO DAILY #90 tabs 04/04/23 lisinopril 20 mg tablet 20 mg PO DAILY #30 tabs 05/22/23 sildenafil 25 mg tablet 25 mg PO DAILY PRN sexual activity 05/26/23 #14 tabs Allergies Allergy/AdvReac Type Severity Reaction Status Date / Time tomato AdvReac Mild Hives Verified 08/23/23 21:05 Review of Systems 2 Review of Systems: Yes all other systems are reviewed and are negative [facility] Past Medical History Medical History Hypertension CVA (cerebral vascular accident) Coagulopathy Carotid stenosis Plantar fasciitis of right foot Surgical History History of appendectomy Family History Family History Mother Mental health disorder Mother Diabetes Other Substance use disorder Social History Social History Household Members: Spouse and Children Housing: Apartment Are you a primary menagerie caretaker to a significant other at home: No Do you presently have visiting nurse or other home services: No Alcohol intake: current Alcohol intake frequency: holidays/special occasions only Alcohol type: beer and hard liquor Patient Tobacco Use Status: Current everyday Tobacco user Tobacco use type: Cigarette Cigarette Packs Per Day: 0.5 Cigarettes Per Day: 9 Smoked in Last 30 Days: Yes e-Cigarette/Vaping Use: Never Used Second Hand Smoke Exposure: Yes Use of substances other than those prescribed or required for medical reasons: Yes Substance Use Type: Marijuana Advance Directives: No Advance Directives Information Provided: No service: No Current occupational status: employed Current occupation: [employer] Cognitive needs: No Hearing needs: No Vision needs: Yes (glasses) Physical Exam 2 Vital Signs: Vital Signs: Last Vital Signs Temp 99 F 08/23/23 21:03 Pulse 80 08/23/23 21:03 Resp 16 08/23/23 21:03 BP 139/92 H 08/23/23 21:03 Pulse Ox 98 08/23/23 21:03 O2 Del Method Room Air 08/23/23 21:03 BMI result Body Mass Index 23.1 Appearance: Alert. Oriented X3. No acute distress. Eyes: PERRLA, No Nystagmus ENT: Pharynx normal. Oral Mucosa moist Neck: Normal inspection. Neck supple. CVS: Normal heart rate and rhythm. Pulses normal. Respiratory: No respiratory distress. Equal air entry bilateral, no wheezing/rales/rhonchi Abdomen: Soft and nontender. Bowel sounds are present, no mass palpable, no CVA tenderness Skin: Skin warm and dry. Normal skin color. Normal skin turgor. Extremities: No lower extremity edema. No calf tenderness Neuro: Oriented X 3. Left upper extremity 2/5 LLE 2/5 No sensory deficit.No cerebellar signs , cranial nerves II-XII intact Medications Administered Discontinued Medications Generic Name Dose Route Start Last Admin Trade Name Freq PRN Reason Stop Dose Admin Iohexol 70 ml 08/23/23 20:52 08/23/23 20:52 Iohexol 350 Mg/Ml 100 Ml Infus..Btl IV 08/23/23 20:53 70 ml ONCE ONE Administration Tenecteplase 18 mg 08/23/23 20:49 06/04/24 20:59 Tenecteplase 50 Mg/10 Ml Kit IVPUSH 08/23/23 20:50 18 mg ONCE ONE Administration Medical Decision Making Medical Decision Making [facility] Narrative: Patient with hypercoagulable state with history of PE and CVA with right ICA and, not carotid artery occlusion on aspirin and statin comes here for recurrence of the weakness of the left side started at 19:30 on arrival patient had NIHSS score of 4 TNK was given. Case discussed with Dr. Man neurologist advised the patient should go to tertiary center for extensive disease and high- risk for recurrence of the CVA. Case discussed Dr Melgar neuro interventional at [facility] accepted patient in ED for evaluation Differential Diagnosis Differential Diagnoses: The differential diagnosis associated with the presentation includes CVA/ TIA Admission/Observation Consideration of admission/observation: Escalation of care including admission/observation considered Consult Healthcare Provider Management of the patient was discussed with: Teletypesetter Operator Neurologist Dr. Man Lab Data [facility] Lab Attestation statement: I reviewed the patient's lab results. 08/23/23 21:07 08/23/23 21:07 Labs: Lab Results 08/23/23 08/23/23 08/23/23 Range/Units 20:31 21:07 21:17 WBC 8.2 (4.8-10.8) X10*3/uL RBC 5.16 (4.60-5.80) X10*6/uL Hgb 15.3 (14.0-18.0) g/dl Hct 43.3 (42.0-52.0) % MCV 83.9 (80.0-98.0) fL MCH 29.7 (27.0-33.0) pg MCHC 35.3 (31.0-36.0) g/dl RDW 12.1 (11.0-16.0) % Plt Count 276 (160-400) X10*3/uL MPV 9.0 L (9.4-12.4) fL Immature Gran % (Auto) 0.2 (0.0-0.4) % Neut % (Auto) 76.4 H (45-73) % Lymph % (Auto) 15.7 L (20-40) % Lanier % (Auto) 6.4 (2-11) % Eos % (Auto) 0.6 (0-4) % Baso % (Auto) 0.7 (0-2) % Lymph # (Auto) 1.3 (1.2-4.9) X10*3/uL Lanier # (Auto) 0.5 (0.1-1.2) X10*3/uL Eos # (Auto) 0.1 (0.0-0.4) X10*3/uL Baso # (Auto) 0.1 (0.0-0.2) X10*3/uL Abs Immat Gran (auto) 0.02 (0.00-0.03) X10*3/uL Absolute Neuts (auto) 6.3 (2.0-8.3) x10*3/uL Absolute Nucleated RBC 0.000 (0.0-0.012) X10*3/uL Nucleated RBC % (auto) 0.0 (0.0-0.2) /100WBC PT 12.1 (11.1-13.3) SEC Whole Blood PT 12.7 (11.1-13.5) sec INR 1.0 (0.9-1.1) Whole Blood INR 1.1 (0.9-1.1) APTT 31.2 (26.0-36.8) SEC Sodium 138 (135-145) mmol/L Potassium 3.5 (3.3-5.1) mmol/L Chloride 103 (96-108) mmol/L Carbon Dioxide 22 (22-29) mmol/L Anion Gap 17 (12-20) BUN 19 H (9-16) mg/dL Creatinine 0.92 (0.5-1.4) mg/dL Estim Creat Clear Calc 107.8 Estimated GFR > 60 Random Glucose 91 (60-115) mg/dL Calcium 10.0 (8.4-10.2) mg/dL Total Creatine Kinase 615 H (38-174) U/L Troponin I High Sens < 2.7 (<3.5-35.0) ng/L Urine Color Dark Yellow Urine Appearance Clear Urine pH 5.5 (5.0-9.0) Ur Specific Webster >= 1.030 H (1.005-1.025) Urine Protein Trace (Neg-Trace) mg/dL Urine Glucose (UA) Negative (Negative) mg/dL Urine Ketones 15 (Negative) mg/dL Urine Blood Negative (Negative) Urine Nitrite Negative (Negative) Ur Leukocyte Esterase Negative (Negative) Urine Opiates Screen (Not Detect) Ur Buprenorphine Scrn (Not Detect) ng/mL Ur Oxycodone Screen (Not Detect) ng/mL Urine Methadone Screen (Not Detect) ng/mL Urine Fentanyl Screen (Not Detect) Ur Barbiturates Screen (Not Detect) Ur Phencyclidine Scrn (Not Detect) Ur Amphetamines Screen (Not Detect) U Benzodiazepines Scrn (Not Detect) Urine Cocaine Screen (Not Detect) U Marijuana (THC) Screen (Not Detect) 08/23/23 Range/Units 21:19 WBC (4.8-10.8) X10*3/uL RBC (4.60-5.80) X10*6/uL Hgb (14.0-18.0) g/dl Hct (42.0-52.0) % MCV (80.0-98.0) fL MCH (27.0-33.0) pg MCHC (31.0-36.0) g/dl RDW (11.0-16.0) % Plt Count (160-400) X10*3/uL MPV (9.4-12.4) fL Immature Gran % (Auto) (0.0-0.4) % Neut % (Auto) (45-73) % Lymph % (Auto) (20-40) % Lanier % (Auto) (2-11) % Eos % (Auto) (0-4) % Baso % (Auto) (0-2) % Lymph # (Auto) (1.2-4.9) X10*3/uL Lanier # (Auto) (0.1-1.2) X10*3/uL Eos # (Auto) (0.0-0.4) X10*3/uL Baso # (Auto) (0.0-0.2) X10*3/uL Abs Immat Gran (auto) (0.00-0.03) X10*3/uL Absolute Neuts (auto) (2.0-8.3) x10*3/uL Absolute Nucleated RBC (0.0-0.012) X10*3/uL Nucleated RBC % (auto) (0.0-0.2) /100WBC PT (11.1-13.3) SEC Whole Blood PT (11.1-13.5) sec INR (0.9-1.1) Whole Blood INR (0.9-1.1) APTT (26.0-36.8) SEC Sodium (135-145) mmol/L Potassium (3.3-5.1) mmol/L Chloride (96-108) mmol/L Carbon Dioxide (22-29) mmol/L Anion Gap (12-20) BUN (9-16) mg/dL Creatinine (0.5-1.4) mg/dL Estim Creat Clear Calc Estimated GFR Random Glucose (60-115) mg/dL Calcium (8.4-10.2) mg/dL Total Creatine Kinase (38-174) U/L Troponin I High Sens (<3.5-35.0) ng/L Urine Color Urine Appearance Urine pH (5.0-9.0) Ur Specific Webster (1.005-1.025) Urine Protein (Neg-Trace) mg/dL Urine Glucose (UA) (Negative) mg/dL Urine Ketones (Negative) mg/dL Urine Blood (Negative) Urine Nitrite (Negative) Ur Leukocyte Esterase (Negative) Urine Opiates Screen Not Detected (Not Detect) Ur Buprenorphine Scrn Not Detected (Not Detect) ng/mL Ur Oxycodone Screen Not Detected (Not Detect) ng/mL Urine Methadone Screen Not Detected (Not Detect) ng/mL Urine Fentanyl Screen POSITIVE H (Not Detect) Ur Barbiturates Screen Not Detected (Not Detect) Ur Phencyclidine Scrn Not Detected (Not Detect) Ur Amphetamines Screen Not Detected (Not Detect) U Benzodiazepines Scrn Not Detected (Not Detect) Urine Cocaine Screen Not Detected (Not Detect) U Marijuana (THC) Screen POSITIVE H (Not Detect) Independent Interpretation I performed an independent interpretation of an: EKG and CT Scan Interpretation: Normal sinus rhythm heart rate 88 beats per minute normal interval normal axis no acute ST T wave changes no acute ischemia Radiology Impression Radiologist Impression: [address] [address] [address] Scan Report Signed Patient: Sánchez Camarena MR#: [id number] : 1985 Acct:[id number] Age/Sex: 38 / M ADM Date: 08/23/23 Loc: HO.ED Attending Dr: Ordering Physician: Amarjit Mayo MD Date of Service: 08/23/23 Procedure(s): CT angio head neck stroke Accession Number(s): [id number] cc: Amarjit Mayo MD~ EXAMINATION: CT ANGIOGRAM HEAD CT ANGIOGRAM NECK CLINICAL INFORMATION: Reason for Exam l weakness, ica disease COMPARISON: Same day head CT, MRI brain 04/29/2021 and CTA 04/28/2021 TECHNIQUE: Test bolus sequences followed by intravenous administration 70 mL of Omnipaque 350. Helical imaging was performed in the axial plane from the aortic arch to the skull vertex. Delayed postcontrast imaging of the head was also performed. The data was processed at the arrt technologist's workstation for generation of MIP sequences. Angled MIPs and volume rendered reformatted images were also generated at an offline 3D workstation. Stenoses are assessed in accordance with Hough et al. Quantification of Carotid Stenosis on CT Angiography. AJR 2006. 27(1):13-19. This CT examination was performed using dose optimization techniques as appropriate, variously including the following: *Automated exposure control *Adjustment of mA and/or kV according to patient size (this includes techniques or standardized protocols for targeted exams where dose is matched to indication/reason for exam; i.e. extremities or head) *Use of iterative reconstruction technique DLP: 1439.64 mGy-cm FINDINGS: CT HEAD: Chronic right MCA territory infarcts in the right frontoparietal lobes, right insula, and right caudate nucleus redemonstrated. No definite new territorial loss of webster-white differentiation since 09/30/2012. Ex vacuo dilatation of the right lateral ventricle. No acute intracranial hemorrhage or extra-axial fluid collection. No mass lesion, significant mass effect, or herniation pattern. No pathologic intra-axial enhancement or regional oligemia. The orbits are grossly normal. Mild patchy paranasal sinus mucosal disease. No mastoid effusion. Osseous structures are intact. CTA HEAD: Venous contamination limits assessment of the distal intracranial vasculature. The intracranial right internal carotid artery remains occluded throughout the reconstituted moderately narrowed cavernous through supraclinoid segments. Redemonstrated smaller caliber right HUEY and MCA branches. Redemonstrated severe luminal narrowing/stenosis at the right A1 HUEY proximal segment. Asymmetric collateral vessels are seen within the right aspect of the suprasellar cistern. Otherwise the intracranial vasculature is widely patent. No aneurysms and no high flow vascular malformations. Timing of the contrast bolus allows assessment of the major dural venous sinuses, which all opacify normally CTA NECK: Classic 3 vessel branching pattern of the aortic arch. Origins of the great vessels are widely patent. The common carotid arteries are widely patent. Redemonstrated mild atherosclerotic disease at the left carotid bifurcation without associated stenosis of the left ICA origin. The right common carotid artery is occluded just beyond its origin throughout the remainder of its cervical segment, new since prior CTA however seen on carotid ultrasound from 06/09/2023. Redemonstrated chronically occluded right ICA. The left ECA and its branches remain patent. The vertebral arteries are codominant The vertebral artery ostia are widely patent. Stable moderate focal stenosis of the proximal right V1 vertebral artery just beyond its origin with mural soft tissue thickening, may reflect fibrofatty plaque versus sequela of prior dissection. Vertebral arteries are widely patent throughout their extracranial cervical course. CT NECK: Carious maxillary and mandibular dentition. Bilateral palatine calcified tonsilloliths. CT/CT angio head neck stroke IMPRESSION: 1. Chronic right MCA territory infarct without CT evidence of acute intracranial abnormality, noting MRI would be more sensitive for assessment for superimposed acute ischemia. 2. The right common carotid artery is occluded just beyond its origin throughout the remainder of its cervical segment, new since prior CTA however seen on carotid ultrasound from 06/09/2023. Redemonstrated chronically occluded right ICA throughout the reconstituted moderately narrowed right cavernous through supraclinoid ICA segments. Stable smaller caliber right MCA and HUEY vasculature. No progressive steno-occlusive disease in the head or neck. Dictated By: Lacy Em Signed By: <Electronically signed by Lacy Em in OV> 08/23/232117 DD/ 50 TD/TT: Frame Feeder: NIH Stroke Scale Internal: Initial- Upon Arrival Level of Consciousness: Alert Level of Consciousness Questions: Answers both questions correctly Level of Consciousness Commands: Performs both tasks correctly Best Gaze: Normal Visual: No visual loss Facial Palsy: Normal Motor Arm (Right): No drift Motor Arm (Left): Some effort against gravity Motor Leg (Right): No drift Motor Leg (Left): Some effort against gravity Limb Ataxia: Absent Sensory: Normal Best Language: No aphasia Dysarthia: Normal Extinction and Inattention: No abnormality Score: 4 Discharge Plan Discharge Clinical Impression: CVA (cerebral vascular accident) Qualifiers: CVA mechanism: embolism Precerebral and cerebral artery: middle cerebral artery Laterality of affected vessel: right Qualified Code(s): I63.411 - Cerebral infarction due to embolism of right middle cerebral artery Carotid stenosis Qualifiers: Laterality: bilateral Qualified Code(s): I65.23 - Occlusion and stenosis of bilateral carotid arteries Patient Disposition: [facility] Hospital Transfer Details: [facility] Prescriptions: No Action (DME) blood pressure monitor Kit See Rx Instructions .Route Qty: 1 0RF Rx Instructions: check BP daily atorvastatin 40 mg tablet 40 mg PO DAILY Qty: 90 1RF lisinopril 20 mg tablet 20 mg PO DAILY Qty: 30 2RF ibuprofen 800 mg tablet 800 mg PO NEEDED sildenafil 25 mg tablet 25 mg PO DAILY PRN (Reason: sexual activity) Qty: 14 0RF Rx Instructions: administer 30 minutes to 4 hours before activity aspirin [Adult Aspirin Regimen] 81 mg tablet,delayed release (DR/EC) 81 mg PO DAILY trazodone 50 mg tablet 25 mg PO BEDTIME PRN (Reason: sleep) Qty: 7 0RF Print Language: Rwandan
[2023-08-23 20:36] VITALS: BP 132/88; PULSE 96; O2SAT 100
[2023-08-23] MEDS: iohexoL 350 MG/ML 100 ML INFUS..BTL 70 ML IV (20:52)
[2023-08-23 20:53] VITALS: BMI 23.1
[2023-08-23] MEDS: Tenecteplase 50 MG/10 ML KIT 18 MG IVPUSH (20:59)
--- NOTE | 2023-08-23 21:00 | PC.NURSE ---
Pt BIBA, reports calling EMS from work after sudden onset of confusion, drooling, tongue numbness/heavy feeling and left hand numbness. Pt reports he was driving and at work when symptoms started. Pt reports shortly after substernal CP radiating to left side. PERRL, no facial droop noted, left arm and left leg with paralysis. Pt is able to feel touch to extremities.
[2023-08-23 21:03] VITALS: BP 139/92; PULSE 80; RESP 16; TEMP 37.2; O2SAT 98; BMI 23.1
[2023-08-23 21:13] LABS: MANUAL DIFF FLAG NO
[2023-08-23 21:14] LABS: Basophils Absolute Auto 0.1 X10*3/uL (0.0-0.2); Basophils Percent Auto 0.7 % (0-2); Eosinophils Absolute Auto 0.1 X10*3/uL (0.0-0.4); Eosinophils Percent Auto 0.6 % (0-4); Hematocrit 43.3 % (42.0-52.0); Hemoglobin 15.3 g/dl (14.0-18.0); Imm Gran Abs Auto 0.02 X10*3/uL (0.00-0.03); Imm Gran Pct Auto 0.2 % (0.0-0.4); Lymphocytes Absolute Auto 1.3 X10*3/uL (1.2-4.9); Lymphocytes Percent Auto 15.7 % (20-40); Mean Corpuscular HGB Conc 35.3 g/dl (31.0-36.0); Mean Corpuscular Hemoglobin 29.7 pg (27.0-33.0); Mean Corpuscular Volume 83.9 fL (80.0-98.0); Monocytes Absolute Auto 0.5 X10*3/uL (0.1-1.2); Monocytes Percent Auto 6.4 % (2-11); Neutrophils Absolute Auto 6.3 x10*3/uL (2.0-8.3); Neutrophils Percent Auto 76.4 % (45-73); Platelet Count 276 X10*3/uL (160-400); Red Blood Count 5.16 X10*6/uL (4.60-5.80); Red Cell Distribution Width 12.1 % (11.0-16.0); White Blood Count 8.2 X10*3/uL (4.8-10.8)
[2023-08-23 21:20] LABS: Prothrombin Time 12.1 SEC (11.1-13.3)
[2023-08-23 21:22] LABS: Partial Thromboplastin Time 31.2 SEC (26.0-36.8)
[2023-08-23 21:28] LABS: Appearance Urine Clear; Color Urine Dark Yellow; Glucose Urine UA Negative (Negative); Leukocyte Esterase Urine Negative (Negative); Nitrite Urine Negative (Negative); PH 5.5 (5.0-9.0); Specific Gravity - Urine >= 1.030 (1.005-1.025); Urine Blood Negative (Negative); Urine Ketones 15 mg/dL (Negative); Urine Protein Trace mg/dL (Neg-Trace)
[2023-08-23 21:29] LABS: Anion Gap 17 (12-20); Blood Urea Nitrogen 19 mg/dL (9-16); Carbon Dioxide 22 mmol/L (22-29); Chloride 103 mmol/L (96-108); Creatinine Clr Calc Pharmacy 107.8; Estimated Glomerular Filt Rate > 60; Glucose Random 91 mg/dL (60-115); Potassium 3.5 mmol/L (3.3-5.1); Sodium 138 mmol/L (135-145)
[2023-08-23 21:34] LABS: Stroke Lab Use COMPLETE
[2023-08-23 21:37] LABS: Troponin-I High Sensitivity < 2.7 ng/L (<3.5-35.0)
[2023-08-23 21:38] LABS: Amphetamine Screen Urine Not Detected (Not Detect); Barbiturates, Urine Not Detected (Not Detect); Benzodiazepines Screen Urine Not Detected (Not Detect); Buprenorphine Scr Not Detected (Not Detect); Cannabinoid Screen Urine POSITIVE (Not Detect); Cocaine Screen Urine Not Detected (Not Detect); Fentanyl, urine POSITIVE (Not Detect); Methadone Screen, Urine Not Detected (Not Detect); Opiate Screen Urine Not Detected (Not Detect); Oxycodone Screen Urine Not Detected (Not Detect); Phencyclidine Screen Urine Not Detected (Not Detect)
--- NOTE | 2023-08-23 22:30 | PC.NURSE ---
Nursing swallow eval done, Pt passed. Pt requesting PO fluids.
--- NOTE | 2023-08-23 23:00 | PC.NURSE ---
Pt able to move all extremities equally, no weakness or paralysis. Pt able to stand at bedside.
[2023-08-23 23:08] VITALS: BP 110/64; PULSE 78; RESP 16; O2SAT 97
--- NOTE | 2023-08-23 23:08 | PC.NURSE ---
pt has 8/10 left sided chest pain rad to left under arm. Neeru rn made aware.
[2023-08-24 00:14] VITALS: RESP 16
[2023-08-24] MEDS: ondansetron HCL 4 MG/2 ML VIAL IVPUSH (00:14)
[2023-08-24] MEDS: Morphine Sulfate 4 MG/ML CARTRIDGE IVPUSH (00:14)
--- NOTE | 2023-08-24 00:32 | PC.NURSE ---
Pt medicated per MAY for 10/28 CP. RN to RN report given to Rita at [facility] [place], Pt will be transported via ambulance. Pt aware of plan.
[2023-08-24 00:36] VITALS: BP 116/72; PULSE 84; RESP 16; TEMP 37.2; O2SAT 98
[2023-08-24 06:36] LABS: Glucose, Whole Blood 99 mg/dL (60-115)
== END 2023-08-24 00:54 | disposition short-term general hospital (02) ==
PROVIDERS: Emergency Provider Internal Medicine
DX: I65.23 Occlusion and stenosis of bilateral carotid arteries (principal); I63.411 Cerebral infarction due to embolism of right middle cerebral artery; R29.704 NIHSS score 4; R07.89 Other chest pain; I10 Essential (primary) hypertension; F17.210 Nicotine dependence, cigarettes, uncomplicated; F12.90 Cannabis use, unspecified, uncomplicated; Z86.73 Personal history of transient ischemic attack (TIA), and cerebral infarction without residual deficits; Z86.711 Personal history of pulmonary embolism; Z79.899 Other long term (current) drug therapy
CPT/HCPCS: 36415; 70450; 70496; 70498; 80048; 80307; 81003; 82550; 82947; 84484; 85025; 85610; 85730; 93005; 96374; 96375; 99285; J2270; J2405; J3101; Q9967

== ENCOUNTER → 2023-08-23 20:32 | Outpatient (BNV) | payer OTHER, SELFPAY | PROVIDERS: Emergency Provider Internal Medicine; Visit Provider Internal Medicine Cardiovascular Disease | DX: R07.9 Chest pain, unspecified (principal) | CPT/HCPCS: 93010 ==

== ENCOUNTER 2023-09-01 13:44 | Outpatient (AMB) | payer MEDICAID, SELFPAY ==
--- NOTE | 2023-09-01 14:01 | A.OFFPC_ITS ---
Vital Signs 09/01/23 14:02 Height 5 ft 9 in Weight 150 lb 6 oz BMI 22.2 BP 114/62 Blood Pressure Location Lt brachial Position Sitting Pulse 77 Pulse Source Pulse Oximeter Pulse Oximetry (%) 94 Oxygen Delivery Method Room Air Intake [place] [facility] [place] stroke Intake Note: Patient is here for hospital discharge follow up. Patient was [place] [facility] [place] [facility] on 08/26/23. 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 Patient has history of hypercoagulable state with multi infarcts. He was recently in the hospital with left-sided weakness and CTA showed a blocked internal carotid artery. Patient received thrombolytics and was at [facility] emergency room/hospital for a few days. An EEG done at the time of discharge was unremarkable. Patient was sent home on the same medications, except the statin has been increased. Patient states that he has a Cardiology, Neurology, Hematology consult pending. These are from [facility]. He is expecting to be contacted by them directly. Patient is also reporting a 50 lb weight loss in the past 2 years. He eats once a day. Patient has history of anxiety and sees JAY and Radha for psychiatry care. He is only on trazodone for medications. Patient reports that he has returned to work but is having difficulty at work. By the end of the day his heart rate is high. He has not able to distinguish if it is due to anxiety or something else. No associated shortness of breath. Feels panicky at times. [facility] Medical History Hypertension CVA (cerebral vascular accident) Coagulopathy Carotid stenosis Plantar fasciitis of right foot Surgical History History of appendectomy Family History Mother Mental health disorder Mother Diabetes Other Substance use disorder Social History Household Members: Spouse and Children Housing: Apartment Are you a primary director career to a significant other at home: No Do you presently have visiting nurse or other home services: No Alcohol intake: current Alcohol intake frequency: holidays/special occasions only Alcohol type: beer and hard liquor Patient Tobacco Use Status: Former Tobacco user Tobacco use type: Cigarette Cigarette Packs Per Day: 0.5 Cigarettes Per Day: 9 e-Cigarette/Vaping Use: Currently Using Second Hand Smoke Exposure: Yes Substance Use Type: Marijuana service: No Current occupational status: employed Current occupation: [employer] Cognitive needs: No Hearing needs: No Vision needs: Yes (glasses) Questionnaire PHQ-9 Over the last 2 weeks, how often have you been bothered by any of the following problems? 1. Little interest or pleasure in doing things: not at all 2. Feeling down, depressed, or hopeless: several days (currently in treatment) 3. Trouble falling or staying asleep, or sleeping too much: several days 4. Feeling tired or having little energy: not at all 5. Poor appetite or overeating: several days 6. Feeling bad about yourself - or that you are a failure or have let yourself or your family down: not at all 7. Trouble concentrating on things, such as reading the newspaper or watching television: not at all 8. Moving or speaking so slowly that other people could have noticed. Or the opposite - being so fidgety or restless that you have been moving around a lot more than usual: not at all 9. Thoughts that you would be better off or of hurting yourself in some way: not at all Total score: 3 Depression Screening Interpretation: Positive Depression Screening Done: Yes Source: Developed by Drs. Rakan Nguyen, Tanya Miller, Reuben Flores and colleagues, with an educational michelle from [employer]. Thrive Questionnaire Date Thrive assessed: 05/26/23 DIOGENES-7 AMB Questionnaire DIOGENES-7 Date DIOGENES - 7 assessed: 09/01/23 Feeling nervous, anxious, or on edge: 3 = Nearly every day (Currently in treatment) Not being able to stop or control worryin = Several days Worrying too much about different things: 1 = Several days Trouble relaxin = More than half the days Being so restless that it is hard to sit still: 3 = Nearly every day Becoming easily annoyed or irritable: 0 = Not at all Feeling afraid as if something awful might happen: 0 = Not at all Total DIOGENES-7 score (0-4 normal; 5-9 mild; 10-14 moderate; 15-21 severe): 10 Source: Developed by Drs. Rakan Nguyen, Tanya Miller, Reuben Flores and colleagues, with an educational michelle from [employer]. Physical exam (Primary Care) Vital Signs: Last Vital Signs Pulse 77 09/01/23 14:02 BP 114/62 09/01/23 14:02 Pulse Ox 94 09/01/23 14:02 Oxygen Delivery Method Room Air 09/01/23 14:02 BMI result Body Mass Index 22.2 Tobacco/Smoking Status: Tobacco use Status Tobacco use date assessed 09/01/23 09/01/23 14:11 Patient Tobacco Use Status Former Tobacco user 09/01/23 14:11 Tobacco use type Cigarette 09/01/23 14:11 e-Cigarette/Vaping Use Currently Using 09/01/23 14:11 PHQ-9: PHQ-9 Score PHQ-9: Total score 3 09/01/23 14:17 Depression Screening Interpretation: Positive Thrive Assessment: Date of Thrive Assessment Date Thrive assessed 05/26/23 09/01/23 14:11 Assessment and Plan Assessment & Plan (1) Weight loss: Code(s): R63.4 - Abnormal weight loss Plan: Patient has had a 50 pound weight loss in the past few years. This is concerning and needs to be worked up. A CT scan of the abdomen has been ordered. (2) CVA (cerebral vascular accident): Code(s): I63.9 - Cerebral infarction, unspecified Qualifiers: CVA mechanism: embolism Laterality of affected vessel: right Precerebral and cerebral artery: middle cerebral artery Qualified Code(s): I63.411 - Cerebral infarction due to embolism of right middle cerebral artery Plan: Patient has multiple infarcts on the CT scan. These are stable. Hospital Discharge Summary from [facility] reviewed. Continue the Aspirin and higher dosage of statin. (3) Hypertension: Code(s): I10 - Essential (primary) hypertension Qualifiers: Hypertension type: primary hypertension Qualified Code(s): I10 - Essential (primary) hypertension Plan: BP is in range. (4) Coagulopathy: Code(s): D68.9 - Coagulation defect, unspecified Plan: Patient has a hematology appt scheduled. (5) Carotid stenosis: Comment: R ICA occlusion Code(s): I65.29 - Occlusion and stenosis of unspecified carotid artery Qualifiers: Laterality: bilateral Qualified Code(s): I65.23 - Occlusion and stenosis of bilateral carotid arteries Orders: Orders CT abdomen w IV con Today R63.4 - Abnormal weight loss Medications: Refilled trazodone 25 mg (1/2 x 50 mg) PO BEDTIME PRN 7 tabs 0RF sleep G47.00 - Insomnia, unspecified sildenafil administer 30 minutes to 4 hours before activity 25 mg PO DAILY PRN 14 tabs 0RF sexual activity N52.9 - Male erectile dysfunction, unspecified Coding Level of Care Code Est Pt Level 4 (05071) Complex EM visit Add On G2211 Diagnoses Weight loss R63.4 Cerebrovascular accident (CVA) due to embolism of right middle cerebral artery I63.411 CVA mechanism: embolism Laterality of affected vessel: right Precerebral and cerebral artery: middle cerebral artery Primary hypertension I10 Hypertension type: primary hypertension Coagulopathy D68.9 Bilateral carotid artery stenosis I65.23 Laterality: bilateral
[2023-09-01 14:02] VITALS: BP 114/62; PULSE 77; O2SAT 94; BMI 22.2
== END 2023-09-01 14:39 | disposition home or self-care (01) ==
PROVIDERS: PCP Internal Medicine; Visit Provider Internal Medicine
DX: R63.4 Abnormal weight loss (principal); I63.411 Cerebral infarction due to embolism of right middle cerebral artery; I10 Essential (primary) hypertension; D68.9 Coagulation defect, unspecified; I65.23 Occlusion and stenosis of bilateral carotid arteries
CPT/HCPCS: 99214; G2211

== ENCOUNTER 2023-09-06 10:25 | Emergency (ER) | payer OTHER, SELFPAY ==
[2023-09-06 10:44] VITALS: BP 124/73; PULSE 84; RESP 18; TEMP 36.6; O2SAT 100; BMI 24.0
== END 2023-09-06 13:35 | disposition left against medical advice (07) ==
PROVIDERS: Emergency Provider Emergency Medicine; PCP Internal Medicine
DX: Z53.21 Procedure and treatment not carried out due to patient leaving prior to being seen by health care provider (principal); R10.9 Unspecified abdominal pain
CPT/HCPCS: 99281

== ENCOUNTER 2023-09-13 14:07 | Outpatient (AMB) | payer MEDICAID, SELFPAY ==
--- NOTE | 2023-09-13 14:30 | AM.OFFWIN_ITS ---
Intake Vital Signs 09/13/23 14:32 Height 5 ft 9 in BP 120/76 Blood Pressure Location Lt brachial Position Sitting Pulse 81 Pulse Source Pulse Oximeter Temp 97.9 F Temp Source Oral Pulse Oximetry (%) 97 Oxygen Delivery Method Room Air Intake Visit Reasons: EP constipation f/u return to work clearance Intake Note: pt is here for work to return work Patient Tobacco Use Status: Former Tobacco user Allergies tomato Adverse Reaction (Mild, Verified 09/13/23 14:33) Hives Do you need a note to return to daycare/school/sports/work: No HPI HPI Comments History of Present Illness Details Patient presents today requesting a return to work note. He was apparently scheduled for a CT by his PCP which was rescheduled. His PCP did not want him to work till after the CT scan but he is here today requesting a return to work note due to financial reasons. He states he is pain-free and gaining weight. [facility], [facility] Medical History Hypertension CVA (cerebral vascular accident) Coagulopathy Carotid stenosis Plantar fasciitis of right foot Surgical History History of appendectomy Family History Mother Mental health disorder Mother Diabetes Other Substance use disorder Social History Household Members: Spouse and Children Housing: Apartment Are you a primary healthcare advisory services manager to a significant other at home: No Do you presently have visiting nurse or other home services: No Alcohol intake: current Alcohol intake frequency: holidays/special occasions only Alcohol type: beer and hard liquor Patient Tobacco Use Status: Former Tobacco user Tobacco use type: Cigarette Cigarette Packs Per Day: 0.5 Cigarettes Per Day: 9 e-Cigarette/Vaping Use: Currently Using Second Hand Smoke Exposure: Yes Substance Use Type: Marijuana service: No Current occupational status: employed Current occupation: [employer] Cognitive needs: No Hearing needs: No Vision needs: Yes (glasses) Review of Systems Const All systems reviewed & are unremarkable except as noted in HPI and below Physical Exam Vital Signs: Last Vital Signs Temp 97.9 F 09/13/23 14:32 Pulse 81 09/13/23 14:32 BP 120/76 09/13/23 14:32 Pulse Ox 97 09/13/23 14:32 Oxygen Delivery Method Room Air 09/13/23 14:32 Const General: healthy appearing and anxious HEENT Head: Yes normal to inspection, Yes normocephalic and Yes atraumatic Ears: hearing grossly normal bilaterally and external ears normal General nose exam: Normal external nose present Throat: Yes posterior oropharynx normal Resp Effort & Inspection: normal respiratory effort Auscultation: clear to auscultation bilaterally Cardio Rate: regular rate Rhythm: regular rhythm Heart sounds: S1 normal heart sound present and S2 normal heart sound present Assessment & Plan Assessment & Plan (1) Weight loss: Code(s): R63.4 - Abnormal weight loss Plan: The patient is given a note to return to work. He states he will follow up with his PCP and make sure he gets a CT scan accomplished. Plan See plan Coding Level of Care Code Est Pt Level 3 (55289) Diagnoses Weight loss R63.4
[2023-09-13 14:32] VITALS: BP 120/76; PULSE 81; TEMP 36.6; O2SAT 97
== END 2023-09-13 15:17 | disposition home or self-care (01) ==
PROVIDERS: PCP Internal Medicine; Visit Provider Physician Assistant Medical
DX: R63.4 Abnormal weight loss (principal)
CPT/HCPCS: 99213

== ENCOUNTER 2023-12-01 14:22 | Outpatient (AMB) | payer OTHER, SELFPAY ==
--- NOTE | 2023-12-01 14:28 | A.OFFPC_ITS ---
Vital Signs 12/01/23 14:29 Height 5 ft 9 in Weight 153 lb 2 oz BMI 22.6 BP 120/60 Blood Pressure Location Lt brachial Position Sitting Intake Visit Reasons: Annual Exam Intake Note: Patient is here today for a physical. 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 Consultant Required: No General Maintenance Technician: Not Required per policy Accompanied by: Self / Same As Patient Allergies tomato Adverse Reaction (Mild, Verified 12/01/23 15:09) Hives Medication List - Last Reconciled 12/01/23 by Sumeet Bobby MD aspirin (Adult Aspirin Regimen) 81 mg PO DAILY atorvastatin 80 mg PO DAILY 90 days blood pressure monitor check BP daily cyclobenzaprine 10 mg PO BEDTIME lisinopril 20 mg PO DAILY sildenafil 25 mg PO DAILY PRN trazodone 25 mg (1/2 x 50 mg) PO BEDTIME PRN Tobacco use date assessed: 12/01/23 Dental Screening Dental Screen Date: 05/26/23 HPI Annual Exam HPI Details 38-year-old male presents to the office requesting an annual physical. In addition, patient is complaining of left shoulder pain. He strained his arm 2 weeks ago and was seen at the urgent care facility. Was started on cyclobenzaprine with minimal relief. COUNTS INCLUDE 234 BEDS AT THE [facility] Medical History Hypertension CVA (cerebral vascular accident) Coagulopathy Carotid stenosis Plantar fasciitis of right foot Surgical History History of appendectomy Family History Mother Mental health disorder Mother Diabetes Other Substance use disorder Social History Household Members: Spouse and Children Housing: Apartment Are you a primary child care provider to a significant other at home: No Do you presently have visiting nurse or other home services: No Alcohol intake: current Alcohol intake frequency: holidays/special occasions only Alcohol type: beer and hard liquor Patient Tobacco Use Status: Former Tobacco user Tobacco use type: Cigarette Cigarette Packs Per Day: 0.5 Cigarettes Per Day: 9 e-Cigarette/Vaping Use: Former Use Second Hand Smoke Exposure: Yes Substance Use Type: Marijuana service: No Current occupational status: employed Current occupation: [employer] Cognitive needs: No Hearing needs: No Vision needs: Yes (glasses) Questionnaire PHQ-9 Over the last 2 weeks, how often have you been bothered by any of the following problems? 1. Little interest or pleasure in doing things: not at all 2. Feeling down, depressed, or hopeless: not at all 3. Trouble falling or staying asleep, or sleeping too much: not at all 4. Feeling tired or having little energy: nearly every day 5. Poor appetite or overeating: not at all 6. Feeling bad about yourself - or that you are a failure or have let yourself or your family down: not at all 7. Trouble concentrating on things, such as reading the newspaper or watching television: not at all 8. Moving or speaking so slowly that other people could have noticed. Or the opposite - being so fidgety or restless that you have been moving around a lot more than usual: not at all 9. Thoughts that you would be better off or of hurting yourself in some way: not at all Total score: 3 Depression Screening Interpretation: Negative Depression Screening Done: Yes Source: Developed by Drs. Rakan Nguyen, Tanya Miller, Reuben Flores and colleagues, with an educational michelle from [employer]. Thrive Questionnaire Date Thrive assessed: 12/01/23 I am a: Patient What is your living situation today?: I have a steady place to live Within the past 12 months, did the food you bought not last and you didn't have the money to get more?: Often true Within the past 12 months, did you worry whether your food would run out before you got money to buy more?: Often true Do you have trouble paying for medicines?: No Do you have trouble getting transportation to medical appointments?: No Do you have trouble paying your heating and electricity bill?: No Do you have trouble taking care of your child, family member or friend?: No Do you have trouble with day-to-day activities such as bathing, preparing meals, shopping, managing finances, etc.?: No Are you currently unemployed and looking for a job?: No Are you interested in more education?: No Please select the resources that you would like help with: Food Currently or been in a relationship where the following occur: No concerns reported THRIVE Score: 2 AUDIT C Alcohol Use Questionnaire (AUDIT-C) 1. How often do you have a drink containing alcohol?: Monthly or less 2. How many drinks containing alcohol do you have on a typical day when you are drinking?: 1 or 2 3. How often do you have six or more drinks on one occasion?: Never Total Score: 1 DIOGENES-7 AMB Questionnaire DIOGENES-7 Date DIOGENES - 7 assessed: 12/01/23 Feeling nervous, anxious, or on edge: 2 = More than half the days Not being able to stop or control worryin = Several days Worrying too much about different things: 1 = Several days Trouble relaxin = Nearly every day Being so restless that it is hard to sit still: 0 = Not at all Becoming easily annoyed or irritable: 0 = Not at all Feeling afraid as if something awful might happen: 0 = Not at all Total DIOGENES-7 score (0-4 normal; 5-9 mild; 10-14 moderate; 15-21 severe): 7 Source: Developed by Drs. Rakan Nguyen, Tanya Miller, Reuben Flores and colleagues, with an educational michelle from [employer]. Physical exam (Primary Care) Vital Signs: Last Vital Signs BP 120/60 12/01/23 14:29 Care Plan Goal for BP management: Blood pressure is in range. BMI result Body Mass Index 22.6 Tobacco/Smoking Status: Tobacco use Status Tobacco use date assessed 12/01/23 12/01/23 14:34 Patient Tobacco Use Status Former Tobacco user 12/01/23 14:34 Tobacco use type Cigarette 12/01/23 14:34 e-Cigarette/Vaping Use Former Use 12/01/23 14:34 PHQ-9: PHQ-9 Score PHQ-9: Total score 3 12/01/23 14:34 Depression Screening Interpretation: Negative Thrive Assessment: Date of Thrive Assessment Date Thrive assessed 12/01/23 12/01/23 14:34 Currently or been in a relationship where the following occur: No concerns reported Const General: cooperative and healthy appearing Nutritional Appearance: well nourished Orientation/consciousness: patient oriented x3 Limitations: no limitations HENMT Head: Yes normal to inspection Eyes General: appearance normal, both eyes and all related structures Neck Neck: Yes normal visual inspection Chest Chest palpation & inspection: normal palpation of entire chest wall Resp Effort & Inspection: normal respiratory effort Neuro General: patient oriented x3 Extrem Other: Left shoulder: No AC joint tenderness. Full range of motion. Assessment and Plan Assessment & Plan (1) Annual physical exam: Code(s): Z00.00 - Encounter for general adult medical examination without abnormal findings Plan: Blood work has been ordered. Patient was encouraged to get it done. (2) Left shoulder strain: Code(s): S46.912A - Strain of unspecified muscle, fascia and tendon at shoulder and upper arm level, left arm, initial encounter Plan: Mostly muscular in origin. Physical therapy suggested. Coding Level of Care Code Est Pt Level 3 (51349) Est Pt Prev Care 18-39y(03056) Diagnoses Annual physical exam Z00.00 Left shoulder strain S46.912A
[2023-12-01 14:29] VITALS: BP 120/60; BMI 22.6
== END 2023-12-01 15:08 | disposition home or self-care (01) ==
PROVIDERS: PCP Nurse Practitioner Family; Visit Provider Internal Medicine
DX: Z00.00 Encounter for general adult medical examination without abnormal findings (principal); Z87.891 Personal history of nicotine dependence; S46.912A Strain of unspecified muscle, fascia and tendon at shoulder and upper arm level, left arm, initial encounter
CPT/HCPCS: 99395

== ENCOUNTER 2024-06-05 14:55 | Outpatient (AMB) | payer OTHER, SELFPAY ==
--- NOTE | 2024-06-05 15:18 | A.OFFPC_ITS ---
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 Accompanied by: Self / Same As Patient Allergies tomato Adverse Reaction (Mild, Verified 06/17/24 13:34) Hives Medication List - Last Reconciled 06/05/24 by ALEENA Clancy aspirin (Adult Aspirin Regimen) 81 mg PO DAILY atorvastatin 80 mg PO DAILY 90 days blood pressure monitor check BP daily lisinopril 20 mg PO DAILY sildenafil 25 mg PO DAILY PRN trazodone 25 mg (1/2 x 50 mg) PO BEDTIME PRN Tobacco use date assessed: 06/05/24 Dental Screening Dental Screen Date: 06/05/24 Did you have a dental visit in the last 12 months?: Yes Did you have a dental problem in the last 6 months where you did not have access to dental care?: No Was dental information given to patient?: Patient has dentist HPI Right shoulder pain HPI Details The patient is a 39-year-old male presenting with complaints of right shoulder pain Reports that he has been having right shoulder pain for a week and a half 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 Denies numbness or tingling right shoulder pain for 1.5 weeks. 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 Reports that they have a weight limit. Reports that he tried ibuprofen 800mg, Tylenol 1000mg, lidocaine patches without any relief. No swelling or discoloration noted. Limited ROM- unable to raise arm above head, unable to scratch his back. Denies numbness or tingling. REPLACED BY [facility] Medical History Hypertension CVA (cerebral vascular accident) Coagulopathy Carotid stenosis Plantar fasciitis of right foot Surgical History History of appendectomy Family History Mother Mental health disorder Mother Diabetes Other Substance use disorder Social History Household Members: Spouse and Children Housing: Apartment Are you a primary in home caregiver to a significant other at home: No Do you presently have visiting nurse or other home services: No Alcohol intake: current Alcohol intake frequency: holidays/special occasions only Alcohol type: beer and hard liquor Patient Tobacco Use Status: Current everyday Tobacco user Tobacco use type: Cigarette Cigarettes Per Day: 3 e-Cigarette/Vaping Use: Former Use Second Hand Smoke Exposure: Yes Substance Use Type: Marijuana service: No Current occupational status: employed Current occupation: [employer] Cognitive needs: No Hearing needs: No Vision needs: No Questionnaire PHQ-9 Over the last 2 weeks, how often have you been bothered by any of the following problems? 1. Little interest or pleasure in doing things: not at all 2. Feeling down, depressed, or hopeless: not at all 3. Trouble falling or staying asleep, or sleeping too much: not at all 4. Feeling tired or having little energy: not at all 5. Poor appetite or overeating: not at all 6. Feeling bad about yourself - or that you are a failure or have let yourself or your family down: not at all 7. Trouble concentrating on things, such as reading the newspaper or watching television: not at all 8. Moving or speaking so slowly that other people could have noticed. Or the opposite - being so fidgety or restless that you have been moving around a lot more than usual: not at all 9. Thoughts that you would be better off or of hurting yourself in some way: not at all Total score: 0 Depression Screening Interpretation: Negative Depression Screening Done: Yes 36155 - PHQ-9 Billing: Yes Source: Developed by Drs. Rakan Nguyen, Tanya Miller, Reuben Flores and colleagues, with an educational michelle from [employer]. Thrive Questionnaire Date Thrive assessed: 06/05/24 I am a: Patient What is your living situation today?: I have a steady place to live Within the past 12 months, did the food you bought not last and you didn't have the money to get more?: Never true Within the past 12 months, did you worry whether your food would run out before you got money to buy more?: Never true Do you have trouble paying for medicines?: No Do you have trouble getting transportation to medical appointments?: No Do you have trouble paying your heating and electricity bill?: No Do you have trouble taking care of your child, family member or friend?: No Do you have trouble with day-to-day activities such as bathing, preparing meals, shopping, managing finances, etc.?: No Are you currently unemployed and looking for a job?: No Are you interested in more education?: No Please select the resources that you would like help with: None Currently or been in a relationship where the following occur: No concerns rep orted THRIVE Score: 0 AUDIT C Alcohol Use Questionnaire (AUDIT-C) 1. How often do you have a drink containing alcohol?: Monthly or less 2. How many drinks containing alcohol do you have on a typical day when you are drinking?: 1 or 2 3. How often do you have six or more drinks on one occasion?: Never Total Score: 1 DIOGENES-7 AMB Questionnaire DIOGENES-7 Date DIOGENES - 7 assessed: 06/05/24 Feeling nervous, anxious, or on edge: 1 = Several days Not being able to stop or control worryin = Not at all Worrying too much about different things: 0 = Not at all Trouble relaxin = Not at all Being so restless that it is hard to sit still: 0 = Not at all Becoming easily annoyed or irritable: 0 = Not at all Feeling afraid as if something awful might happen: 0 = Not at all Total DIOGENES-7 score (0-4 normal; 5-9 mild; 10-14 moderate; 15-21 severe): 1 Source: Developed by Drs. Rakan Nguyen, Tanya Miller, Reuben Flores and colleagues, with an educational michelle from [employer] DIOGENES-7 Assessment Billing DIOGENES-7 Assessment Tool: DIOGENES-7 Assessment 56451 Review of Systems Const Denies headache(s) Eyes Denies loss of vision ENT Denies vertigo, Denies dizziness, Denies headache(s) and Denies sore throat Card Denies chest pain, Denies leg edema and Denies lightheadedness Resp Denies cough, Denies hemoptysis and Denies wheezing GI Denies abdominal pain, Denies melena, Denies constipation, Denies diarrhea and Denies vomiting Denies dysuria, Denies urinary frequency and Denies urinary urgency Musc Reports arthralgias (right shoulder), Denies joint swelling, Denies numbness and Denies tingling Neuro Denies Abnormal speech present, Denies behavioral changes, Denies vertigo, Denies dizziness, Denies headache(s), Denies loss of vision, Denies memory loss, Denies numbness and Denies tingling Psych Denies anxiety, Denies behavioral changes, Denies depression, Denies memory loss and Denies panic attacks Thad/Lymph Denies easy bleeding and Denies easy bruising Aller/Immun Denies wheezing Physical exam (Primary Care) Vital Signs: Last Vital Signs Temp 98.8 F 06/05/24 15:21 Resp 16 06/05/24 15:21 BP 102/52 L 06/05/24 15:21 BMI result Body Mass Index 24.4 Tobacco/Smoking Status: Tobacco use Status Tobacco use date assessed 06/05/24 06/05/24 15:44 Patient Tobacco Use Status Current everyday Tobacco 06/05/24 15:44 Tobacco use type Cigarette 06/05/24 15:18 e-Cigarette/Vaping Use Former Use 06/05/24 15:18 PHQ-9: PHQ-9 Score PHQ-9: Total score 0 06/05/24 16:07 Depression Screening Interpretation: Negative Thrive Assessment: Date of Thrive Assessment Date Thrive assessed 06/05/24 06/05/24 15:18 Currently or been in a relationship where the following occur: No concerns reported Const General: healthy appearing, no acute distress, alert and awake Nutritional Appearance: well nourished Orientation/consciousness: oriented to person, oriented to place and oriented to time HENMT Ears: TM's normal bilaterally General nose exam: Normal nasal mucous membranes and turbinates present Eyes Conjunctivae: conjunctivae normal Sclerae: sclerae normal Pupils: Equal, round and reactive pupils present Neck Neck: Yes no lymphadenopathy and Yes no JVD Thyroid: Thyroid normal Carotids: no bruits Resp Effort & Inspection: normal respiratory effort and not tachypneic Auscultation: no crackles, no rales, no rhonchi and no wheezes Cardio Rate: regular rate Rhythm: regular rhythm Heart sounds: no murmurs and normal S1 and S2 GI Palpation (GI): Soft to palpation, nontender, no hepatomegaly and no splenomegaly Auscultation: normal bowel sounds Skin General skin exam: no rashes or lesions noted and dry skin Neuro General: oriented to person, oriented to place and oriented to time Cranial nerves: Yes Equal, round and reactive pupils present Speech: No Abnormal speech present Gait exam (Neuro): Normal gait present Motor exam (neuro): no tremor noted Extrem Right upper extremity: full ROM and shoulder/upper arm Details: tenderness and abnormal ROM; no swelling, no ecchymosis, no crepitus and no unusual warmth Left upper extremity: full ROM Right lower extremity: full ROM; no edema Left lower extremity: full ROM; no edema Psych Mental Status: mental status grossly normal Speech and movement: Normal speech and movement present Affect: normal affect Attitude: cooperative Thought process: Normal thought process present Coding Level of Care Code Est Pt Level 3 (91265) Diagnoses Acute pain of right shoulder M25.511 Chronicity: acute Additional Codes DIOGENES-7 Assessment Billing - DIOGENES-7 Assessment Tool: DIOGENES-7 Assessment 92591 ([id number]) PHQ-9 - 84955 - PHQ-9 Billing: Yes ([id number]) Time Spent (min) 33 Assessment & Plan Assessment & Plan (1) Right shoulder pain: Code(s): M25.511 - Pain in right shoulder Category: Medical Qualifiers: Chronicity: acute Qualified Code(s): M25.511 - Pain in right shoulder Plan: Right shoulder x-ray ordered further evaluate Orders: Orders XR shoulder RT min 2V 06/05/24 M25.511 - Pain in right shoulder Medications: New 2 cyclobenzaprine 10 mg PO BEDTIME PRN 30 tabs 3RF muscle spasm M25.511 - Pain in right shoulder diclofenac sodium 3% 1 appl topical BID 100 grams 3RF M25.511 - Pain in right shoulder Refilled sildenafil administer 30 minutes to 4 hours before activity 25 mg PO DAILY PRN 24 tabs 0RF sexual activity N52.9 - Male erectile dysfunction, unspecified sildenafil administer 30 minutes to 4 hours before activity 25 mg PO DAILY PRN 24 tabs 0RF sexual activity N52.9 - Male erectile dysfunction, unspecified
[2024-06-05 15:21] VITALS: BP 102/52; RESP 16; TEMP 37.1; BMI 24.4
== END 2024-06-05 16:21 | disposition home or self-care (01) ==
LOC: HO.HMCH 14:55
PROVIDERS: PCP Internal Medicine
DX: M25.511 Pain in right shoulder (principal)

== ENCOUNTER → 2024-06-05 14:55 | Outpatient (BNVA) | payer OTHER, SELFPAY | PROVIDERS: PCP Internal Medicine | DX: M25.511 Pain in right shoulder (principal) | CPT/HCPCS: 96127; 99212 ==